=== PATIENT | male | born 1945 | race Caucasian/White ===

== ENCOUNTER → 2017-10-16 15:05 | Outpatient (CLI) | payer MEDICARE, SELFPAY ==
[2017-10-16 16:10] LABS: PSA,Total- Diagnostic < 0.01 ng/mL (0.0-4.0)
== END ==
PROVIDERS: Family Provider Family Medicine; PCP Family Medicine; Visit Provider Urology
DX: C61 Malignant neoplasm of prostate (principal)
CPT/HCPCS: 36415; 84153

== ENCOUNTER → 2018-02-02 09:10 | Outpatient (CLI) | payer MEDICARE, SELFPAY | PROVIDERS: Family Provider Family Medicine; PCP Family Medicine | DX: R00.2 Palpitations (principal) | CPT/HCPCS: 93225; 93226 ==

== ENCOUNTER → 2018-04-14 15:13 | Outpatient (CLI) | payer MEDICARE, SELFPAY ==
[2018-04-14 16:47] LABS: PSA,Total- Diagnostic 0.01 ng/mL (0.0-4.0)
== END ==
PROVIDERS: Family Provider Family Medicine; PCP Family Medicine; Referring Provider Urology; Visit Provider Urology
DX: C61 Malignant neoplasm of prostate (principal)
CPT/HCPCS: 36415; 84153

== ENCOUNTER → 2018-10-19 16:08 | Outpatient (CLI) | payer MEDICARE, SELFPAY ==
[2017-05-28 12:45] VITALS: BMI 24.0
[2018-10-19 17:57] LABS: PSA,Total- Diagnostic 0.01 ng/mL (0.0-4.0)
== END ==
PROVIDERS: Family Provider Family Medicine; PCP Family Medicine; Referring Provider Urology; Visit Provider Urology
DX: C61 Malignant neoplasm of prostate (principal)
CPT/HCPCS: 36415; 84153

== ENCOUNTER → 2018-11-12 15:38 | Outpatient (CLI) | payer MEDICARE, SELFPAY ==
[2017-05-28 12:45] VITALS: BMI 24.0
[2018-11-12 16:48] LABS: Anion Gap 7 (5-15); BUN 35 mg/dL (7-18); BUN/Creat Ratio 24.5 RATIO (10-20); Calcium,Total 8.9 mg/dL (8.5-10.1); Chloride 106 mmol/L (98-107); Creatinine, Serum 1.43 mg/dL (0.70-1.30); EST Glomerular Filtration Rate 52 mL/min (>60); Est Glom Filt Rate - Afr Amer 63 mL/min (>60); Glucose 86 mg/dL (74-106); Potassium 4.1 mmol/L (3.5-5.1); Sodium Level 142 mmol/L (136-145)
== END ==
PROVIDERS: Family Provider Family Medicine; PCP Family Medicine; Referring Provider Family Medicine; Visit Provider Family Medicine
DX: I10 Essential (primary) hypertension (principal)
CPT/HCPCS: 36415; 80048

== ENCOUNTER → 2019-04-09 10:34 | Outpatient (CLI) | payer MEDICARE, SELFPAY ==
[2017-05-28 12:45] VITALS: BMI 24.0
[2019-04-09 11:28] LABS: Anion Gap 6 (5-15); BUN 25 mg/dL (7-18); BUN/Creat Ratio 18.4 RATIO (10-20); Chloride 106 mmol/L (98-107); Creatinine, Serum 1.36 mg/dL (0.70-1.30); EST Glomerular Filtration Rate 55 mL/min (>60); Est Glom Filt Rate - Afr Amer 66 mL/min (>60); Glucose 89 mg/dL (74-106); PSA,Total- Diagnostic 0.02 ng/mL (0.0-4.0); Potassium 3.5 mmol/L (3.5-5.1); Sodium Level 141 mmol/L (136-145)
== END ==
PROVIDERS: Family Provider Family Medicine; PCP Family Medicine; Referring Provider Urology; Visit Provider Urology
DX: C61 Malignant neoplasm of prostate (principal); I10 Essential (primary) hypertension
CPT/HCPCS: 36415; 80048; 84153

== ENCOUNTER → 2019-07-13 11:20 | Outpatient (CLI) | payer MEDICARE, SELFPAY ==
[2019-07-13 12:02] LABS: Absolute Lymphocyte Count 1.75 X10^3/uL (0.83-4.51); Absolute Neutrophil Count 3.7 X10^3/uL (2.0-7.7); Basophil# 0.04 X10^3/uL; Basophil% 0.6 % (0-1); Eosinophil# 0.12 X10^3/uL; Eosinophils% 1.9 % (0-5); Hematocrit 42.1 % (40-54); Hemoglobin 14.5 g/dL (13.0-16.5); Lymphocyte # 1.75 X10^3/ul (4.0); Lymphocyte % 28.2 % (19-41); Mean Corp Hgb Conc 34.4 g/dL (32-36); Mean Corpuscular Hgb 30.2 pg (27.0-32.0); Mean Corpuscular Volume 87.7 fL (80-94); Mean Platelet Vol. 9.6 fl (6.2-12.0); Monocyte# 0.57 X10^3/uL; Monocyte% 9.2 % (0-10); NRBC Flagged by Analyzer 0 % (0-5); Neutrophil % 59.8 % (47-70); Platelet Count 202 K/mm3 (150-450); RBC Distribution Width CV 12.6 % (11.6-14.6); RBC Distribution Width SD 40.3 fl (35.1-43.9); White Blood Count 6.2 K/mm3 (4.4-11.0)
[2019-07-13 12:44] LABS: AST(SGOT) 24 U/L (15-37); Alanine Aminotransfer ALT/SGPT 37 U/L (16-61); Albumin, Serum 3.6 g/dL (3.2-5.0); Alkaline Phosphatase 56 U/L (45-117); Anion Gap 6 (5-15); BUN 25 mg/dL (7-18); BUN/Creat Ratio 18.9 RATIO (10-20); Calcium,Total 8.8 mg/dL (8.5-10.1); Chloride 103 mmol/L (98-107); Creatinine, Serum 1.32 mg/dL (0.70-1.30); EST Glomerular Filtration Rate 57 mL/min (>60); Est Glom Filt Rate - Afr Amer 69 mL/min (>60); Globulin 3.7 g/dL (2.2-4.2); Glucose 93 mg/dL (74-106); Magnesium 1.9 mg/dL (1.6-2.6); Potassium 3.8 mmol/L (3.5-5.1); Protein, Total 7.3 g/dL (6.4-8.2); Sodium Level 138 mmol/L (136-145); T4 Total, Thyroxin 8.4 ug/dL (4.5-12.1)
[2019-07-13 14:13] LABS: T3 Total - Triiodothyronine 1.04 ng/mL (0.6-1.81)
== END ==
PROVIDERS: Family Provider Family Medicine; PCP Family Medicine; Referring Provider Internal Medicine Cardiovascular Disease; Visit Provider Internal Medicine Cardiovascular Disease
DX: R06.09 Other forms of dyspnea (principal)
CPT/HCPCS: 36415; 80053; 83735; 84436; 84443; 84480; 85025

== ENCOUNTER → 2019-07-27 06:56 | Outpatient (CLI) | payer MEDICARE, SELFPAY ==
[2017-05-28 12:45] VITALS: BMI 24.0
[2019-07-27 08:24] LABS: Anion Gap 4 (5-15); BUN 24 mg/dL (7-18); Calcium,Total 9.2 mg/dL (8.5-10.1); Chloride 104 mmol/L (98-107); Creatinine, Serum 1.33 mg/dL (0.70-1.30); EST Glomerular Filtration Rate 56 mL/min (>60); Est Glom Filt Rate - Afr Amer 68 mL/min (>60); Glucose 101 mg/dL (74-106); Potassium 3.6 mmol/L (3.5-5.1); Sodium Level 137 mmol/L (136-145)
[2019-07-27 08:26] LABS: BNP,B-Type NATRIURETIC PEPTIDE 438.5 pg/mL (0-100)
== END ==
PROVIDERS: Family Provider Family Medicine; PCP Family Medicine; Referring Provider Internal Medicine Cardiovascular Disease; Visit Provider Internal Medicine Cardiovascular Disease
DX: I48.91 Unspecified atrial fibrillation (principal)
CPT/HCPCS: 36415; 80048; 83880

== ENCOUNTER → 2019-11-29 15:05 | Outpatient (CLI) | payer MEDICARE, SELFPAY ==
[2017-05-28 12:45] VITALS: BMI 24.0
[2019-11-29 15:47] LABS: PSA,Total- Diagnostic 0.02 ng/mL (0.0-4.0)
== END ==
PROVIDERS: PCP Family Medicine; Visit Provider Urology
DX: C61 Malignant neoplasm of prostate (principal)
CPT/HCPCS: 36415; 84153

== ENCOUNTER → 2020-05-25 13:23 | Outpatient (CLI) | payer MEDICARE, SELFPAY ==
[2017-05-28 12:45] VITALS: BMI 24.0
[2020-05-25 15:34] LABS: PSA,Total- Diagnostic 0.02 ng/mL (0.0-4.0)
== END ==
PROVIDERS: PCP Family Medicine; Referring Provider Urology; Visit Provider Urology
DX: C61 Malignant neoplasm of prostate (principal)
CPT/HCPCS: 36415; 84153

== ENCOUNTER → 2020-12-15 11:40 | Outpatient (CLI) | payer MEDICARE, SELFPAY ==
[2020-12-15 13:17] LABS: PSA,Total- Diagnostic 0.03 ng/mL (0.0-4.0)
== END ==
PROVIDERS: PCP Family Medicine; Visit Provider Urology
DX: C61 Malignant neoplasm of prostate (principal)
CPT/HCPCS: 36415; 84153

== ENCOUNTER → 2021-02-02 13:40 | Outpatient (CLI) | payer MEDICARE, SELFPAY ==
[2017-05-28 12:45] VITALS: BMI 24.0
[2021-02-02 15:28] LABS: Hematocrit 40.7 % (40-54); Hemoglobin 14.1 g/dL (13.0-16.5); Mean Corp Hgb Conc 34.6 g/dL (32-36); Mean Corpuscular Hgb 30.4 pg (27.0-32.0); Mean Corpuscular Volume 87.7 fL (80-94); Mean Platelet Vol. 9.4 fl (6.2-12.0); Platelet Count 212 K/mm3 (150-450); RBC Distribution Width CV 12.7 % (11.6-14.6); RBC Distribution Width SD 40.8 fl (35.1-43.9); Red Blood Count 4.64 M/mm3 (4.6-6.2); White Blood Count 6.4 K/mm3 (4.4-11.0)
[2021-02-02 15:54] LABS: Anion Gap 8 (5-15); BUN 32 mg/dL (7-18); BUN/Creat Ratio 18.1 RATIO (10-20); Calcium,Total 9.5 mg/dL (8.5-10.1); Chloride 104 mmol/L (98-107); Creatinine, Serum 1.77 mg/dL (0.70-1.30); EST Glomerular Filtration Rate 40 mL/min (>60); Est Glom Filt Rate - Afr Amer 49 mL/min (>60); Glucose 112 mg/dL (74-106); Potassium 3.8 mmol/L (3.5-5.1); Sodium Level 139 mmol/L (136-145)
== END ==
PROVIDERS: PCP Family Medicine; Referring Provider Urology; Visit Provider Urology
DX: Z03.818 Encounter for observation for suspected exposure to other biological agents ruled out (principal)
CPT/HCPCS: 36415; 80048; 85027; 87426; C9803

== ENCOUNTER → 2021-02-26 15:34 | Outpatient (CLI) | payer MEDICARE, SELFPAY ==
[2017-05-28 12:45] VITALS: BMI 24.0
[2021-02-26 16:33] LABS: AST(SGOT) 25 U/L (15-37); Alanine Aminotransfer ALT/SGPT 48 U/L (16-61); Albumin, Serum 3.5 g/dL (3.2-5.0); Alkaline Phosphatase 65 U/L (45-117); Anion Gap 7 (5-15); BUN 30 mg/dL (7-18); BUN/Creat Ratio 16.9 RATIO (10-20); Calcium,Total 8.8 mg/dL (8.5-10.1); Chloride 105 mmol/L (98-107); Cholesterol 171 mg/dL (200); Creatinine, Serum 1.78 mg/dL (0.70-1.30); EST Glomerular Filtration Rate 40 mL/min (>60); Est Glom Filt Rate - Afr Amer 48 mL/min (>60); Globulin 3.6 g/dL (2.2-4.2); Glucose 106 mg/dL (74-106); High Density Lipoprotein 46 mg/dL; Potassium 3.6 mmol/L (3.5-5.1); Protein, Total 7.1 g/dL (6.4-8.2); Sodium Level 140 mmol/L (136-145); Triglycerides 211 mg/dL; Very Low Density Lipoprotein 42 mg/dL (5-40)
== END ==
PROVIDERS: PCP Family Medicine; Referring Provider Family Medicine; Visit Provider Family Medicine
DX: I10 Essential (primary) hypertension (principal)
CPT/HCPCS: 36415; 80053; 80061

== ENCOUNTER → 2021-03-13 12:03 | Outpatient (CLI) | payer MEDICARE, SELFPAY ==
[2021-03-13 12:33] LABS: Erythrocyte Sedimentation Rate 12 mm/hr (0-20)
[2021-03-13 13:10] LABS: Vitamin B12 530 pg/mL (211-911)
[2021-03-13 13:20] LABS: ALB/GLOB Ratio 0.9 RATIO (0.9-2.4); AST(SGOT) 24 U/L (15-37); Alanine Aminotransfer ALT/SGPT 44 U/L (16-61); Albumin, Serum 3.7 g/dL (3.2-5.0); Alkaline Phosphatase 69 U/L (45-117); Anion Gap 7 (5-15); BUN 31 mg/dL (7-18); BUN/Creat Ratio 23.3 RATIO (10-20); Calcium,Total 9.3 mg/dL (8.5-10.1); Chloride 102 mmol/L (98-107); Creatinine, Serum 1.33 mg/dL (0.70-1.30); EST Glomerular Filtration Rate 56 mL/min (>60); Est Glom Filt Rate - Afr Amer 68 mL/min (>60); Globulin 4.1 g/dL (2.2-4.2); Glucose 97 mg/dL (74-106); Potassium 3.7 mmol/L (3.5-5.1); Protein, Total 7.8 g/dL (6.4-8.2); Sodium Level 135 mmol/L (136-145); Thyroid Stim Hormone (TSH) 4.12 uIU/mL (0.358-3.74)
== END ==
PROVIDERS: PCP Family Medicine; Referring Provider Family Medicine; Visit Provider Family Medicine
DX: R41.0 Disorientation, unspecified (principal); R26.89 Other abnormalities of gait and mobility; R51.9 Headache, unspecified
CPT/HCPCS: 36415; 80053; 82607; 84443; 85652

== ENCOUNTER 2021-03-15 13:36 | Emergency (ER) | payer MEDICARE, SELFPAY ==
[2021-03-15] VITALS (12 sets, daily range): BP systolic 112–177; BP diastolic 56–95; PULSE 55–83; RESP 12–19; TEMP 36.3; O2SAT 94–98; BMI 25.1
--- NOTE | 2021-03-15 14:56 | EKG12_ITS ---
Test Reason : NEURO S/SX Blood Pressure : / mmHG Vent. Rate : 059 BPM Atrial Rate : 059 BPM P-R Int : 224 ms QRS Dur : 156 ms QT Int : 478 ms P-R-T Axes : 030 -60 071 degrees QTc Int : 473 ms Sinus bradycardia with 1st degree A-V block Left axis deviation Left bundle branch block Abnormal ECG Confirmed by JUAQUIN FULLER, CIRILO ([id number]), supervising editor news reel TREVON CARTER ([id number]) on 03/20/2021 8:29:52 AM Referred By: MARYLOU Confirmed By:PRAKASH REZA MD
--- NOTE | 2021-03-15 14:56 | CT_ITS ---
STUDY: CT HEAD STROKE PROTOCOL W/O CONTRAST INJECTION REASON FOR EXAM: Male, 75 years old. Neuro deficit, acute, stroke suspected RADIATION DOSAGE (If Supplied By Facility): CTDIvol = ( ) mGy, DLP = ( ) mGycm TECHNIQUE: Transaxial CT imaging of the brain was performed without administration of intravenous contrast material. Individualized dose optimization techniques were used for this CT. COMPARISON: No relevant priors. FINDINGS: Normal soft tissue structures. Normal calvarium. There is moderate cerebral atrophy with widening of the extra-axial spaces and ventricular dilatation. There is a region of low attenuation within the right parietal and occipital lobes with mass effect on the posterior horn of the right lateral ventricle. There is right to left midline shift of 5 mm. Normal white matter tracts of the cerebral hemispheres. Normal basal ganglia and thalami. Normal brainstem. There is mild cerebellar atrophy. There is no intracranial hemorrhage. Normal visualized paranasal sinuses. CT/STROKE Brain/Head without Cont IMPRESSION: Region of low attenuation involving the right parietal and occipital lobes which may be secondary to an acute infarct or a possible underlying mass with associated edema; there is associated right to left midline shift of 5 mm. Recommend MRI with contrast for further characterization. N.B. : The above Results were Read Back by Shonna Brewster MD to Dr Catherine MD, and understanding confirmed on 03/15/2021 16:34:11 (ET). Electronically Signed: Shonna Brewster MD at 16:35 EDT Tel , Service support ,
--- NOTE | 2021-03-15 14:56 | RAD_ITS ---
STUDY: X-RAY CHEST REASON FOR EXAM: Male, 75 years old. Neuro deficit, acute, stroke suspected TECHNIQUE: Single frontal view of the chest. COMPARISON: 01/08/2017 FINDINGS: There is no new focal consolidation. Normal size heart. Normal mediastinum and liane. Normal visualized pulmonary arteries. Normal visualized aortic arch and descending thoracic aorta. Normal visualized thoracic spine. There are stable left posterior rib deformities consistent with healed fractures. There is no demonstrated abnormality of the visualized soft tissue structures of the upper abdomen. RAD/Chest 1 View IMPRESSION: No acute cardiopulmonary process. Electronically Signed: Shonna Brewster MD at 15:45 EDT Tel , Service support ,
--- NOTE | 2021-03-15 14:57 | EDS_ITS ---
HPI <Dr. Patrick Alexander DO - Last Filed: 03/16/21 10:11> History of Present Illness Chief Complaint: Neuro S/Sx Informant: patient and spouse/S.O. Narrative Narrative: Presents for evaluation reported concerns of stroke symptoms. Symptoms started back March 05 approximately 10 days ago. Stated initially earlier in February that headache and fevers with Covid testing is negative. On and off headaches since then. On the he noted tingling weakness on the left side. He is right-hand dominant. States he went seen in outpatient physician office was diagnosed with sinusitis placed on antibiotics for 10 days. 2 days later saw his PCP on the , was told nothing can get done until antibiotics were done. He reported persistent left-sided symptoms at that time. Denies stroke history. History of paroxysmal atrial fibrillation. He is followed by cardiology in [place]. He has had cardiac ablations in the past however placed on amiodarone which maintains his normal sinus rhythm. He is on Xarelto with no missed doses. He states he was off Xarelto at the end of January for a couple days due to hydrocele procedure. He states he is unable to see periphery on the left eye also with onset of symptoms. Spouse states called PCP a week ago blood work was obtained and they are trying to get an outpatient MRI. They called back today with concerns and was told to go to the emergency department. Denies any cardiac stent history or any aspirin therapy. Prior similar symptoms: No PFSH <Dr. Patrick Alexander DO - Last Filed: 03/16/21 10:11> [facility] Medical History (Updated 03/16/21 @ 10:[address] Patrick Alexander DO) Atrial fibrillation Hypertension Prostate cancer Home Medications amiodarone 200 mg PO DAILY 03/15/21 [History Last Taken 03/15/21] amlodipine 10 mg PO DAILY 03/15/21 [History Last Taken 03/15/21] amoxicillin-pot clavulanate 1 tab PO Q12H 03/15/21 [History Last Taken 03/15/21] coQ10 (ubiquinol) 100 mg PO DAILY 03/15/21 [History Last Taken 03/15/21] hydrochlorothiazide 25 mg PO DAILY 03/15/21 [History Last Taken 03/15/21] losartan 100 mg PO DAILY 03/15/21 [History Last Taken 03/15/21] metoprolol tartrate 25 mg PO QHS 03/15/21 [History Last Taken 03/14/21] multivitamin 1 tab PO DAILY 03/15/21 [History Last Taken 03/14/21] potassium chloride 10 meq PO QHS 03/15/21 [History Last Taken 03/14/21] rivaroxaban [Xarelto] 15 mg PO QHS 03/15/21 [History Last Taken 03/14/21] Allergy/AdvReac Type Severity Reaction Status Date / Time adhesive tape AdvReac WELTS WITH Verified 03/15/21 13:41 PROLONGED USE Social History Smoking Status: Former smoker ROS <Dr. Patrick Alexander DO - Last Filed: 03/16/21 10:11> ROS ED Constitutional Constitutional ED: Denies chills, fever(s) or sweats Eyes Eyes: Reports other Details: Peripheral vision loss to the left ; Denies change in vision ENT ENT ED: Denies dysphagia or sore throat Cardiovascular Cardiovascular: Denies chest pain, leg edema, palpitations or racing heartbeat Respiratory/Chest Respiratory/Chest: Denies cough, dyspnea or dyspnea on exertion Gastrointestinal Gastrointestinal: Denies abdominal pain, diarrhea, nausea or vomiting Genitourinary Genitourinary ED: Denies dysuria, hematuria or urinary frequency Musculoskeletal Musculoskeletal: Denies back pain, extremity pain or neck pain Integumentary Denies rash or wounds Neurologic Neurologic: Reports headache(s) and paresthesias; Denies weakness EXAM <Dr. Patrick Alexander DO - Last Filed: 03/16/21 10:11> Physical Exam Const Vital Signs: 03/15/21 13:41 03/15/21 15:44 03/15/21 16:24 Temperature 97.4 F L Temperature Source Temporal Pulse Rate 63 57 L 61 Respiratory Rate 17 19 H 12 Blood Pressure 177/61 H 153/56 H Blood Pressure Mean 99 88 Pulse Ox 97 95 97 Oxygen Delivery Method Room Air Room Air Room Air 03/15/21 16:30 03/15/21 17:10 03/15/21 17:30 Temperature Temperature Source Pulse Rate 66 63 55 L Respiratory Rate 16 12 16 Blood Pressure 141/85 H 141/58 H 138/56 H Blood Pressure Mean 103 85 83 Pulse Ox 97 98 95 Oxygen Delivery Method Room Air Room Air Room Air 03/15/21 18:30 03/15/21 20:00 03/15/21 21:00 Temperature Temperature Source Pulse Rate 57 L 62 68 Respiratory Rate 18 12 18 Blood Pressure 149/59 H 137/95 H 132/68 H Blood Pressure Mean 89 109 89 Pulse Ox 95 95 94 Oxygen Delivery Method Room Air Room Air Room Air 03/15/21 21:09 03/15/21 22:00 03/15/21 23:00 Temperature Temperature Source Pulse Rate 83 65 68 Respiratory Rate 14 12 16 Blood Pressure 112/79 147/69 H 137/58 H Blood Pressure Mean 90 95 84 Pulse Ox 97 97 94 Oxygen Delivery Method Room Air Room Air Room Air 03/16/21 03:38 03/16/21 03:39 03/16/21 05:27 Temperature 98.0 F Temperature Source Pulse Rate 78 79 Respiratory Rate 16 16 16 Blood Pressure 134/56 H 134/56 H 161/67 H Blood Pressure Mean 82 82 98 Pulse Ox 97 97 95 Oxygen Delivery Method Room Air Room Air Positive well nourished and well developed General Appearance ED: well developed and NAD HEENT Reports moist mucous membranes normocephalic and atraumatic Eyes EOMs intact bilaterally and conjunctivae normal Eyes Narrative: Left eye peripheral hemianopsia General Eye ED: Yes normal appearance of both eyes Neck no lymphadenopathy and supple General: Negative for tenderness Chest Wall Chest: Negative for tenderness Resp normal respiratory effort and normal air movement Effort and Inspection: symmetric chest movement; Negative for respiratory distress Cardio regular rate, regular rhythm and no murmurs Peripheral Pulses: pulses 2+ throughout GI normal to inspection, nondistended, normoactive bowel sounds and non-tender Palpation: Negative for guarding or rebound tenderness present Back/Spine no CVA tenderness and no thoracic nor lumbar tenderness Extremity normal to inspection General Extremety ED: Negative for edema or tenderness General Extremity: Negative for edema Neuro oriented x3 Neuro Narrative: NIH of 3 for left hemianopsia, left leg drift, paresthesias lateral aspect distal left leg lower lateral distal forearm. Sensorium / Orientation: awake and alert Skin no rashes or lesions noted and no wounds STROKE Vital Signs/Narrative: Vital Signs Resp BP Pulse Ox 03/16/21 05:27 16 161/67 H 95 <Christopher Phillips MD - Last Filed: 03/15/21 23:58> Physical Exam Const Vital Signs: 03/15/21 13:41 03/15/21 15:44 03/15/21 16:24 Temperature 97.4 F L Temperature Source Temporal Pulse Rate 63 57 L 61 Respiratory Rate 17 19 H 12 Blood Pressure 177/61 H 153/56 H Blood Pressure Mean 99 88 Pulse Ox 97 95 97 Oxygen Delivery Method Room Air Room Air Room Air 03/15/21 16:30 03/15/21 17:10 03/15/21 17:30 Temperature Temperature Source Pulse Rate 66 63 55 L Respiratory Rate 16 12 16 Blood Pressure 141/85 H 141/58 H 138/56 H Blood Pressure Mean 103 85 83 Pulse Ox 97 98 95 Oxygen Delivery Method Room Air Room Air Room Air 03/15/21 18:30 03/15/21 20:00 03/15/21 21:00 Temperature Temperature Source Pulse Rate 57 L 62 68 Respiratory Rate 18 12 18 Blood Pressure 149/59 H 137/95 H 132/68 H Blood Pressure Mean 89 109 89 Pulse Ox 95 95 94 Oxygen Delivery Method Room Air Room Air Room Air 03/15/21 21:09 03/15/21 22:00 03/15/21 23:00 Temperature Temperature Source Pulse Rate 83 65 68 Respiratory Rate 14 12 16 Blood Pressure 112/79 147/69 H 137/58 H Blood Pressure Mean 90 95 84 Pulse Ox 97 97 94 Oxygen Delivery Method Room Air Room Air Room Air 03/16/21 03:38 03/16/21 03:39 03/16/21 05:27 Temperature 98.0 F Temperature Source Pulse Rate 78 79 Respiratory Rate 16 16 16 Blood Pressure 134/56 H 134/56 H 161/67 H Blood Pressure Mean 82 82 98 Pulse Ox 97 97 95 Oxygen Delivery Method Room Air Room Air STROKE Vital Signs/Narrative: Vital Signs Resp BP Pulse Ox 03/16/21 05:27 16 161/67 H 95 <Dr. Bernardo Ma MD - Last Filed: 03/16/21 08:00> Physical Exam Const Vital Signs: 03/15/21 13:41 03/15/21 15:44 03/15/21 16:24 Temperature 97.4 F L Temperature Source Temporal Pulse Rate 63 57 L 61 Respiratory Rate 17 19 H 12 Blood Pressure 177/61 H 153/56 H Blood Pressure Mean 99 88 Pulse Ox 97 95 97 Oxygen Delivery Method Room Air Room Air Room Air 03/15/21 16:30 03/15/21 17:10 03/15/21 17:30 Temperature Temperature Source Pulse Rate 66 63 55 L Respiratory Rate 16 12 16 Blood Pressure 141/85 H 141/58 H 138/56 H Blood Pressure Mean 103 85 83 Pulse Ox 97 98 95 Oxygen Delivery Method Room Air Room Air Room Air 03/15/21 18:30 03/15/21 20:00 03/15/21 21:00 Temperature Temperature Source Pulse Rate 57 L 62 68 Respiratory Rate 18 12 18 Blood Pressure 149/59 H 137/95 H 132/68 H Blood Pressure Mean 89 109 89 Pulse Ox 95 95 94 Oxygen Delivery Method Room Air Room Air Room Air 03/15/21 21:09 03/15/21 22:00 03/15/21 23:00 Temperature Temperature Source Pulse Rate 83 65 68 Respiratory Rate 14 12 16 Blood Pressure 112/79 147/69 H 137/58 H Blood Pressure Mean 90 95 84 Pulse Ox 97 97 94 Oxygen Delivery Method Room Air Room Air Room Air 03/16/21 03:38 03/16/21 03:39 03/16/21 05:27 Temperature 98.0 F Temperature Source Pulse Rate 78 79 Respiratory Rate 16 16 16 Blood Pressure 134/56 H 134/56 H 161/67 H Blood Pressure Mean 82 82 98 Pulse Ox 97 97 95 Oxygen Delivery Method Room Air Room Air STROKE Vital Signs/Narrative: Vital Signs Resp BP Pulse Ox 03/16/21 05:27 16 161/67 H 95 MDM <Dr. Patrick Alexander, DO - Last Filed: 03/16/21 10:11> [facility] Narrative Medical decision making narrative: Patient exam NIH of 3, he has deficits concerning of stroke. Symptoms 10 days, in addition he is on Xarelto therefore he is not a TPA candidate. Stroke work-up will be obtained and we will plan to admit for further work-up without a stroke history. EKG NSR. CT brain discussion with rads, notes right parietal-occipital edema with 5mm mass effect concerning for possible underlying mass. Patient with history of remote prostate CA in past with resection. Denied any radio/chemo therapy. Decadron IV given. MRI w/wo contrast order for further delineation to assist with disposition due to no neurosurgery coverage at this facility. Patient signed out to evening physician. Lab Data Labs: Laboratory Results - last 24 hr 03/15/21 03/15/21 03/15/21 15:25 15:25 15:25 WBC 8.4 RBC 4.89 Hgb 14.9 Hct 43.3 MCV 88.5 MCH 30.5 MCHC 34.4 RDW Std Deviation 41.0 RDW Coeff of Mei 12.6 Plt Count 266 MPV 8.2 Immature Gran % (Auto) 0.600 Neut % (Auto) 79.7 H Lymph % (Auto) 10.8 L Ector % (Auto) 7.1 Eos % (Auto) 1.1 Baso % (Auto) 0.7 Absolute Neuts (auto) 6.7 Absolute Lymphs (auto) 0.90 Nucleated RBC % 0 PT 13.3 INR 1.1 APTT 28.9 Sodium 136 Potassium 4.0 Chloride 102 Carbon Dioxide 30.0 Anion Gap 4 L BUN 33 H Creatinine 1.31 H Estim Creat Clear Calc 53.49 Est GFR (MDRD) Af Amer 69 Est GFR (MDRD) Non-Af 57 L BUN/Creatinine Ratio 25.2 H Glucose 92 Calcium 9.6 Troponin I High Sens 10 Radiography Diagnostic Testing: Radiology Impression Brain CT 03/15/21 14:56 IMPRESSION: Region of low attenuation involving the right parietal and occipital lobes which may be secondary to an acute infarct or a possible underlying mass with associated edema; there is associated right to left midline shift of 5 mm. Recommend MRI with contrast for further characterization. N.B. : The above Results were Read Back by Shonna Brewster MD to Dr Catherine MD, and understanding confirmed on 03/15/2021 16:34:11 (ET). Electronically Signed: Shonna Brewster MD at 16:35 EDT Tel , Service support , ADDENDUM: 03/15/21 1642 IMPRESSION: Region of low attenuation involving the right parietal and occipital lobes which may be secondary to an acute infarct or a possible underlying mass with associated edema; there is associated right to left midline shift of 5 mm. Recommend MRI with contrast for further characterization. N.B. : The above Results were Read Back by Shonna Brewster MD to Dr Catherine MD, and understanding confirmed on 03/15/2021 16:34:11 (ET). Electronically Signed: Shonna Brewster MD at 16:35 EDT Tel , Service support , ADDENDUM: 03/15/21 1801 Chest X-Ray 03/15/21 14:56 IMPRESSION: No acute cardiopulmonary process. 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 Differential diagnosis includes glioblastoma versus choroid plexus carcinoma arising from the atrium of the right lateral ventricle. Electronically Signed: Neil Kiran MD at 21:04 EDT , Service support , <Christopher Phillips MD - Last Filed: 03/15/21 23:58> [facility] Lab Data Labs: Laboratory Results - last 24 hr 03/15/21 03/15/21 03/15/21 15:25 15:25 15:25 WBC 8.4 RBC 4.89 Hgb 14.9 Hct 43.3 MCV 88.5 MCH 30.5 MCHC 34.4 RDW Std Deviation 41.0 RDW Coeff of Mei 12.6 Plt Count 266 MPV 8.2 Immature Gran % (Auto) 0.600 Neut % (Auto) 79.7 H Lymph % (Auto) 10.8 L Ector % (Auto) 7.1 Eos % (Auto) 1.1 Baso % (Auto) 0.7 Absolute Neuts (auto) 6.7 Absolute Lymphs (auto) 0.90 Nucleated RBC % 0 PT 13.3 INR 1.1 APTT 28.9 Sodium 136 Potassium 4.0 Chloride 102 Carbon Dioxide 30.0 Anion Gap 4 L BUN 33 H Creatinine 1.31 H Estim Creat Clear Calc 53.49 Est GFR (MDRD) Af Amer 69 Est GFR (MDRD) Non-Af 57 L BUN/Creatinine Ratio 25.2 H Glucose 92 Calcium 9.6 Troponin I High Sens 10 Radiography Diagnostic Testing: Radiology Impression Brain CT 03/15/21 14:56 IMPRESSION: Region of low attenuation involving the right parietal and occipital lobes which may be secondary to an acute infarct or a possible underlying mass with associated edema; there is associated right to left midline shift of 5 mm. Recommend MRI with contrast for further characterization. N.B. : The above Results were Read Back by Shonna Brewster MD to Dr Catherine MD, and understanding confirmed on 03/15/2021 16:34:11 (ET). Electronically Signed: Shonna Brewster MD at 16:35 EDT Tel , Service support , ADDENDUM: 03/15/21 1642 IMPRESSION: Region of low attenuation involving the right parietal and occipital lobes which may be secondary to an acute infarct or a possible underlying mass with associated edema; there is associated right to left midline shift of 5 mm. Recommend MRI with contrast for further characterization. N.B. : The above Results were Read Back by Shonna Brewster MD to Dr Catherine MD, and understanding confirmed on 03/15/2021 16:34:11 (ET). Electronically Signed: Shonna Brewster MD at 16:35 EDT Tel , Service support , ADDENDUM: 03/15/21 1801 Chest X-Ray 03/15/21 14:56 IMPRESSION: No acute cardiopulmonary process. 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 Differential diagnosis includes glioblastoma versus choroid plexus carcinoma arising from the atrium of the right lateral ventricle. Electronically Signed: Neil Kiran MD at 21:04 EDT , Service support , <Dr. Bernardo Ma MD - Last Filed: 03/16/21 08:00> MDM MDM Narrative Medical decision making narrative: Arrangements have been made to transfer him to [facility]. There were no issues here. Be transferred in the morning. Lab Data Labs: Laboratory Results - last 24 hr 03/15/21 03/15/21 03/15/21 15:25 15:25 15:25 WBC 8.4 RBC 4.89 Hgb 14.9 Hct 43.3 MCV 88.5 MCH 30.5 MCHC 34.4 RDW Std Deviation 41.0 RDW Coeff of Mei 12.6 Plt Count 266 MPV 8.2 Immature Gran % (Auto) 0.600 Neut % (Auto) 79.7 H Lymph % (Auto) 10.8 L Ector % (Auto) 7.1 Eos % (Auto) 1.1 Baso % (Auto) 0.7 Absolute Neuts (auto) 6.7 Absolute Lymphs (auto) 0.90 Nucleated RBC % 0 PT 13.3 INR 1.1 APTT 28.9 Sodium 136 Potassium 4.0 Chloride 102 Carbon Dioxide 30.0 Anion Gap 4 L BUN 33 H Creatinine 1.31 H Estim Creat Clear Calc 53.49 Est GFR (MDRD) Af Amer 69 Est GFR (MDRD) Non-Af 57 L BUN/Creatinine Ratio 25.2 H Glucose 92 Calcium 9.6 Troponin I High Sens 10 Radiography Diagnostic Testing: Radiology Impression Brain CT 03/15/21 14:56 IMPRESSION: Region of low attenuation involving the right parietal and occipital lobes which may be secondary to an acute infarct or a possible underlying mass with associated edema; there is associated right to left midline shift of 5 mm. Recommend MRI with contrast for further characterization. N.B. : The above Results were Read Back by Shonna Brewster MD to Dr Catherine MD, and understanding confirmed on 03/15/2021 16:34:11 (ET). Electronically Signed: Shonna Brewster MD at 16:35 EDT Tel , Service support , ADDENDUM: 03/15/21 1642 IMPRESSION: Region of low attenuation involving the right parietal and occipital lobes which may be secondary to an acute infarct or a possible underlying mass with associated edema; there is associated right to left midline shift of 5 mm. Recommend MRI with contrast for further characterization. N.B. : The above Results were Read Back by Shonna Brewster MD to Dr Catherine MD, and understanding confirmed on 03/15/2021 16:34:11 (ET). Electronically Signed: Shonna Brewster MD at 16:35 EDT Tel , Service support , ADDENDUM: 03/15/21 1801 Chest X-Ray 03/15/21 14:56 IMPRESSION: No acute cardiopulmonary process. 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 Differential diagnosis includes glioblastoma versus choroid plexus carcinoma arising from the atrium of the right lateral ventricle. Electronically Signed: Neil Kiran MD at 21:04 EDT , Service support , <Dr. Patrick Alexander, DO - Last Filed: 03/16/21 10:11> Critical Care Time Critical Care Time: Yes Critical care time (excluding procedures): Discussing w/Patient &/or Family/Airline Hostess, Discussing w/Consultants, Arranging Admission or Transfer, Performing Direct Patient Care at Bedside and - (40 minutes) Discharge Plan Triage Chief Complaint: Neuro S/Sx ED Provider: Christopher Phillips Dx/Rx/DC Orders Clinical Impression: Brain mass, Hemianopia of left eye, Paresthesia of left arm and leg, Personal history of prostate cancer Prescriptions: No Action multivitamin Tablet 1 tab PO DAILY RF: 0 amiodarone 200 mg tablet 200 mg PO DAILY RF: 0 potassium chloride 10 mEq tablet extended release 10 meq PO QHS RF: 0 amlodipine 10 mg tablet 10 mg PO DAILY RF: 0 hydrochlorothiazide 25 mg tablet 25 mg PO DAILY RF: 0 losartan 100 mg tablet 100 mg PO DAILY RF: 0 amoxicillin-pot clavulanate 875-125 mg tablet 1 tab PO Q12H RF: 0 metoprolol tartrate 25 mg tablet 25 mg PO QHS RF: 0 Xarelto 15 mg tablet 15 mg PO QHS RF: 0 coQ10 (ubiquinol) 100 mg Capsule 100 mg PO DAILY RF: 0 Primary Care Provider: Jay Tubbs Referrals: Jay Tubbs DO [Primary Care Provider] - Disposition Disposition: Acute Care Hospital Discharge Location: [facility] Discharge Date/Time: 03/16/21 06:20
[2021-03-15 15:32] LABS: Absolute Neutrophil Count 6.7 X10^3/uL (2.0-7.7); Basophil# 0.06 X10^3/uL; Basophil% 0.7 % (0-1); Eosinophil# 0.09 X10^3/uL; Eosinophils% 1.1 % (0-5); Hematocrit 43.3 % (40-54); Hemoglobin 14.9 g/dL (13.0-16.5); Lymphocyte % 10.8 % (19-41); Mean Corp Hgb Conc 34.4 g/dL (32-36); Mean Corpuscular Hgb 30.5 pg (27.0-32.0); Mean Corpuscular Volume 88.5 fL (80-94); Mean Platelet Vol. 8.2 fl (6.2-12.0); Monocyte# 0.59 X10^3/uL; Monocyte% 7.1 % (0-10); NRBC Flagged by Analyzer 0 % (0-5); Neutrophil # 6.66 X10^3/uL (2.7-7.7); Neutrophil % 79.7 % (47-70); Platelet Count 266 K/mm3 (150-450); RBC Distribution Width CV 12.6 % (11.6-14.6); Red Blood Count 4.89 M/mm3 (4.6-6.2); White Blood Count 8.4 K/mm3 (4.4-11.0)
[2021-03-15 15:49] LABS: International Normalized Ratio 1.1; Prothrombin Time (Protime)PT. 13.3 SECONDS (11.7-14.9)
[2021-03-15 15:50] LABS: Partial Thromboplast Time 28.9 Seconds (24.1-36.2)
[2021-03-15 15:53] LABS: Anion Gap 4 (5-15); BUN 33 mg/dL (7-18); BUN/Creat Ratio 25.2 RATIO (10-20); Calcium,Total 9.6 mg/dL (8.5-10.1); Chloride 102 mmol/L (98-107); Creatinine, Serum 1.31 mg/dL (0.70-1.30); EST Glomerular Filtration Rate 57 mL/min (>60); Est Glom Filt Rate - Afr Amer 69 mL/min (>60); Estimated Creatinine Clearance 53.49 ml/min; Glucose 92 mg/dL (74-106); Sodium Level 136 mmol/L (136-145); Troponin-I HS 10 pg/mL (3.0-78.0)
--- NOTE | 2021-03-15 16:37 | MRI_ITS ---
STUDY: MRI BRAIN WITH AND WITHOUT CONTRAST REASON FOR EXAM: Male, 75 years old. brain mass TECHNIQUE: Standardized multiplanar fat and water weighted pulse sequences were obtained. IV 15cc dotarem was administered for the contrast portion of the examination. COMPARISON: CT of the brain 03/15/2021 FINDINGS: . There is abnormal signal intensity seen within the right posterior temporal right parietal and occipital lobes consistent with vasogenic edema with associated parietal-occipital mass measuring approximately 4.6 x 2.4 x 5 cm demonstrating rim enhancement as well as heterogeneous internal enhancement. There is mass effect effacing the cortical sulci as well as apparent encasement of the occipital horn of the right lateral ventricle. There is extension of the lesion across the midline along the splenium of the corpus callosum suggesting that the lesion possibly represents glioblastoma.. This also could represent choroid plexus carcinoma arising from the atrium of the right lateral ventricle. Normal bilateral basal ganglia. Normal thalami. There is no extra-axial fluid accumulation. Normal flow voids within the major intracranial circulation suggesting patency by spin echo criteria. Normal venous enhancement. There is no enhancing intra-axial or extra-axial abnormality. Normal sella turcica, pituitary gland, infundibular stalk, optic chiasm and hypothalamus. Normal tectal plate and pineal gland. Normal midbrain, danny and medulla. Normal cerebellum. Normal basal cisterns. Normal bilateral temporal bones. Normal bilateral internal auditory canals. No demonstrated orbital abnormality, within the constraints of a routine brain study. Normal visualized paranasal sinuses. Normal calvarium and skull base. Normal visualized soft tissue structures. Normal visualized upper cervical spine. 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 Differential diagnosis includes glioblastoma versus choroid plexus carcinoma arising from the atrium of the right lateral ventricle. Electronically Signed: Neil Kiran MD at 21:04 EDT , Service support ,
[2021-03-15] MEDS: dexAMETHasone 10 MG/ML Vial IV (16:52)
--- NOTE | 2021-03-15 22:52 | ED.RN ---
[facility] called for transfer, they are talking to transfer center at this time
--- NOTE | 2021-03-16 03:23 | ED.RN ---
physicians called back with update. It will be another 90 to 2 hours for transport
[2021-03-16 03:38] VITALS: BP 134/56; PULSE 78; RESP 16; O2SAT 97
[2021-03-16 03:39] VITALS: BP 134/56; PULSE 79; RESP 16; TEMP 36.7; O2SAT 97
[2021-03-16 05:27] VITALS: BP 161/67; RESP 16; O2SAT 95
== END 2021-03-16 06:20 | disposition short-term general hospital (02) ==
PROVIDERS: Emergency Medicine; Emergency Provider Emergency Medicine; PCP Family Medicine
DX: G93.9 Disorder of brain, unspecified (principal); H53.47 Heteronymous bilateral field defects; R20.2 Paresthesia of skin; Z85.46 Personal history of malignant neoplasm of prostate; I10 Essential (primary) hypertension; I48.0 Paroxysmal atrial fibrillation; Z87.891 Personal history of nicotine dependence; Z79.01 Long term (current) use of anticoagulants; Z79.899 Other long term (current) drug therapy
CPT/HCPCS: 70450; 70553; 71045; 80048; 84484; 85025; 85610; 85730; 87426; 93005; 96374; 99285; A9581; A4216

== ENCOUNTER 2021-04-13 14:30 | Inpatient (IN) | payer MEDICARE, SELFPAY ==
[2021-04-13] VITALS (16 sets, daily range): BP systolic 123–160; BP diastolic 68–84; PULSE 75–96; RESP 14–28; TEMP 36.6–37.9; O2SAT 85–96; BMI 24.3; BMI 24.0
--- NOTE | 2021-04-13 15:53 | EKG12_ITS ---
Test Reason : SOB Blood Pressure : / mmHG Vent. Rate : 082 BPM Atrial Rate : 082 BPM P-R Int : 198 ms QRS Dur : 148 ms QT Int : 412 ms P-R-T Axes : 034 -59 105 degrees QTc Int : 481 ms Normal sinus rhythm Left axis deviation Left bundle branch block Abnormal ECG Confirmed by MAL FULLER, TONIA ([id number]), assistant film editor TREVON CARTER ([id number]) on 04/16/2021 1:10:07 PM Referred By: Courtney Martinez Confirmed By:TONIA RESENDEZ MD
--- NOTE | 2021-04-13 15:53 | RAD_ITS ---
INDICATION: SOB EXAMINATION/TECHNIQUE: X-RAY - XR Chest 1 View COMPARISON: 03/15/2021. FINDINGS: Scattered interstitial opacities, most prevalent in the left midlung. Tortuous and calcified thoracic aorta. The heart is borderline enlarged. No pleural effusion or pneumothorax. Degenerative changes of the thoracic spine. RAD/Chest 1 View (Portable) IMPRESSION: Scattered interstitial opacities, most prevalent in the left midlung, concerning for pneumonia. Electronically Signed: Luis Osman MD at 16:54 EDT Tel , Service support ,
--- NOTE | 2021-04-13 16:05 | EDS_ITS ---
HPI History of Present Illness Chief Complaint: Cough Informant: patient and spouse/S.O. 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 He is presently on Decadron. He presents for Covid test. Pulse ox was 85% on room air. He does report headache. He does report loss of taste and smell. He does have upper respiratory symptoms. He does have a cough which is productive. He states he is nonproductive. There has been some confusion which is new. He denies nausea, vomiting diarrhea. He denies dysuria, frequency, urgency or hematuria. He states he has had swelling of his legs and his doctor was going to prescribe Lasix. He denies black or maroon-colored stool. He is unvaccinated. Onset of symptoms 5 days. PE Risk Factors: Positive for Cancer; Negative for OCP + Smoking + > 35, Prior DVT or PE, Recent immobilization, Recent surgery and Recent travel Prior similar symptoms: No Recent Illness/Hospitalization: Yes ([facility] for [facility]) [facility] Medical History Atrial fibrillation Hypertension Prostate cancer Home Medications amiodarone 200 mg PO DAILY 03/15/21 [History Last Taken 03/15/21] amlodipine 10 mg PO DAILY 03/15/21 [History Last Taken 03/15/21] amoxicillin-pot clavulanate 1 tab PO Q12H 03/15/21 [History Last Taken 03/15/21] coQ10 (ubiquinol) 100 mg PO DAILY 03/15/21 [History Last Taken 03/15/21] hydrochlorothiazide 25 mg PO DAILY 03/15/21 [History Last Taken 03/15/21] losartan 100 mg PO DAILY 03/15/21 [History Last Taken 03/15/21] metoprolol tartrate 25 mg PO QHS 03/15/21 [History Last Taken 03/14/21] multivitamin 1 tab PO DAILY 03/15/21 [History Last Taken 03/14/21] potassium chloride 10 meq PO QHS 03/15/21 [History Last Taken 03/14/21] rivaroxaban [Xarelto] 15 mg PO QHS 03/15/21 [History Last Taken 03/14/21] Allergy/AdvReac Type Severity Reaction Status Date / Time flecainide Allergy Other Verified 04/13/21 14:35 adhesive tape AdvReac WELTS WITH Verified 04/13/21 14:34 PROLONGED USE Social History (Updated 04/13/21 @ 16:[address] Camacho Pavon MD) household members: spouse housing: house Smoking Status: Former smoker alcohol intake: never substance use type: does not use ROS ROS ED Review of Systems ROS Unobtainable: due to mental status Constitutional Constitutional ED: Reports chills, fever(s) and sweats; Denies weight loss Eyes Eyes: Denies blurry vision, change in vision or diplopia ENT ENT ED: Reports rhinorrhea and sore throat; Denies ear pain Cardiovascular Cardiovascular: Reports palpitations; Denies chest pain, orthopnea, paroxysmal nocturnal dyspnea or racing heartbeat Respiratory/Chest Respiratory/Chest: Reports cough, dyspnea, dyspnea on exertion and sputum; Denies orthopnea or paroxysmal nocturnal dyspnea Gastrointestinal Gastrointestinal: Denies abdominal pain, diarrhea, nausea or vomiting Genitourinary Genitourinary ED: Denies dysuria, hematuria or urinary frequency Musculoskeletal Musculoskeletal: Reports arthralgias and myalgias; Denies back pain or neck pain Integumentary Denies rash Neurologic Neurologic: Reports headache(s) and weakness; Denies paresthesias Hematologic/Lymphatic Hematologic/Lymphatic: Denies easy bleeding or easy bruising Allergic/Immunologic Allergic/Immunologic ED: Denies urticaria EXAM Physical Exam Const Vital Signs: 04/13/21 14:31 04/13/21 16:00 04/13/21 16:01 Temperature 98.8 F 98 F Temperature Source Temporal Temporal Pulse Rate 85 96 Respiratory Rate 28 H 17 Respiratory Effort Short of Breath Labored Respiratory Depth Normal Respiratory Pattern Normal Blood Pressure 123/84 H 128/78 H Blood Pressure Mean 97 94 Pulse Ox 85 92 Oxygen Delivery Method Room Air Nasal Cannula Nasal Cannula Oxygen Flow Rate (L/min) 4 6 6 Fraction of Inspired Oxygen (FIO2) 93 04/13/21 16:06 04/13/21 16:24 04/13/21 16:59 Temperature 100.1 F H Temperature Source Temporal Pulse Rate Respiratory Rate Respiratory Effort Respiratory Depth Respiratory Pattern Blood Pressure 146/73 H Blood Pressure Mean 97 Pulse Ox 89 92 Oxygen Delivery Method Nasal Cannula Nasal Cannula Oxygen Flow Rate (L/min) 6 12 Fraction of Inspired Oxygen (FIO2) 04/13/21 17:00 Temperature 100 F H Temperature Source Temporal Pulse Rate 82 Respiratory Rate 14 Respiratory Effort Respiratory Depth Respiratory Pattern Blood Pressure 146/73 H Blood Pressure Mean 97 Pulse Ox 92 Oxygen Delivery Method Nasal Cannula Oxygen Flow Rate (L/min) 12 Fraction of Inspired Oxygen (FIO2) Positive well nourished and well developed; Negative for obese, cachectic, contractures or unkempt General Appearance ED: well developed and other Patient appears ill. He is tachycardic. He is hypoxic. He is slightly confused. ; Negative for unkempt, cachectic, contractures or NAD Nutritional Appearance: Negative for cachectic or obese HEENT Reports TM's clear and dry mucous membranes; Denies moist mucous membranes atraumatic; Negative for trauma or tenderness Tympanic Membrane ED: Yes TM's clear Mouth ED: Yes dry mucous membranes Mouth: dry mucous membranes Eyes PERRL and EOMs intact bilaterally General Eye ED: Negative for pale conjunctiva or scleral icterus Neck no lymphadenopathy, supple, no meningeal signs and no JVD General: Negative for tenderness Resp No normal respiratory effort and No clear to auscultation bilaterally Auscultation: rales bilateral lower and diminished lung sounds Cardio regular rate, regular rhythm, S1 normal heart sound, S2 normal heart sound and no murmurs GI non-tender, non-distended and no masses Auscultation: normoactive bowel sounds Palpation: soft Back/Spine normal to inspection; Negative for no CVA tenderness Extremity Negative for normal to inspection Extremity Narrative: Patient has significant pitting edema of both lower extremities. There is no leg vein distention. There is no asymmetry. There is no discoloration. There is no tenderness on the distribution deep venous system. General Extremety ED: Yes edema; Negative for tenderness General Extremity: edema Neuro CN's II-XII intact bilaterally and no sensory deficits noted Hawk Coma Scale: document GCS findings Spontaneous Obeys Commands Confused 14 Sensorium / Orientation: alert, oriented to person, oriented to place and confused Motor Exam: strength 5/5 throughout Psych Negative for mental status grossly normal Appearance: Negative for unkempt Thought Process: No normal thought process Skin no wounds Lesions: no lesions Rashes: no rashes MDM MDM MDM Narrative Medical decision making narrative: With bilateral rales, hypoxia loss of taste and smell patient has clinical presentation of Covid. Covid test was ordered. He is presently on Decadron and reason Decadron was not ordered in the emergency department. ABG was obtained to assess CO2 as well as AA gradient. Patient has mild encephalitis suspect due to the Covid infection. He will require admission. He and his were told he would require admission. He is presently 8990% on 5 to 6 L of oxygen by nasal cannula. Lab Data Attestation: I reviewed the patient's lab results. Lab results narrative: ABG reveals a alkalosis with a PCO2 of 28.4, PaO2 of 65.1 on 6 L by nasal cannula and bicarb of 26 with a base excess of 4.0. Covid test was positive. Labs: Laboratory Results - last 24 hr 04/13/21 04/13/21 16:20 16:20 WBC 4.9 RBC 4.74 Hgb 14.4 Hct 42.0 MCV 88.6 MCH 30.4 MCHC 34.3 RDW Std Deviation 43.8 RDW Coeff of Mei 13.5 Plt Count 119 L MPV 9.1 Immature Gran % (Auto) 1.600 H Neut % (Auto) 93.4 H Lymph % (Auto) 2.6 L [place] % (Auto) 2.2 Eos % (Auto) 0.0 Baso % (Auto) 0.2 Absolute Neuts (auto) 4.6 Absolute Lymphs (auto) 0.13 L Nucleated RBC % 0 Differential Comment Platelet Estimate SLT DEC RBC Morphology NORM C+C Sodium 135 L Potassium 3.8 Chloride 99 Carbon Dioxide 29.0 Anion Gap 7 BUN 34 H Creatinine 1.28 Estim Creat Clear Calc 56.41 Est GFR (MDRD) Af Amer 71 Est GFR (MDRD) Non-Af 58 L BUN/Creatinine Ratio 26.6 H Glucose 160 H Calcium 9.0 ABG Data ABG results: ABG 04/13/21 16:53 Specimen Type ART Sample Site L Radial pH 7.57 H Bicarbonate Actual 26.0 Total CO2 27 Base Excess 4 H O2 Saturation 96 ABG pCO2 28.4 L ABG pO2 65 L Thomas Test Positive O2 Delivery Device Cannula Liter Flow 13.0 Radiography Chest X-Ray - ED: 1 View, Read by ED Physician, Heart, Right Infiltrate, Left Infiltrate and - (Patient has findings consistent with Covid pneumonia. The infiltrates are much more noted left side versus right.) Diagnostic Testing: Radiology Impression Chest X-Ray 04/13/21 15:53 IMPRESSION: Scattered interstitial opacities, most prevalent in the left midlung, concerning for pneumonia. Electronically Signed: Luis Osman MD at 16:54 EDT Tel , Service support , Discharge Plan Triage Chief Complaint: Cough ED Provider: Camacho Pavon Dx/Rx/DC Orders Clinical Impression: Pneumonia due to COVID-19 virus, Acute respiratory failure with hypoxia, Acute renal insufficiency Prescriptions: No Action multivitamin Tablet 1 tab PO DAILY RF: 0 amiodarone 200 mg tablet 200 mg PO DAILY RF: 0 potassium chloride 10 mEq tablet extended release 10 meq PO QHS RF: 0 amlodipine 10 mg tablet 10 mg PO DAILY RF: 0 hydrochlorothiazide 25 mg tablet 25 mg PO DAILY RF: 0 losartan 100 mg tablet 100 mg PO DAILY RF: 0 amoxicillin-pot clavulanate 875-125 mg tablet 1 tab PO Q12H RF: 0 metoprolol tartrate 25 mg tablet 25 mg PO QHS RF: 0 Xarelto 15 mg tablet 15 mg PO QHS RF: 0 coQ10 (ubiquinol) 100 mg Capsule 100 mg PO DAILY RF: 0 Primary Care Provider: Jay Tubbs Referrals: Jay Tubbs DO [Primary Care Provider] - Disposition Disposition: Acute Care Hospital [facility]
[2021-04-13 16:30] LABS: Absolute Lymphocyte Count 0.13 X10^3/uL (0.83-4.51); Absolute Neutrophil Count 4.6 X10^3/uL (2.0-7.7); Basophil# 0.01 X10^3/uL; Basophil% 0.2 % (0-1); Hemoglobin 14.4 g/dL (13.0-16.5); Lymphocyte # 0.13 X10^3/ul (0.83-4.51); Lymphocyte % 2.6 % (19-41); Mean Corp Hgb Conc 34.3 g/dL (32-36); Mean Corpuscular Hgb 30.4 pg (27.0-32.0); Mean Corpuscular Volume 88.6 fL (80-94); Mean Platelet Vol. 9.1 fl (6.2-12.0); Monocyte# 0.11 X10^3/uL; Monocyte% 2.2 % (0-10); NRBC Flagged by Analyzer 0 % (0-5); Neutrophil # 4.59 X10^3/uL (2.7-7.7); Neutrophil % 93.4 % (47-70); POSITIVE DIFFERENTIAL YES; Platelet Count 119 K/mm3 (150-450); RBC Distribution Width CV 13.5 % (11.6-14.6); RBC Distribution Width SD 43.8 fl (35.1-43.9); Red Blood Count 4.74 M/mm3 (4.6-6.2); White Blood Count 4.9 K/mm3 (4.4-11.0)
[2021-04-13 16:40] LABS: Differential Indicated SCAN CRITERIA MET
[2021-04-13 16:45] LABS: Anion Gap 7 (5-15); BUN 34 mg/dL (7-18); BUN/Creat Ratio 26.6 RATIO (10-20); Chloride 99 mmol/L (98-107); Creatinine, Serum 1.28 mg/dL (0.70-1.30); EST Glomerular Filtration Rate 58 mL/min (>60); Est Glom Filt Rate - Afr Amer 71 mL/min (>60); Estimated Creatinine Clearance 56.41 ml/min; Glucose 160 mg/dL (74-106); Potassium 3.8 mmol/L (3.5-5.1); Sodium Level 135 mmol/L (136-145)
[2021-04-13 17:01] LABS: Allen Test Positive; Base Excess 4 mmol/L (-2 to +2); Blood Gas Specimen Type ART; O2 Delivery Device Cannula; PO2 65 mmHG (75-100); SITE L Radial; SO2 96 % (95-99); Total Carbon Dioxide 27 mmol/L; pCO2 28.4 mmHg (35-45); pH 7.57 (7.35-7.45)
[2021-04-13 17:18] LABS: Platelet Estimate SLT DEC (ADEQ); Red Cell Morphology NORM C+C NORMAL (NORM C&C)
--- NOTE | 2021-04-13 17:32 | NURSING ---
PCU [facility] RESP FAILURE WITH HYPOXIA, BILATERAL PNEUMONIA, COVID
[2021-04-13 17:37] LABS: Lactic Acid 2.2 mmol/L (0.4-1.9)
--- NOTE | 2021-04-13 18:17 | PCM.HP.STD ---
Documented by User: Dyllan JI 04/13/21 18:42 HPI - General General Date of Admission: 04/13/21 Date of Service: 04/13/21 Chief Complaint: Hypoxia HPI Narrative TEJA ROBERSON, is a 75 M who presents to the ED at [facility] on 04/13/2021 with a chief complaint of hypoxia. Patient reports that he checked his pulse oxygen this morning and it read in the low 80s. Patient reports this is abnormal and usually he is in the low to mid 90s. Patient presented to his primary care provider yesterday for evaluation of general illness, and reports that his pulse ox was normal. Patient reports that he and his have had a general illness for the past week, but overall he has felt like this has been manageable. Today he presents to the emergency department with hypoxia, fatigue, nonproductive cough and chills. Denies chest pain, shortness of breath, palpitations, hemoptysis, sputum production, fever, chills, N/V/D. Patient is currently satting 91% on 14 L via nasal cannula. Temperature is mildly elevated at 100 ?F. Hypertensive at 160/72. CBC does not demonstrate a leukocytosis. Platelets are 119. ABG reveals a pH of 7.57, PCO2 of 28 and a P O2 of 65. BMP is generally unremarkable. Lactate is elevated at 2.2. Chest x-ray demonstrates scattered interstitial opacities in the left midlung, suggestive of pneumonia. Rapid Covid is positive. [facility] Medical History (Updated 04/13/21 @ 19:11 by Lizbeth Frederick) Asthma Atrial fibrillation Brain mass Cancer COPD (chronic obstructive pulmonary disease) Former smoker Hypertension Kidney stones Prostate cancer Vision loss of left eye Vision loss of right eye Home Medications amiodarone 200 mg PO DAILY 03/15/21 [History Last Taken 04/13/21] amlodipine 10 mg PO DAILY 03/15/21 [History Last Taken 04/13/21] losartan 100 mg PO DAILY 03/15/21 [History Last Taken 04/13/21] metoprolol tartrate 25 mg PO QHS 03/15/21 [History Last Taken 04/12/21] multivitamin 1 tab PO DAILY 03/15/21 [History Last Taken 04/13/21] potassium chloride 10 meq PO QHS 03/15/21 [History Last Taken 04/12/21] dexamethasone 4 mg PO BID 04/13/21 [History Last Taken 04/13/21] Allergy/AdvReac Type Severity Reaction Status Date / Time flecainide Allergy Other Verified 04/13/21 14:35 adhesive tape AdvReac WELTS WITH Verified 04/13/21 14:34 PROLONGED USE Family History (Updated 04/13/21 @ 18:25 by Dyllan JI) Father Jenny Gehrig disease Cancer Mother Cancer Surgical History no surgical history no surgical history Social History household members: spouse housing: house Smoking Status: Former smoker alcohol intake: never substance use type: does not use ROS Constitutional Constitutional: Reports chills, fatigue, malaise and weakness; Denies anorexia, change in weight, fever(s), night sweats or other Eyes Eyes: Denies blurry vision, change in eye color, change in vision, discharge from eye(s), double vision, erythema, eye pain, loss of vision or other ENT HEENT: Denies abnormal hearing, dysphagia, ear pain, epistaxis, headache(s), hearing loss, nasal congestion, nasal discharge, post nasal drip, sinus pressure, sore throat or other Cardiovascular Cardiovascular: Denies chest pain, claudication, dyspnea on exertion, edema, lightheadedness, orthopnea, palpitations, paroxysmal nocturnal dyspnea, rapid heart rate, syncope or other Respiratory/Chest Respiratory/Chest: Reports cough and productive cough; Denies dyspnea, excessive phlegm production, hemoptysis, shortness of breath at rest, shortness of breath with exertion, wheezing or other Gastrointestinal Gastrointestinal: Denies abdominal pain, coffee ground emesis, constipation, diarrhea, dyspepsia, hematemesis, hematochezia, loose stools, melena, nausea, vomiting or other Genitourinary Genitourinary: Denies burning urination, difficulty urinating, dysuria, hematuria, nocturia, urinary frequency, urinary hesitancy, urinary incontinence, urinary urgency or other Musculoskeletal Musculoskeletal: Denies arthralgias, back pain, joint pain, joint stiffness, joint swelling, myalgias, neck pain or other Neurologic Neurologic: Denies abnormal gait, abnormal speech, confusion, disequilibrium, dizziness, focal weakness, headache(s), numbness, paresthesias, seizure-like activity, seizures, syncope, tingling, tremor(s) or other Psychiatric Psychiatric: Denies anxiety, depression, homicidal ideation, suicidal ideation or other Endocrine Endocrinology: Denies change in body appearance, cold intolerance, excessive sweating, heat intolerance, polydipsia, polyuria or other Hematologic/Lymphatic Hematologic/Lymphatic: Denies anemia, easy bleeding, easy bruising, lymphadenopathy or other Allergic/Immunologic Allergic/Immunologic: Denies rhinitis, hives, eczemia, asthma or other Vital Signs Vital Signs Vital Signs: 04/13/21 14:31 04/13/21 16:00 04/13/21 16:01 Temperature 98.8 F 98 F Temperature Source Temporal Temporal Pulse Rate 85 96 Respiratory Rate 28 H 17 Respiratory Effort Short of Breath Labored Respiratory Depth Normal Respiratory Pattern Normal Blood Pressure 123/84 H 128/78 H Blood Pressure Mean 97 94 Pulse Ox 85 92 Oxygen Delivery Method Room Air Nasal Cannula Nasal Cannula Oxygen Flow Rate (L/min) 4 6 6 Fraction of Inspired Oxygen (FIO2) 93 04/13/21 16:06 04/13/21 16:24 04/13/21 16:59 Temperature 100.1 F H Temperature Source Temporal Pulse Rate Respiratory Rate Respiratory Effort Respiratory Depth Respiratory Pattern Blood Pressure 146/73 H Blood Pressure Mean 97 Pulse Ox 89 92 Oxygen Delivery Method Nasal Cannula Nasal Cannula Oxygen Flow Rate (L/min) 6 12 Fraction of Inspired Oxygen (FIO2) 04/13/21 17:00 04/13/21 17:41 04/13/21 17:54 Temperature 100 F H 99 F Temperature Source Temporal Temporal Pulse Rate 82 86 Respiratory Rate 14 14 Respiratory Effort Respiratory Depth Respiratory Pattern Blood Pressure 146/73 H 160/72 H Blood Pressure Mean 97 101 Pulse Ox 92 91 91 Oxygen Delivery Method Nasal Cannula Nasal Cannula Nasal Cannula Oxygen Flow Rate (L/min) 12 14 Fraction of Inspired Oxygen (FIO2) Weight Weight: 179 lb Body Mass Index (BMI) 24.3 Physical Exam Const alert and oriented x3 General Appearance: cooperative HEENT normocephalic, head/scalp atraumatic, hearing grossly normal bilaterally and moist oral mucous membranes Eyes PERRL, EOMs intact bilaterally and conjunctivae normal Neck no lymphadenopathy, supple and no JVD Resp Resp Narrative: Hypoxic: Currently satting 91% on 14 L via nasal cannula. Effort and Inspection: abnormal respiratory pattern and labored Auscultation: diminished lung sounds Cardio regular rate, regular rhythm, no murmurs and no JVD GI normal to inspection, nondistended, normoactive bowel sounds, soft to palpation and non-tender Extremity normal to inspection, full ROM and no clubbing, cyanosis or edema Peripheral Pulses: Yes pulses 2+ throughout Skin no rashes or lesions noted, no wounds, skin turgor normal and no jaundice Neuro CN's II-XII intact bilaterally Psych affect normal Results Lab / Micro Data Result Diagrams: 04/13/21 16:20 04/13/21 16:20 Labs: Laboratory Results - last 24 hr 04/13/21 16:20: WBC 4.9, RBC 4.74, Hgb 14.4, Hct 42.0, MCV 88.6, MCH 30.4, MCHC 34.3, RDW Std Deviation 43.8, RDW Coeff of Mei 13.5, Plt Count 119 L, MPV 9.1, Immature Gran % (Auto) 1.600 H, Neut % (Auto) 93.4 H, Lymph % (Auto) 2.6 L, Clarke % (Auto) 2.2, Eos % (Auto) 0.0, Baso % (Auto) 0.2, Absolute Neuts (auto) 4.6, Absolute Lymphs (auto) 0.13 L, Nucleated RBC % 0, Differential Comment , Platelet Estimate SLT DEC, RBC Morphology NORM C+C 04/13/21 16:20: Sodium 135 L, Potassium 3.8, Chloride 99, Carbon Dioxide 29.0, Anion Gap 7, BUN 34 H, Creatinine 1.28, Estim Creat Clear Calc 56.41, Est GFR (MDRD) Af Amer 71, Est GFR (MDRD) Non-Af 58 L, BUN/Creatinine Ratio 26.6 H, Glucose 160 H, Calcium 9.0 04/13/21 16:20: Lactic Acid 2.2 H* Micro: Microbiology 04/13/21 16:18 Nasal Secretion SARS-CoV-2 Antigen (Rapid) - Final SARS-CoV-2 (COVID 19) ABG Data ABG results: ABG 04/13/21 16:53 Specimen Type ART Sample Site L Radial pH 7.57 H Bicarbonate Actual 26.0 Total CO2 27 Base Excess 4 H O2 Saturation 96 ABG pCO2 28.4 L ABG pO2 65 L Thomas Test Positive O2 Delivery Device Cannula Liter Flow 13.0 Radiology Impression Chest X-Ray 04/13/21 15:53 IMPRESSION: Scattered interstitial opacities, most prevalent in the left midlung, concerning for pneumonia. Electronically Signed: Luis Osman MD at 16:54 EDT Tel , Service support , Assessment & Plan Assessment/Plan (1) Pneumonia due to COVID-19 virus: (2) Acute respiratory failure with hypoxia: PLAN: Patient is a 75-year-old male who presents to the ED at [facility] with a chief complaint of hypoxia. Patient will be admitted to the hospital for management of acute hypoxic respiratory failure secondary to COVID-19 infection. 1) acute hypoxic respiratory failure secondary to pneumonia due to COVID-19 infection Patient currently satting at 91% on 14 L via nasal cannula. Rapid Covid is positive. Patient has not been vaccinated gets COVID-19. Patient does not meet SIRS criteria. CBC does not demonstrate a leukocytosis. Lactate is elevated at 2.2. Plan; admit to [facility] for management, initiated bronchodilators, initiate dexamethasone, pulmonary consult ordered, Covid droplet precautions ordered, sputum culture ordered, incentive spirometry ordered, strep pneumoniae and Legionella urine antigen ordered, viral respiratory panel ordered, procalcitonin ordered, CBC and BMP in a.m., case management consult ordered, PT/OT eval ordered, BMP ordered. 2) atrial fibrillation On amiodarone and metoprolol for rate and rhythm control. Patient is not on any anticoagulation. Plan; continue amiodarone and metoprolol. 3) HTN Continue metoprolol, losartan and amlodipine. 4) history of brain mass Patient reports history of brain mass, which he elected to not have worked up during recent hospital stay to [facility]. 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 Possible differential diagnosis include glioblastoma and choroid plexus carcinoma. DVT prophylaxis - Lovenox CODE STATUS: DNRCC-a, no intubation. 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 Patient seen by Dyllan Fermin PA-C, under the supervision of Dr. Martinez. Documented by User: Dr. Courtney Martinez MD 04/13/21 19:57 HPI - General General Date of Admission: 04/13/21 [facility] Medical History (Updated 04/13/21 @ 19:11 by Lizbeht Frederick) Asthma Atrial fibrillation Brain mass Cancer COPD (chronic obstructive pulmonary disease) Former smoker Hypertension Kidney stones Prostate cancer Vision loss of left eye Vision loss of right eye Home Medications amiodarone 200 mg PO DAILY 03/15/21 [History Last Taken 04/13/21] amlodipine 10 mg PO DAILY 03/15/21 [History Last Taken 04/13/21] losartan 100 mg PO DAILY 03/15/21 [History Last Taken 04/13/21] metoprolol tartrate 25 mg PO QHS 03/15/21 [History Last Taken 04/12/21] multivitamin 1 tab PO DAILY 03/15/21 [History Last Taken 04/13/21] potassium chloride 10 meq PO QHS 03/15/21 [History Last Taken 04/12/21] dexamethasone 4 mg PO BID 04/13/21 [History Last Taken 04/13/21] Allergy/AdvReac Type Severity Reaction Status Date / Time flecainide Allergy Other Verified 04/13/21 14:35 adhesive tape AdvReac WELTS WITH Verified 04/13/21 14:34 PROLONGED USE Family History (Updated 04/13/21 @ 18:25 by Dyllan JI) Father Jenny Gehrig disease Cancer Mother Cancer Surgical History no surgical history Social History household members: spouse housing: house Smoking Status: Former smoker alcohol intake: never substance use type: does not use Results Lab / Micro Data Result Diagrams: 04/13/21 16:20 04/13/21 16:20 Charges/Coding Addendum Addendum: This patient was seen in conjunction with MARGY Castillo. I have independently interviewed and examined the patient and reviewed pertinent historical, laboratory, and other data. Please refer to MARGY Castillo's note for his patient's presentation, findings, and recommendations. I have reviewed and his note and concur with his documentation 75-year-old male with past medical history of prostate CA status post prostatectomy, history of recent brain mass, unknown etiology, who comes in with cough, shortness of breath ongoing for 1 week. Patient was found to be hypoxic, saturating 85% on room air. Patient has improved to 92% on 15 L. Chest x-ray showed bilateral infiltrate. Lactic acid is 2.2 Patient is unvaccinated Physical Exam: Gen: Appears unwell, moderately dehydrated, not pale, not jaundiced, on 15 L of oxygen CVS:HS I +II, regular, no murmurs RESP: Diminished at lung bases GI: BS present and normal, soft, nontender, no palpable organs EXT:No edema ASSESSMENT: 1. Acute hypoxic respiratory failure secondary to acute COVID-19 pneumonia 2. Recent brain mass 3. Lactic acidosis secondary to #1 4. Hypertension 5. Atrial fibrillation 6. History of prostate cancer Plan: Check D-dimer stat Check urine Legionella, streptococcal, sputum cultures Pulmonology consult Continue breathing treatment, Decadron, remdesivir I discussed and explained in details the various types of CODE STATUS-full code, DNR CCA, DNR CC. Patient chose DNR CCA, no intubation. He does not want to be intubated or kept on life support in the event of a cardiopulmonary arrest. Time spent discussing CODE STATUS 16 minutes Visit Charges Inpatient E&M: 47282 Init Hosp L3 Procedures Hospitalists Procedures: 46104 Advncd Care Plan 30 Min
--- NOTE | 2021-04-13 18:50 | PCS.PANDOC ---
PANDEMIC DOCUMENTATION INITIATED: Date: 02/26/2021 Time: 190
[2021-04-13 19:55] LABS: BNP,B-Type NATRIURETIC PEPTIDE 103.6 pg/mL (0-100)
[2021-04-13 19:58] LABS: Procalcitonin 0.24 ng/mL (0.00-0.09)
[2021-04-13 20:26] LABS: Reflex Lactate? Y
[2021-04-13 21:07] LABS: D-Dimer Quantitative (DVT/PE) 0.75 FEU/ug/m (0.27-0.49)
[2021-04-13 21:09] LABS: Lactic Acid 1.8 mmol/L (0.4-1.9)
[2021-04-13] MEDS: Enoxaparin 30 MG/0.3 ML Syringe SC (21:49)
[2021-04-13] MEDS: dexAMETHasone 10 MG/ML Vial 6 MG IV (21:49)
[2021-04-13] MEDS: Metoprolol Tartrate 25 MG Tablet PO (21:49)
[2021-04-13] MEDS: Potassium Chloride Oral Tablet 10 MEQ PO (21:49)
[2021-04-14] VITALS (39 sets, daily range): BP systolic 96–150; BP diastolic 52–87; PULSE 68–91; RESP 12–31; TEMP 36–37.7; O2SAT 82–95
[2021-04-14 07:14] LABS: Absolute Lymphocyte Count 0.11 X10^3/uL (0.83-4.51); Absolute Neutrophil Count 2.8 X10^3/uL (2.0-7.7); Basophil# 0.01 X10^3/uL; Basophil% 0.3 % (0-1); Hematocrit 35.9 % (40-54); Hemoglobin 12.4 g/dL (13.0-16.5); Lymphocyte # 0.11 X10^3/ul (0.83-4.51); Lymphocyte % 3.6 % (19-41); Mean Corp Hgb Conc 34.5 g/dL (32-36); Mean Corpuscular Hgb 30.6 pg (27.0-32.0); Mean Corpuscular Volume 88.6 fL (80-94); Mean Platelet Vol. 8.8 fl (6.2-12.0); Monocyte# 0.06 X10^3/uL; NRBC Flagged by Analyzer 0 % (0-5); Neutrophil # 2.84 X10^3/uL (2.7-7.7); Neutrophil % 93.1 % (47-70); POSITIVE COUNT YES; POSITIVE DIFFERENTIAL YES; POSITIVE MORPHOLOGY YES; Platelet Count 95 K/mm3 (150-450); RBC Distribution Width CV 13.5 % (11.6-14.6); RBC Distribution Width SD 44.4 fl (35.1-43.9); Red Blood Count 4.05 M/mm3 (4.6-6.2); White Blood Count 3.1 K/mm3 (4.4-11.0)
[2021-04-14 07:34] LABS: Differential Indicated SCAN CRITERIA MET
[2021-04-14 07:36] LABS: ALB/GLOB Ratio 0.4 RATIO (0.9-2.4); AST(SGOT) 78 U/L (15-37); Alanine Aminotransfer ALT/SGPT 227 U/L (16-61); Albumin, Serum 1.6 g/dL (3.2-5.0); Alkaline Phosphatase 63 U/L (45-117); Anion Gap 7 (5-15); BUN 28 mg/dL (7-18); Calcium,Total 8.7 mg/dL (8.5-10.1); Chloride 98 mmol/L (98-107); Creatinine, Serum 0.97 mg/dL (0.70-1.30); EST Glomerular Filtration Rate 81 mL/min (>60); Est Glom Filt Rate - Afr Amer 98 mL/min (>60); Estimated Creatinine Clearance 74.44 ml/min; Glucose 131 mg/dL (74-106); Potassium 3.9 mmol/L (3.5-5.1); Protein, Total 5.6 g/dL (6.4-8.2); Sodium Level 135 mmol/L (136-145)
[2021-04-14] MEDS: Ipratropium/Albuterol Sulfate 3 ML AMPUL.NEB INHALATION ×4 (07:37→17:09)
[2021-04-14] MEDS: Acetaminophen 325 MG Tablet 650 MG PO (09:29)
[2021-04-14] MEDS: dexAMETHasone 10 MG/ML Vial 6 MG IV (09:29)
[2021-04-14] MEDS: Enoxaparin 30 MG/0.3 ML Syringe SC ×2 (09:29→19:50)
[2021-04-14] MEDS: Amiodarone 200 MG Tablet PO (09:30)
[2021-04-14] MEDS: amLODIPine 10 MG Tablet PO (09:30)
[2021-04-14] MEDS: Losartan Potassium 100 MG Tablet PO (09:30)
[2021-04-14] MEDS: 0.9% Saline Lock 10 ML Syringe IV ×2 (09:30→11:47)
--- NOTE | 2021-04-14 09:40 | NURSING ---
called resp therapy to increase o2. with airvo
[2021-04-14 10:16] LABS: Differential Comment SCANNED
--- NOTE | 2021-04-14 11:01 | CON.PCM.CC_ITS ---
Assessment & Plan Assessment/Plan (1) Pneumonia due to COVID-19 virus: (2) Acute respiratory failure with hypoxia: PLAN: RECOMMENDATIONS: 1. Continue remdesivir and Decadron therapy 2. Continue BiPAP and wean oxygen as tolerated. Possible attempt at Airvo to facilitate p.o. intake 3. Diuretics as tolerated 4. Wean oxygen as tolerated 5. Consider seizure precautions given history of brain mass 6. Delirium protocol 7. No intubation at this time IMPRESSIONS: 1. Acute hypoxic respiratory failure secondary to COVID-19 pneumonia Unclear if patient has an element of underlying COPD. Patient has had rapid progression and hypoxia. Given lower extremity edema, there is some concern for a possible concomitant congestive heart failure component. Patient will be given Lasix. Patient would not qualify for baricitinib in my opinion secondary to his pancytopenia. We will continue with BiPAP for now. May attempt Airvo to facilitate p.o. nutrition. Patient is open to intubation if necessary. Will initiate zinc and vitamin C. 2. Suspected acute on chronic CHF/A. fib Patient currently appears to be relatively rate controlled. Patient does have some lower extremity edema. Patient has no echocardiogram on record. Defer to hospitalist on whether this would be ordered as an inpatient. Patient can have Lasix given renal function. Okay to continue rate control from my perspective. Patient is on DVT prophylaxis with Lovenox, but for anticoagulation would be risky given patient's brain mass. 3. Recent diagnosis of brain mass/advanced age/hypertension/history of prostate cancer/unvaccinated status Complicates care, management, recovery and prognosis. Could consider seizure precautions given recent brain mass. Patient is on Decadron therapy. We will need to watch blood sugars closely. Patient may require basal insulin. TIME: 35 minutes critical care time spent addressing patient's acute hypoxic respiratory failure, suspected CHF, review of all data and collaboration with care team (9 AM to 11:30 AM) HPI Consult Data Date of Consult: 04/14/21 HPI Narrative HPI Narrative: TEJA ROBERSON is a 75 M, with past medical history listed below, who presents to [facility] on 04/13/2021 secondary to cough and worsening shortness of breath. Patient reportedly is on Decadron at baseline secondary to a newly diagnosed brain mass in the right hemisphere. There is concern for COVID-19, so the patient wanted to be tested. Patient had reported a severe headache and loss of taste and smell. Patient's cough has been nonproductive and patient's reported that he had been having some more confusion as of late. Patient did have some lower extremity swelling and there was discussion about starting Lasix. Patient not reported any bleeding complications. Patient is unvaccinated. In the ER, patient was afebrile, but tachypneic and requiring 6 L nasal cannula to maintain saturations. This could worsen over the course of the hos pitalization/ER stay through 12 L. Laboratory work-up showed a white blood cell count of 3.9 and platelet count of 119. Patient's creatinine was slightly elevated at 1.28 and glucose was elevated at 160. An ABG showed hyperventilation with increased AA gradient. COVID test positive. Patient was originally admitted to the MedSurg unit. However, over the course of the evening patient's oxygenation status has continued to worsen. Patient got into an Airvo at 100% and still saturating in the upper 80s. CODE STATUS was addressed by the hospitalist and patient had elected to be DNR Comfort Care arrest with intubation. Patient was transferred to the intensive care unit and placed on BiPAP therapy. Patient subjectively felt much improved on BiPAP. Patient was able to be weaned to 50% FiO2. Patient does have some confusion, so obtaining a history is relatively difficult. Patient had initially told me that he had not felt well in 3 to 4 weeks. Patient was aware of the recent diagnosis of the brain tumor/mass and states that there has not been a biopsy. Patient does have a history of smoking, but he denied COPD. Patient was clear that he does not use inhalers at baseline. Patient is not aware of needing supplemental oxygen previously. Patient is not aware of ever having a pulmonary function test previously. Obtaining a full review of systems was difficult given his confusion. [facility] Medical History Asthma Atrial fibrillation Brain mass Cancer COPD (chronic obstructive pulmonary disease) Former smoker Hypertension Kidney stones Prostate cancer Vision loss of left eye Vision loss of right eye Home Medications amiodarone 200 mg PO DAILY 03/15/21 [History Last Taken 04/13/21] amlodipine 10 mg PO DAILY 03/15/21 [History Last Taken 04/13/21] losartan 100 mg PO DAILY 03/15/21 [History Last Taken 04/13/21] metoprolol tartrate 25 mg PO QHS 03/15/21 [History Last Taken 04/12/21] multivitamin 1 tab PO DAILY 03/15/21 [History Last Taken 04/13/21] potassium chloride 10 meq PO QHS 03/15/21 [History Last Taken 04/12/21] dexamethasone 4 mg PO BID 04/13/21 [History Last Taken 04/13/21] Allergy/AdvReac Type Severity Reaction Status Date / Time flecainide Allergy Other Verified 04/13/21 14:35 adhesive tape AdvReac WELTS WITH Verified 04/13/21 14:34 PROLONGED USE Family History Father Jenny Gehrig disease Cancer Mother Cancer Surgical History no surgical history Social History household members: spouse housing: house Smoking Status: Former smoker alcohol intake: never substance use type: does not use ROS ROS Narrative See HPI Review of Systems ROS Unobtainable: due to encephalopathy Physical Exam Const alert and oriented x3 General Appearance: cooperative, anxious and on BiPAP; Negative for appears older than stated age HEENT normocephalic, head/scalp atraumatic, hearing grossly normal bilaterally and moist oral mucous membranes Eyes PERRL, EOMs intact bilaterally and conjunctivae normal Neck no lymphadenopathy, supple and no JVD Chest inspection of chest normal Chest: symmetrical chest wall rise; Negative for crepitus Resp Effort and Inspection: labored Auscultation: diminished lung sounds; Negative for rales, rhonchi or wheezes Cardio regular rate, no murmurs and no JVD Rhythm: abnormal rhythm irregularly irregular GI normal to inspection, nondistended, normoactive bowel sounds, soft to palpation and non-tender Extremity normal to inspection and full ROM General Extremity: edema bilateral lower extremity Details: moderate; Negative for clubbing or cyanosis Peripheral Pulses: Yes pulses 2+ throughout Skin no rashes or lesions noted, no wounds, skin turgor normal and no jaundice Neuro CN's II-XII intact bilaterally Psych affect normal Lab / Micro Data Result Diagrams: 04/14/21 06:53 04/14/21 06:53 Labs: Laboratory Results - last 24 hr 04/13/21 16:20: WBC 4.9, RBC 4.74, Hgb 14.4, Hct 42.0, MCV 88.6, MCH 30.4, MCHC 34.3, RDW Std Deviation 43.8, RDW Coeff of Mei 13.5, Plt Count 119 L, MPV 9.1, Immature Gran % (Auto) 1.600 H, Neut % (Auto) 93.4 H, Lymph % (Auto) 2.6 L, [place] % (Auto) 2.2, Eos % (Auto) 0.0, Baso % (Auto) 0.2, Absolute Neuts (auto) 4.6, Absolute Lymphs (auto) 0.13 L, Nucleated RBC % 0, Differential Comment , Platelet Estimate SLT DEC, RBC Morphology NORM C+C 04/13/21 16:20: Sodium 135 L, Potassium 3.8, Chloride 99, Carbon Dioxide 29.0, Anion Gap 7, BUN 34 H, Creatinine 1.28, Estim Creat Clear Calc 56.41, Est GFR (MDRD) Af Amer 71, Est GFR (MDRD) Non-Af 58 L, BUN/Creatinine Ratio 26.6 H, Glucose 160 H, Calcium 9.0 04/13/21 16:20: Lactic Acid 2.2 H* 04/13/21 16:20: B-Natriuretic Peptide 103.6 H 04/13/21 16:20: Procalcitonin 0.24 H 04/13/21 20:09: D-Dimer Quant (PE/DVT) 0.75 H* 04/13/21 20:18: Lactic Acid 1.8 04/14/21 06:53: WBC 3.1 L, RBC 4.05 L, Hgb 12.4 L, Hct 35.9 L, MCV 88.6, MCH 30.6, MCHC 34.5, RDW Std Deviation 44.4 H, RDW Coeff of Mei 13.5, Plt Count 95 L , MPV 8.8, Immature Gran % (Auto) 1.000 H, Neut % (Auto) 93.1 H, Lymph % (Auto) 3.6 L, Meriwether % (Auto) 2.0, Eos % (Auto) 0.0, Baso % (Auto) 0.3, Absolute Neuts (auto) 2.8, Absolute Lymphs (auto) 0.11 L, Nucleated RBC % 0, Differential Comment SCANNED, Diff Path Review November04/14/21 06:53: Sodium 135 L, Potassium 3.9, Chloride 98, Carbon Dioxide 30.0, Anion Gap 7, BUN 28 H, Creatinine 0.97, Estim Creat Clear Calc 74.44, Est GFR (MDRD) Af Amer 98, Est GFR (MDRD) Non-Af 81, BUN/Creatinine Ratio 29.0 H, Glucose 131 H, Calcium 8.7, Total Bilirubin 0.70, AST 78 H, ALT 227 H, Alkaline Phosphatase 63, Total Protein 5.6 L, Albumin 1.6 L, Globulin 4.0, Albumin/Globulin Ratio 0.4 L Micro: Microbiology 04/14/21 00:00 Urine, Clean Catch Legionella Antigen - Final 04/14/21 00:00 Urine, Clean Catch Streptococcus pneumoniae Antigen (M - Final 04/13/21 19:28 Mucosa - Nasopharyngeal Respiratory Panel (PCR) - Final 04/13/21 16:18 Nasal Secretion SARS-CoV-2 Antigen (Rapid) - Final SARS-CoV-2 (COVID 19) ABG Data ABG results: ABG 04/13/21 16:53 Specimen Type ART Sample Site L Radial pH 7.57 H Bicarbonate Actual 26.0 Total CO2 27 Base Excess 4 H O2 Saturation 96 ABG pCO2 28.4 L ABG pO2 65 L Thomas Test Positive O2 Delivery Device Cannula Liter Flow 13.0 Radiology Impression Chest X-Ray 04/13/21 15:53 IMPRESSION: Scattered interstitial opacities, most prevalent in the left midlung, concerning for pneumonia. Electronically Signed: Luis Osman MD at 16:54 EDT Tel , Service support , Charges/Coding Procedures Hospitalists Procedures: 36296 Critial Care 1st Hr
[2021-04-14] MEDS: Furosemide 40 MG/4 ML Vial IV (11:47)
--- NOTE | 2021-04-14 12:41 | PCM.PN.HOSP ---
Subjective Subjective Had significant respiratory decline since admission. Initially in the ER when he presented to the hospital he was on 4 L and this has worsened moderate air Vo this morning he has been satting at 87% on 92% FiO2 on air Vo. Objective Data Objective Data Vital Signs: Vital Signs Temp Pulse Resp BP Pulse Ox 97.1 F L 69 22 H 102/53 L 91 04/14/21 12:00 04/14/21 12:05 04/14/21 12:00 04/14/21 12:00 04/14/21 12:00 Oxygen Flow Rate (L/min) 60 Oxygen Delivery Method Bi-pap Weight: 177 lb 0.499 oz Body Mass Index (BMI) 24.0 Intake & Output: Intake and Output for Last 24 Hours 04/13/21 04/14/21 04/15/21 03:59 03:59 03:59 Intake Total 250 / 250 Output Total 175 / 175 200 / 200 Balance 75 / 75 -200 / -200 Lab / Micro Data Result Diagrams: 04/14/21 06:53 04/14/21 06:53 Labs: Laboratory Results - last 24 hr 04/13/21 16:20: WBC 4.9, RBC 4.74, Hgb 14.4, Hct 42.0, MCV 88.6, MCH 30.4, MCHC 34.3, RDW Std Deviation 43.8, RDW Coeff of Mei 13.5, Plt Count 119 L, MPV 9.1, Immature Gran % (Auto) 1.600 H, Neut % (Auto) 93.4 H, Lymph % (Auto) 2.6 L, [place] % (Auto) 2.2, Eos % (Auto) 0.0, Baso % (Auto) 0.2, Absolute Neuts (auto) 4.6, Absolute Lymphs (auto) 0.13 L, Nucleated RBC % 0, Differential Comment , Platelet Estimate SLT DEC, RBC Morphology NORM C+C 04/13/21 16:20: Sodium 135 L, Potassium 3.8, Chloride 99, Carbon Dioxide 29.0, Anion Gap 7, BUN 34 H, Creatinine 1.28, Estim Creat Clear Calc 56.41, Est GFR (MDRD) Af Amer 71, Est GFR (MDRD) Non-Af 58 L, BUN/Creatinine Ratio 26.6 H, Glucose 160 H, Calcium 9.0 04/13/21 16:20: Lactic Acid 2.2 H* 04/13/21 16:20: B-Natriuretic Peptide 103.6 H 04/13/21 16:20: Procalcitonin 0.24 H 04/13/21 20:09: D-Dimer Quant (PE/DVT) 0.75 H* 04/13/21 20:18: Lactic Acid 1.8 04/14/21 06:53: WBC 3.1 L, RBC 4.05 L, Hgb 12.4 L, Hct 35.9 L, MCV 88.6, MCH 30.6, MCHC 34.5, RDW Std Deviation 44.4 H, RDW Coeff of Mei 13.5, Plt Count 95 L, MPV 8.8, Immature Gran % (Auto) 1.000 H, Neut % (Auto) 93.1 H, Lymph % (Auto) 3.6 L, [place] % (Auto) 2.0, Eos % (Auto) 0.0, Baso % (Auto) 0.3, Absolute Neuts (auto) 2.8, Absolute Lymphs (auto) 0.11 L, Nucleated RBC % 0, Differential Comment SCANNED, Diff Path Review November04/14/21 06:53: Sodium 135 L, Potassium 3.9, Chloride 98, Carbon Dioxide 30.0, Anion Gap 7, BUN 28 H, Creatinine 0.97, Estim Creat Clear Calc 74.44, Est GFR (MDRD) Af Amer 98, Est GFR (MDRD) Non-Af 81, BUN/Creatinine Ratio 29.0 H, Glucose 131 H, Calcium 8.7, Total Bilirubin 0.70, AST 78 H, ALT 227 H, Alkaline Phosphatase 63, Total Protein 5.6 L, Albumin 1.6 L, Globulin 4.0, Albumin/Globulin Ratio 0.4 L Micro: Microbiology 04/14/21 00:00 Urine, Clean Catch Legionella Antigen - Final 04/14/21 00:00 Urine, Clean Catch Streptococcus pneumoniae Antigen (M - Final 04/13/21 19:28 Mucosa - Nasopharyngeal Respiratory Panel (PCR) - Final 04/13/21 16:18 Nasal Secretion SARS-CoV-2 Antigen (Rapid) - Final SARS-CoV-2 (COVID 19) ABG Data ABG results: ABG 04/13/21 16:53 Specimen Type ART Sample Site L Radial pH 7.57 H Bicarbonate Actual 26.0 Total CO2 27 Base Excess 4 H O2 Saturation 96 ABG pCO2 28.4 L ABG pO2 65 L Thomas Test Positive O2 Delivery Device Cannula Liter Flow 13.0 Radiography Diagnostic Testing: Radiology Impression Chest X-Ray 04/13/21 15:53 IMPRESSION: Scattered interstitial opacities, most prevalent in the left midlung, concerning for pneumonia. Electronically Signed: Luis Osman MD at 16:54 EDT Tel , Service support , Physical Exam Const alert, oriented x3 and no apparent distress General Appearance: cooperative HEENT normocephalic and moist oral mucous membranes Eyes PERRL, EOMs intact bilaterally and conjunctivae normal Neck supple and no JVD Resp normal respiratory effort, no retractions and no use of accessory muscles Auscultation: diminished lung sounds; Negative for crackles, rales, rhonchi or wheezes Cardio regular rate, regular rhythm, S1 normal heart sound, S2 normal heart sound and no murmurs GI soft to palpation, non-tender and non-distended; Negative for hepatosplenomegaly Extremity General Extremity: edema; Negative for clubbing or cyanosis Skin no rashes or lesions noted Neuro no focal motor deficits and no sensory deficits noted Psych affect normal Appearance: appropriate Assessment & Plan Assessment/Plan (1) Pneumonia due to COVID-19 virus: (2) Acute respiratory failure with hypoxia: PLAN: 1. 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 He will be placed on BiPAP and transferred to the ICU -Discussed the case with ID unfortunately given his lymphopenia he does not meet criteria for baricitinib treatment, will continue to monitor if he does enter into arrange for treatment then hopefully can initiate -Consult mail weigher 2. HTN/A. fib -Continue with his home blood pressure medications -Continue with amiodarone -Not on any anticoagulation 3. Brain mass -Found recently at [facility] -Has not had a work-up DVT: Oumar Charges/Coding Visit Charges Inpatient E&M: 02694 Subs Hosp L2 Procedures Hospitalists Procedures: [id number] Advncd Care Plan 30 Min
[2021-04-14] MEDS: Ascorbic Acid 500 MG Tablet 1000 MG PO (15:18)
--- NOTE | 2021-04-14 15:24 | CASEMGMT ---
ANDRA HICKS Assessment: Pt noted to be recently transferred to ICU on bipap. Phone call placed to pt's for initial transition planning/care coordination assessment. ANDRA HICKS introduced self and role at [facility], voices understanding. Care providers, pharmacy, and demographics verified. PCP: [facility] Specialists: [facility] [place]; [facility]; Sh[facility]- [place] [facility] (has appt in May for brain mass w/u) Preferred Pharmacy: [facility] Insurance: [facility] Prescription Benefit: yes Living Will/HPOA: yes, pt's going to look for them. LNOK: -Suzette Living Arrangements: Pt lives with his in a single story home with one step to enter. Pt's states pt has been independent with ADLs although states she does help pt to get into the shower. They have four sons (3 local) who assist them currently with yard work or as otherwise needed. Transportation: Due to pt's brain mass, he is no longer driving. 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 DME: shower chair, BSC, high rise toilet, cane, walker, grab bars, hand held shower. Pt was not on O2 prior to admission and did not use bipap/cpap. HHC/SNF: Pt's denies any previous HHC/SNF services Plan: To be determined. Will continue to monitor and assist with discharge planning needs as they are identified. [place] [facility] RN CM
[2021-04-14] MEDS: Potassium Chloride Oral Tablet 10 MEQ PO (19:50)
[2021-04-14] MEDS: Metoprolol Tartrate 25 MG Tablet PO (19:50)
[2021-04-15] VITALS (37 sets, daily range): BP systolic 99–137; BP diastolic 42–92; PULSE 69–115; RESP 12–27; TEMP 36–36.6; O2SAT 85–97
[2021-04-15 04:28] LABS: Absolute Lymphocyte Count 0.08 X10^3/uL (0.83-4.51); Absolute Neutrophil Count 2.1 X10^3/uL (2.0-7.7); Basophil# 0.01 X10^3/uL; Basophil% 0.4 % (0-1); Hematocrit 34.5 % (40-54); Hemoglobin 11.8 g/dL (13.0-16.5); Lymphocyte # 0.08 X10^3/ul (0.83-4.51); Lymphocyte % 3.5 % (19-41); Mean Corp Hgb Conc 34.2 g/dL (32-36); Mean Corpuscular Hgb 30.6 pg (27.0-32.0); Mean Corpuscular Volume 89.6 fL (80-94); Mean Platelet Vol. 9.4 fl (6.2-12.0); Monocyte# 0.04 X10^3/uL; Monocyte% 1.8 % (0-10); NRBC Flagged by Analyzer 0 % (0-5); Neutrophil # 2.11 X10^3/uL (2.7-7.7); Neutrophil % 93.4 % (47-70); POSITIVE COUNT YES; POSITIVE DIFFERENTIAL YES; POSITIVE MORPHOLOGY YES; Platelet Count 97 K/mm3 (150-450); RBC Distribution Width CV 13.9 % (11.6-14.6); RBC Distribution Width SD 45.6 fl (35.1-43.9); Red Blood Count 3.85 M/mm3 (4.6-6.2); White Blood Count 2.3 K/mm3 (4.4-11.0)
[2021-04-15 04:29] LABS: Differential Indicated SCAN CRITERIA MET
[2021-04-15 04:36] LABS: ALB/GLOB Ratio 0.3 RATIO (0.9-2.4); AST(SGOT) 55 U/L (15-37); Alanine Aminotransfer ALT/SGPT 194 U/L (16-61); Albumin, Serum 1.5 g/dL (3.2-5.0); Alkaline Phosphatase 58 U/L (45-117); Anion Gap 7 (5-15); BUN 35 mg/dL (7-18); BUN/Creat Ratio 29.9 RATIO (10-20); Calcium,Total 8.9 mg/dL (8.5-10.1); Chloride 100 mmol/L (98-107); Creatinine, Serum 1.17 mg/dL (0.70-1.30); EST Glomerular Filtration Rate 65 mL/min (>60); Est Glom Filt Rate - Afr Amer 78 mL/min (>60); Estimated Creatinine Clearance 61.72 ml/min; Globulin 4.3 g/dL (2.2-4.2); Glucose 154 mg/dL (74-106); Protein, Total 5.8 g/dL (6.4-8.2); Sodium Level 137 mmol/L (136-145)
--- NOTE | 2021-04-15 06:11 | PN.CC_ITS ---
Assessment & Plan Assessment/Plan (1) Pneumonia due to COVID-19 virus: (2) Acute respiratory failure with hypoxia: PLAN: RECOMMENDATIONS: 1. Continue BiPAP support and wean FiO2 to maintain saturations at or above 90%. 2. Obtain repeat chest x-ray this morning. 3. Continue remdesivir, Decadron and Lovenox as ordered. Continue to monitor liver and renal function. 4. Reattempt diuretic challenge today. 5. Patient to be n.p.o. for now. 6. Start empiric antimicrobials. IMPRESSIONS: 1. Acute hypoxic respiratory failure secondary to COVID-19 pneumonia The patient has had rapid worsening in his oxygenation status. He is currently requiring BiPAP support with an FiO2 requirement of 100% with marginal oxygen saturations. The patient remains on appropriate therapy with remdesivir, Decadron and Lovenox. Is unclear if the patient has an element of underlying COPD. The patient is agreeable to intubation if needed. Will obtain repeat chest x-ray today. Reattempt diuretic challenge. Start empiric antimicrobials. Continue vitamin C and zinc as ordered. 2. Suspected CHF/A. fib Continue current medical management. The patient appears to be in rate controlled atrial fibrillation. As noted above, will attempt diuretic challenge today. The patient is on DVT prophylaxis with Lovenox, but may be at increased risk for full dose therapeutic anticoagulation given his brain mass. 3. Recent diagnosis of brain mass/advanced age/hypertension/history of prostate cancer/unvaccinated status Complicates care, management, recovery and prognosis. Continue medical managem ent as noted above. The patient is at high risk for the need for intubation in the next 24 hours. TIME: 35 minutes of critical care time, independent of procedures, was spent addressing the patient's acute hypoxemic respiratory failure secondary to COVID- 19 pneumonia, atrial fibrillation, review of all data and collaboration with care team. ([id number]) Subjective Subjective The patient was seen and examined at the bedside this morning. Events from the last 24 hours have been reviewed. The patient is currently afebrile hemodynamically stable. The patient has had issues with atrial fibrillation overnight but remains rate controlled at the current time. He is hemodynamically stable. However, his oxygenation status has worsened. The patient is now requiring 100% FiO2 on BiPAP with marginal oxygen saturations. He is currently documented to be 1 L negative for the hospitalization. The patient remains on remdesivir, Decadron, and prophylactic Lovenox. Objective Data Objective Data The patient's most recent lab work, culture data and imaging studies have all been personally reviewed. Rapid coronavirus antigen testing was positive on April 13. Strep and urine Legionella antigens were negative. Respiratory viral panel was negative. Vital Signs: Vital Signs Temp Pulse Resp BP Pulse Ox 97.9 F 89 25 H 126/66 H 85 04/15/21 04:00 04/15/21 06:00 04/15/21 06:00 04/15/21 06:00 04/15/21 06:00 Oxygen Flow Rate (L/min) 60 Oxygen Delivery Method Bi-pap Weight: 80.3 kg Body Mass Index (BMI) 24.0 Intake & Output: Intake and Output for Last 24 Hours 04/13/21 04/14/21 04/15/21 23:59 23:59 23:59 Intake Total 310.75 / 385.75 325 / 325 Output Total 1200 / 1350 450 / 450 Balance -889.25 / -964.25 -125 / -125 Lab / Micro Data Attestation: I reviewed the patient's lab results. Result Diagrams: 04/15/21 04:07 04/15/21 04:07 Labs: Laboratory Results - last 24 hr 04/14/21 06:53: WBC 3.1 L, RBC 4.05 L, Hgb 12.4 L, Hct 35.9 L, MCV 88.6, MCH 30.6, MCHC 34.5, RDW Std Deviation 44.4 H, RDW Coeff of Mei 13.5, Plt Count 95 L , MPV 8.8, Immature Gran % (Auto) 1.000 H, Neut % (Auto) 93.1 H, Lymph % (Auto) 3.6 L, [place] % (Auto) 2.0, Eos % (Auto) 0.0, Baso % (Auto) 0.3, Absolute Neuts (auto) 2.8, Absolute Lymphs (auto) 0.11 L, Nucleated RBC % 0, Differential Comment SCANNED, Diff Path Review November04/14/21 06:53: Sodium 135 L, Potassium 3.9, Chloride 98, Carbon Dioxide 30.0, Anion Gap 7, BUN 28 H, Creatinine 0.97, Estim Creat Clear Calc 74.44, Est GFR (MDRD) Af Amer 98, Est GFR (MDRD) Non-Af 81, BUN/Creatinine Ratio 29.0 H, Glucose 131 H, Calcium 8.7, Total Bilirubin 0.70, AST 78 H, ALT 227 H, Alkaline Phosphatase 63, Total Protein 5.6 L, Albumin 1.6 L, Globulin 4.0, Albumin/Globulin Ratio 0.4 L 04/15/21 04:07: WBC 2.3 L, RBC 3.85 L, Hgb 11.8 L, Hct 34.5 L, MCV 89.6, MCH 30.6, MCHC 34.2, RDW Std Deviation 45.6 H, RDW Coeff of Mei 13.9, Plt Count 97 L , MPV 9.4, Immature Gran % (Auto) 0.900, Neut % (Auto) 93.4 H, Lymph % (Auto) 3.5 L, [place] % (Auto) 1.8, Eos % (Auto) 0.0, Baso % (Auto) 0.4, Absolute Neuts (auto) 2.1, Absolute Lymphs (auto) 0.08 L, Nucleated RBC % 0 04/15/21 04:07: Sodium 137, Potassium 4.0, Chloride 100, Carbon Dioxide 30.0, Anion Gap 7, BUN 35 H, Creatinine 1.17, Estim Creat Clear Calc 61.72, Est GFR (MDRD) Af Amer 78, Est GFR (MDRD) Non-Af 65, BUN/Creatinine Ratio 29.9 H, Glucose 154 H, Calcium 8.9, Total Bilirubin 0.80, AST 55 H, ALT 194 H, Alkaline Phosphatase 58, Total Protein 5.8 L, Albumin 1.5 L, Globulin 4.3 H, Albumin/Globulin Ratio 0.3 L Micro: Microbiology 04/14/21 00:00 Urine, Clean Catch Legionella Antigen - Final 04/14/21 00:00 Urine, Clean Catch Streptococcus pneumoniae Antigen (M - Final 04/13/21 19:28 Mucosa - Nasopharyngeal Respiratory Panel (PCR) - Final 04/13/21 16:18 Nasal Secretion SARS-CoV-2 Antigen (Rapid) - Final SARS-CoV-2 (COVID 19) Physical Exam Const alert General Appearance: cooperative, ill appearing and on BiPAP HEENT normocephalic and head/scalp atraumatic Eyes PERRL and EOMs intact bilaterally Neck supple General: trachea midline Chest inspection of chest normal Resp Effort and Inspection: tachypneic Auscultation: diminished lung sounds; Negative for rales, rhonchi or wheezes Cardio S1 normal heart sound and S2 normal heart sound Cardio Narrative: IRIR Rate: tachycardic GI normal to inspection, nondistended, normoactive bowel sounds Extremity no clubbing, cyanosis or edema Skin no rashes or lesions noted Neuro moves all extremities and no focal motor deficits Psych cooperative and affect normal Charges/Coding Procedures Hospitalists Procedures: [id number] Critial Care 1st Hr
--- NOTE | 2021-04-15 06:26 | RAD_ITS ---
STUDY: X-RAY CHEST REASON FOR EXAM: Male, 75 years old. Respiratory Failure TECHNIQUE: Portable, upright, AP chest radiograph COMPARISON: 04/13/2021 FINDINGS: Left more than right pulmonary opacities are mildly increased compared to 04/13/2021. There is no demonstrated pleural abnormality. There is borderline cardiomegaly. Normal mediastinum and liane. Normal visualized pulmonary arteries. There is atherosclerotic calcification of the aortic arch with tortuosity. Normal visualized thoracic spine. Normal visualized ribs, clavicles, and shoulders. There is no demonstrated abnormality of the visualized soft tissue structures of the upper abdomen. RAD/Chest 1 View (Portable) IMPRESSION: Mild increase in bilateral pulmonary infiltrates. Electronically Signed: Blayne Bal MD at 7:12 EDT Tel , Service support ,
[2021-04-15 06:39] LABS: Differential Comment SCANNED
[2021-04-15 06:40] LABS: Platelet Estimate SLT DEC (ADEQ)
[2021-04-15] MEDS: Ipratropium/Albuterol Sulfate 3 ML AMPUL.NEB INHALATION ×4 (07:10→18:47)
[2021-04-15] MEDS: Furosemide 40 MG/4 ML Vial IV (08:07)
[2021-04-15] MEDS: CHLORHEXIDINE GLUC 2% CLOTH 1 EACH TOWELETTE TOPICAL (08:13)
[2021-04-15] MEDS: 0.9% Saline Lock 10 ML Syringe IV (08:19)
--- NOTE | 2021-04-15 09:32 | PN.HOSP_ITS ---
Subjective Subjective Has had worsening his oxygen status, he is now maintaining his oxygen sats in the mid to low 90s while requiring 100% FiO2 on BiPAP. Had an episode of A. fib overnight which is now rate controlled Objective Data Objective Data Vital Signs: Vital Signs Temp Pulse Resp BP Pulse Ox 97.7 F L 85 25 H 126/71 H 95 04/15/21 08:00 04/15/21 08:00 04/15/21 08:00 04/15/21 08:00 04/15/21 08:00 Oxygen Flow Rate (L/min) 60 Oxygen Delivery Method Bi-pap Weight: 173 lb 1.006 oz Body Mass Index (BMI) 24.0 Intake & Output: Intake and Output for Last 24 Hours 04/14/21 04/15/21 04/16/21 03:59 03:59 03:59 Intake Total 250 / 250 385.75 / 385.75 50 / 50 Output Total 175 / 175 1475 / 1475 Balance 75 / 75 -1089.25 / -1089.25 50 / 50 Lab / Micro Data Result Diagrams: 04/15/21 04:07 04/15/21 04:07 Labs: Laboratory Results - last 24 hr 04/14/21 06:53: Differential Comment SCANNED, Diff Path Review November diallo 04/15/21 04:07: WBC 2.3 L, RBC 3.85 L, Hgb 11.8 L, Hct 34.5 L, MCV 89.6, MCH 30.6, MCHC 34.2, RDW Std Deviation 45.6 H, RDW Coeff of Mei 13.9, Plt Count 97 L , MPV 9.4, Immature Gran % (Auto) 0.900, Neut % (Auto) 93.4 H, Lymph % (Auto) 3.5 L, [place] % (Auto) 1.8, Eos % (Auto) 0.0, Baso % (Auto) 0.4, Absolute Neuts (auto) 2.1, Absolute Lymphs (auto) 0.08 L, Nucleated RBC % 0, Differential Comment SCANNED, Diff Path Review November diallo, Platelet Estimate SLT 04/15/21 04:07: Sodium 137, Potassium 4.0, Chloride 100, Carbon Dioxide 30.0, Anion Gap 7, BUN 35 H, Creatinine 1.17, Estim Creat Clear Calc 61.72, Est GFR (MDRD) Af Amer 78, Est GFR (MDRD) Non-Af 65, BUN/Creatinine Ratio 29.9 H, Glu cose 154 H, Calcium 8.9, Total Bilirubin 0.80, AST 55 H, ALT 194 H, Alkaline Phosphatase 58, Total Protein 5.8 L, Albumin 1.5 L, Globulin 4.3 H, Albumin/Globulin Ratio 0.3 L Micro: Microbiology 04/14/21 00:00 Urine, Clean Catch Legionella Antigen - Final 04/14/21 00:00 Urine, Clean Catch Streptococcus pneumoniae Antigen (M - Final 04/13/21 19:28 Mucosa - Nasopharyngeal Respiratory Panel (PCR) - Final 04/13/21 16:18 Nasal Secretion SARS-CoV-2 Antigen (Rapid) - Final SARS-CoV-2 (COVID 19) Radiography Diagnostic Testing: Radiology Impression Chest X-Ray 04/15/21 06:26 IMPRESSION: Mild increase in bilateral pulmonary infiltrates. Electronically Signed: Blayne Bal MD at 7:12 EDT Tel , Service support , Physical Exam Const alert and oriented x3 General Appearance: cooperative HEENT normocephalic and moist oral mucous membranes Eyes PERRL, EOMs intact bilaterally and conjunctivae normal Neck supple and no JVD Resp normal respiratory effort, no retractions and no use of accessory muscles Effort and Inspection: tachypneic Auscultation: diminished lung sounds; Negative for crackles, rales, rhonchi or wheezes Cardio regular rate, regular rhythm, S1 normal heart sound, S2 normal heart sound and no murmurs GI soft to palpation, non-tender and non-distended; Negative for hepatosplenomegaly Extremity no clubbing, cyanosis or edema Skin no rashes or lesions noted Neuro no focal motor deficits and no sensory deficits noted Psych affect normal Appearance: appropriate Assessment & Plan Assessment/Plan (1) Pneumonia due to COVID-19 virus: (2) Acute respiratory failure with hypoxia: PLAN: 1. Acute hypoxic respiratory failure secondary to COVID-19 pneumonia -Symptoms started 7 days ago and he is on Decadron and remdesivir -Unvaccinated -He does have a brain mass that was recently diagnosed in March at [facility] he has not had a work-up for this -Transition to wanting to be intubated after 20-minute discussion on advance care planning therefore he was transferred to the ICU started on BiPAP -Discussed the case with ID unfortunately given his lymphopenia he does not meet criteria for baricitinib treatment, will continue to monitor if he does enter into range for treatment then hopefully can initiate -Consult respiratory support technician 2. HTN/A. fib -Continue with his home blood pressure medications -Continue with amiodarone -Not on any anticoagulation 3. Brain mass -Found recently at [facility] -Has not had a work-up DVT: Oumar Charges/Coding Visit Charges Inpatient E&M: [id number] Subs Hosp L2
[2021-04-15] MEDS: Amiodarone 200 MG Tablet PO (10:48)
[2021-04-15] MEDS: dexAMETHasone 10 MG/ML Vial 6 MG IV (10:48)
[2021-04-15] MEDS: Enoxaparin 30 MG/0.3 ML Syringe SC ×2 (10:48→19:51)
[2021-04-15] MEDS: Ascorbic Acid 500 MG Tablet 1000 MG PO (15:42)
[2021-04-15] MEDS: Potassium Chloride Oral Tablet 10 MEQ PO (19:47)
[2021-04-15] MEDS: Metoprolol Tartrate 25 MG Tablet PO (19:48)
[2021-04-16] VITALS (44 sets, daily range): BP systolic 90–133; BP diastolic 47–92; PULSE 64–134; RESP 14–34; TEMP 36–36.5; O2SAT 84–98
[2021-04-16 05:16] LABS: Absolute Neutrophil Count 3.3 X10^3/uL (2.0-7.7); Basophil# 0.01 X10^3/uL; Basophil% 0.3 % (0-1); Hematocrit 32.3 % (40-54); Hemoglobin 11.4 g/dL (13.0-16.5); Lymphocyte % 2.8 % (19-41); Mean Corp Hgb Conc 35.3 g/dL (32-36); Mean Corpuscular Hgb 31.2 pg (27.0-32.0); Mean Corpuscular Volume 88.5 fL (80-94); Mean Platelet Vol. 9.2 fl (6.2-12.0); Monocyte# 0.09 X10^3/uL; Monocyte% 2.5 % (0-10); NRBC Flagged by Analyzer 0 % (0-5); Neutrophil # 3.32 X10^3/uL (2.7-7.7); Neutrophil % 93.8 % (47-70); POSITIVE DIFFERENTIAL YES; POSITIVE MORPHOLOGY YES; Platelet Count 107 K/mm3 (150-450); RBC Distribution Width CV 14.1 % (11.6-14.6); RBC Distribution Width SD 45.7 fl (35.1-43.9); Red Blood Count 3.65 M/mm3 (4.6-6.2); White Blood Count 3.5 K/mm3 (4.4-11.0)
[2021-04-16 05:22] LABS: Differential Indicated SCAN CRITERIA MET
[2021-04-16 05:42] LABS: ALB/GLOB Ratio 0.3 RATIO (0.9-2.4); AST(SGOT) 36 U/L (15-37); Alanine Aminotransfer ALT/SGPT 134 U/L (16-61); Albumin, Serum 1.3 g/dL (3.2-5.0); Alkaline Phosphatase 58 U/L (45-117); Anion Gap 9 (5-15); BUN 46 mg/dL (7-18); BUN/Creat Ratio 47.7 RATIO (10-20); Calcium,Total 8.7 mg/dL (8.5-10.1); Chloride 101 mmol/L (98-107); Creatinine, Serum 0.96 mg/dL (0.70-1.30); EST Glomerular Filtration Rate 81 mL/min (>60); Est Glom Filt Rate - Afr Amer 98 mL/min (>60); Estimated Creatinine Clearance 75.22 ml/min; Globulin 4.3 g/dL (2.2-4.2); Glucose 130 mg/dL (74-106); Potassium 3.3 mmol/L (3.5-5.1); Protein, Total 5.6 g/dL (6.4-8.2); Sodium Level 139 mmol/L (136-145)
--- NOTE | 2021-04-16 05:43 | PN.CC_ITS ---
Assessment & Plan Assessment/Plan (1) Pneumonia due to COVID-19 virus: (2) Acute respiratory failure with hypoxia: PLAN: RECOMMENDATIONS: 1. Continue BiPAP support and wean FiO2 to maintain saturations at or above 90%. 2. The patient was encouraged to place himself in prone position. 3. Continue remdesivir, Decadron and Lovenox as ordered. Continue to monitor liver and renal function. 4. Reattempt diuretic challenge today. 5. Patient to be n.p.o. for now. 6. Continue empiric antimicrobials. 7. If no improvement in oxygenation status in the next 24 hours, will proceed with intubation. IMPRESSIONS: 1. Acute hypoxic respiratory failure secondary to COVID-19 pneumonia The patient has had rapid worsening in his oxygenation status. He is currently requiring BiPAP support with an FiO2 requirement of 90% with marginal oxygen saturations. The patient remains on appropriate therapy with remdesivir, Decadron and Lovenox. The patient may have an underlying component of obstructive lung disease as well. The patient is agreeable to intubation if needed. Reattempt diuretic challenge. Continue empiric antimicrobials. Cont inue vitamin C and zinc as ordered. The patient was encouraged to place himself in prone position today. 2. Suspected CHF/A. fib Continue current medical management. The patient appears to be in rate controlled atrial fibrillation. As noted above, will attempt diuretic challenge today. The patient is on DVT prophylaxis with Lovenox, but may be at increased risk for full dose therapeutic anticoagulation given his brain mass. 3. Hypokalemia Electrolyte repletion as ordered. Recheck levels in the morning. 4. Recent diagnosis of brain mass/advanced age/hypertension/history of prostate cancer/unvaccinated status Complicates care, management, recovery and prognosis. Continue medical management as noted above. The patient is at high risk for the need for intubation in the next 24 hours. TIME: 33 minutes of critical care time, independent of procedures, was spent addressing the patient's acute hypoxemic respiratory failure secondary to COVID- 19 pneumonia, atrial fibrillation, review of all data and collaboration with care team. ([id number]) Subjective Subjective The patient was seen and examined at the bedside this morning. Events from the last 24 hours have been reviewed. The patient is currently afebrile hemodynamically stable. The patient continues to go in and out of atrial fibrillation. The patient continues to require BiPAP support with an FiO2 of 90%. The patient is currently documented to be overall net -2.1 L for the hospital admission. The patient remains on remdesivir, Decadron, and prophylactic Lovenox. In addition, the patient remains on empiric antimicrobials. Potassium is low this morning at 3.3. Creatinine is stable. The patient reports little overall change in his respiratory status since yesterday. Attempt was made to remove the patient from BiPAP and transition him to heated high flow this morning. However, the patient did not tolerate the change very well. He readily desaturated upon removal from BiPAP. Objective Data Objective Data The patient's most recent lab work, culture data and imaging studies have all been personally reviewed. Rapid coronavirus antigen testing was positive on April 13. Strep and urine Legionella antigens were negative. Respiratory viral panel was negative. Vital Signs: Vital Signs Temp Pulse Resp BP Pulse Ox 97.3 F L 66 22 H 121/58 H 91 04/16/21 00:00 04/16/21 05:15 04/16/21 05:15 04/16/21 05:00 04/16/21 05:15 Oxygen Flow Rate (L/min) 60 Oxygen Delivery Method Bi-pap Weight: 78.8 kg Body Mass Index (BMI) 24.0 Intake & Output: Intake and Output for Last 24 Hours 04/14/21 04/15/21 04/16/21 23:59 23:59 23:59 Intake Total 310.75 / 385.75 1143.50 / 1293.50 200 / 200 Output Total 1200 / 1350 1900 / 2200 300 / 300 Balance -889.25 / -964.25 -756.50 / -906.50 -100 / -100 Lab / Micro Data Attestation: I reviewed the patient's lab results. Result Diagrams: 04/16/21 04:55 04/16/21 04:55 Labs: Laboratory Results - last 24 hr 04/15/21 04:07: Differential Comment SCANNED, Diff Path Review November diallo, Platelet Estimate SLT 04/16/21 04:55: WBC 3.5 L, RBC 3.65 L, Hgb 11.4 L, Hct 32.3 L, MCV 88.5, MCH 31.2, MCHC 35.3, RDW Std Deviation 45.7 H, RDW Coeff of Mei 14.1, Plt Count 107 L, MPV 9.2, Immature Gran % (Auto) 0.600, Neut % (Auto) 93.8 H, Lymph % (Auto) 2.8 L, [place] % (Auto) 2.5, Eos % (Auto) 0.0, Baso % (Auto) 0.3, Absolute Neuts (auto) 3.3, Absolute Lymphs (auto) 0.10 L, Nucleated RBC % 0, Diff Path Review November04/16/21 04:55: Sodium 139, Potassium 3.3 L, Chloride 101, Carbon Dioxide 29.0, Anion Gap 9, BUN 46 H, Creatinine 0.96, Estim Creat Clear Calc 75.22, Est GFR (MDRD) Af Amer 98, Est GFR (MDRD) Non-Af 81, BUN/Creatinine Ratio 47.7 H, Glucose 130 H, Calcium 8.7, Total Bilirubin 0.60, AST 36, ALT 134 H, Alkaline Phosphatase 58, Total Protein 5.6 L, Albumin 1.3 L, Globulin 4.3 H, Albumin/Globulin Ratio 0.3 L Micro: Microbiology 04/14/21 00:00 Urine, Clean Catch Legionella Antigen - Final 04/14/21 00:00 Urine, Clean Catch Streptococcus pneumoniae Antigen (M - Final 04/13/21 19:28 Mucosa - Nasopharyngeal Respiratory Panel (PCR) - Final 04/13/21 16:18 Nasal Secretion SARS-CoV-2 Antigen (Rapid) - Final SARS-CoV-2 (COVID 19) Radiography Diagnostic Testing: Radiology Impression Chest X-Ray 04/15/21 06:26 IMPRESSION: Mild increase in bilateral pulmonary infiltrates. Electronically Signed: Blayne Bal MD at 7:12 EDT Tel , Service support , Physical Exam Const alert General Appearance: cooperative, ill appearing and on BiPAP HEENT normocephalic and head/scalp atraumatic Eyes PERRL and EOMs intact bilaterally Neck supple General: trachea midline Chest inspection of chest normal Resp Effort and Inspection: tachypneic Auscultation: diminished lung sounds; Negative for rales, rhonchi or wheezes Cardio S1 normal heart sound and S2 normal heart sound Cardio Narrative: IRIR Rate: tachycardic GI normal to inspection, nondistended, normoactive bowel sounds Extremity no clubbing, cyanosis or edema Skin no rashes or lesions noted Neuro moves all extremities and no focal motor deficits Psych cooperative and affect normal Charges/Coding Procedures Hospitalists Procedures: 84772 Critial Care 1st Hr
[2021-04-16] MEDS: Ipratropium/Albuterol Sulfate 3 ML AMPUL.NEB INHALATION ×3 (06:51→19:12)
[2021-04-16] MEDS: Potassium Chloride 10mEq/100mL 10 MEQ/100 ML IV.SOLN. 100 MEQ IV BOLUS ×4 (08:03→11:23)
[2021-04-16] MEDS: Ascorbic Acid 500 MG Tablet 1000 MG PO ×2 (08:31→14:16)
[2021-04-16] MEDS: Amiodarone 200 MG Tablet PO (08:31)
[2021-04-16] MEDS: dexAMETHasone 10 MG/ML Vial 6 MG IV (08:31)
[2021-04-16] MEDS: CHLORHEXIDINE GLUC 2% CLOTH 1 EACH TOWELETTE TOPICAL (08:32)
[2021-04-16] MEDS: Enoxaparin 30 MG/0.3 ML Syringe SC ×2 (08:32→20:10)
[2021-04-16] MEDS: Furosemide 40 MG/4 ML Vial IV (08:32)
[2021-04-16] MEDS: 0.9% Saline Lock 10 ML Syringe IV (08:39)
--- NOTE | 2021-04-16 10:34 | CASEMGMT ---
Addendum entered by Em Cowart 04/16/21 10:52: Pt's called back, SW offered support. SW remains available for support to family as needed. ISABEL Piña Original Note: SW participated in ICU rounds. SW called , message left to offer support. SW will continue to follow. MIKE PiñaS
--- NOTE | 2021-04-16 10:37 | PN.HOSP_ITS ---
Subjective Subjective Patient seen and examined. He was proned today and switched to Airvo. HE had no active complaints and felt his breathing was getting better. Review of systems was otherwise negative. Objective Data Objective Data Vital Signs: Vital Signs Temp Pulse Resp BP Pulse Ox 97.4 F L 96 24 H 99/51 L 94 04/16/21 08:00 04/16/21 09:20 04/16/21 09:20 04/16/21 09:00 04/16/21 09:20 Oxygen Flow Rate (L/min) 60 Oxygen Delivery Method Airvo Weight: 173 lb 11.588 oz Body Mass Index (BMI) 24.0 Intake & Output: Intake and Output for Last 24 Hours 04/14/21 04/15/21 04/16/21 23:59 23:59 23:59 Intake Total 310.75 / 385.75 1143.50 / 1293.50 671.5 / 671.5 Output Total 1200 / 1350 1900 / 2200 1150 / 1150 Balance -889.25 / -964.25 -756.50 / -906.50 -478.5 / -478.5 Lab / Micro Data Result Diagrams: 04/16/21 04:55 04/16/21 04:55 Labs: Laboratory Results - last 24 hr 04/16/21 04:55: WBC 3.5 L, RBC 3.65 L, Hgb 11.4 L, Hct 32.3 L, MCV 88.5, MCH 31.2, MCHC 35.3, RDW Std Deviation 45.7 H, RDW Coeff of Mei 14.1, Plt Count 107 L, MPV 9.2, Immature Gran % (Auto) 0.600, Neut % (Auto) 93.8 H, Lymph % (Auto) 2.8 L, [place] % (Auto) 2.5, Eos % (Auto) 0.0, Baso % (Auto) 0.3, Absolute Neuts (auto) 3.3, Absolute Lymphs (auto) 0.10 L, Nucleated RBC % 0, Diff Path Review November04/16/21 04:55: Sodium 139, Potassium 3.3 L, Chloride 101, Carbon Dioxide 29.0, Anion Gap 9, BUN 46 H, Creatinine 0.96, Estim Creat Clear Calc 75.22, Est GFR (MDRD) Af Amer 98, Est GFR (MDRD) Non-Af 81, BUN/Creatinine Ratio 47.7 H, G lucose 130 H, Calcium 8.7, Total Bilirubin 0.60, AST 36, ALT 134 H, Alkaline Phosphatase 58, Total Protein 5.6 L, Albumin 1.3 L, Globulin 4.3 H, Albumin/Globulin Ratio 0.3 L Micro: Microbiology 04/14/21 00:00 Urine, Clean Catch Legionella Antigen - Final 04/14/21 00:00 Urine, Clean Catch Streptococcus pneumoniae Antigen (M - Final 04/13/21 19:28 Mucosa - Nasopharyngeal Respiratory Panel (PCR) - Final 04/13/21 16:18 Nasal Secretion SARS-CoV-2 Antigen (Rapid) - Final SARS-CoV-2 (COVID 19) Physical Exam Const alert, oriented x3 and no apparent distress Exam Limitations: no limitations HEENT head/scalp atraumatic and moist oral mucous membranes Head and Scalp: normocephalic Eyes PERRL, EOMs intact bilaterally and conjunctivae normal Neck no lymphadenopathy Resp Resp Narrative: diminished breath sounds posteriorly, bibasally. No wheezes or crackles. On Airvo. Proned. Cardio regular rate, regular rhythm, S1 normal heart sound, S2 normal heart sound and no murmurs GI normal to inspection, nondistended, normoactive bowel sounds, soft to palpation, non-tender and non-distended Extremity normal to inspection, full ROM and no clubbing, cyanosis or edema Peripheral Pulses: Yes pulses 2+ throughout Skin no rashes or lesions noted Neuro oriented x3, CN's II-XII intact bilaterally and moves all extremities Sensorium / Orientation: awake and alert Psych affect normal Assessment & Plan Assessment/Plan (1) Acute respiratory failure with hypoxia: PLAN: #Acute hypoxic respiratory failure due to COVID 19 pneumonia * patient now on AirVO. Currently proned. * critical care on board * titrate oxygen to maintain sats >90% * breathing treatment with bronchodilators. * on IV zosyn, remdesivir and decacron * on diuretic challenge with lasix. * also on vitamin C and zinc * # COVID 19 pneumonia: as above #Thromobocytopenia * Platelets are 107 today. Was 119 on admission. Will monitor closely. #Afib: * on amiodarone. * not on full dose anticoagulation; may be at increased risk for brain bleed with full dose anticoagulation due to his brain mass. #Hypertension: on metoprolol and losartan. #Brain mass * recently diagnosed with a brain mass at [facility] which he elected not to have worked up there. 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
[2021-04-16] MEDS: Metoprolol Tartrate 25 MG Tablet PO ×2 (14:16→20:10)
[2021-04-16 14:52] LABS: Pathologist Review Reviewed
[2021-04-16 14:58] LABS: Pathologist Review Reviewed
[2021-04-16 15:03] LABS: Pathologist Review Reviewed
--- NOTE | 2021-04-16 17:22 | NURSING ---
Primofit had come off. there is some urine noted on the sheet under patient in the chair. sheets changed and a new Primofit applied. Pt tolerated well.
[2021-04-16] MEDS: Potassium Chloride Oral Tablet 10 MEQ PO (20:09)
[2021-04-16] MEDS: Acetaminophen 325 MG Tablet 650 MG PO (20:10)
[2021-04-17] VITALS (48 sets, daily range): BP systolic 76–128; BP diastolic 46–80; PULSE 70–95; RESP 12–27; TEMP 35.9–36.6; O2SAT 90–99
[2021-04-17 03:37] LABS: Absolute Lymphocyte Count 0.12 X10^3/uL (0.83-4.51); Absolute Neutrophil Count 4.4 X10^3/uL (2.0-7.7); Basophil# 0.03 X10^3/uL; Basophil% 0.6 % (0-1); Hematocrit 36.8 % (40-54); Hemoglobin 12.6 g/dL (13.0-16.5); Lymphocyte # 0.12 X10^3/ul (0.83-4.51); Lymphocyte % 2.5 % (19-41); Mean Corp Hgb Conc 34.2 g/dL (32-36); Mean Corpuscular Hgb 30.3 pg (27.0-32.0); Mean Corpuscular Volume 88.5 fL (80-94); Mean Platelet Vol. 9.7 fl (6.2-12.0); Monocyte% 2.1 % (0-10); NRBC Flagged by Analyzer 0 % (0-5); Neutrophil % 93.5 % (47-70); POSITIVE DIFFERENTIAL YES; POSITIVE MORPHOLOGY YES; Platelet Count 118 K/mm3 (150-450); RBC Distribution Width CV 14.3 % (11.6-14.6); RBC Distribution Width SD 45.9 fl (35.1-43.9); Red Blood Count 4.16 M/mm3 (4.6-6.2); White Blood Count 4.7 K/mm3 (4.4-11.0)
[2021-04-17 03:43] LABS: Differential Indicated SCAN CRITERIA MET
[2021-04-17] MEDS: CHLORHEXIDINE GLUC 2% CLOTH 1 EACH TOWELETTE TOPICAL (04:20)
[2021-04-17 04:23] LABS: ALB/GLOB Ratio 0.3 RATIO (0.9-2.4); AST(SGOT) 34 U/L (15-37); Alanine Aminotransfer ALT/SGPT 118 U/L (16-61); Albumin, Serum 1.3 g/dL (3.2-5.0); Alkaline Phosphatase 68 U/L (45-117); Anion Gap 7 (5-15); BUN 55 mg/dL (7-18); Calcium,Total 8.9 mg/dL (8.5-10.1); Chloride 102 mmol/L (98-107); EST Glomerular Filtration Rate 70 mL/min (>60); Est Glom Filt Rate - Afr Amer 84 mL/min (>60); Estimated Creatinine Clearance 65.65 ml/min; Glucose 159 mg/dL (74-106); Potassium 3.4 mmol/L (3.5-5.1); Protein, Total 6.3 g/dL (6.4-8.2); Sodium Level 138 mmol/L (136-145)
[2021-04-17 04:38] LABS: Differential Comment SCANNED
[2021-04-17] MEDS: Potassium Chloride 10mEq/100mL 10 MEQ/100 ML IV.SOLN. 100 MEQ IV BOLUS ×4 (05:34→09:42)
--- NOTE | 2021-04-17 05:42 | PCM.PN.INT ---
Assessment & Plan Assessment/Plan (1) Pneumonia due to COVID-19 virus: (2) Acute respiratory failure with hypoxia: PLAN: RECOMMENDATIONS: 1. Proceed with intubation given lack of overall clinical improvement. 2. Obtain arterial blood gas in 1 hour. 3. Obtain and send sputum for culture. 4. Continue remdesivir, Decadron and Lovenox as ordered. 5. Administer IV Lasix once again. 6. Okay to start tube feeds today from my perspective. 7. Continue empiric antimicrobials. 8. Start appropriate GI prophylaxis. 9. Infectious diseases consultation, re: possible TAMARA inhibitor therapy. IMPRESSIONS: 1. Acute hypoxic respiratory failure secondary to COVID-19 pneumonia The patient has had rapid worsening in his oxygenation status. The patient has essentially been BiPAP dependent for 3 straight days without any meaningful clinical improvement. Therefore, the decision was made to proceed with intubation on the morning of April 17. We will plan to continue supportive measures and wean FiO2 to maintain oxygen saturations at or above 90%. The patient will be continued on remdesivir, Decadron and Lovenox. The patient may have an underlying component of obstructive lung disease as well. Reattempt diuretic challenge. Continue empiric antimicrobials. Continue vitamin C and zinc as ordered. 2. Suspected CHF/A. fib Continue current medical management. The patient appears to be in rate controlled atrial fibrillation. As noted above, will attempt diuretic challenge today. The patient is on DVT prophylaxis with Lovenox, but may be at increased risk for full dose therapeutic anticoagulation given his brain mass. 3. Hypokalemia Electrolyte repletion as ordered. Recheck levels in the morning. 4. Recent diagnosis of brain mass/advanced age/hypertension/history of prostate cancer/unvaccinated status Complicates care, management, recovery and prognosis. Continue medical management as noted above. Okay to start tube feeds today from my perspective. TIME: 42 minutes of critical care time, inclusive of procedures, was spent addressing the patient's acute hypoxemic respiratory failure secondary to COVID-19 pneumonia, atrial fibrillation, review of all data and collaboration with care team. ([id number]) Subjective Subjective The patient was seen and examined at the bedside this morning. Events from the last 24 hours have been reviewed. The patient is currently afebrile hemodynamically stable. The patient continues to require BiPAP support with an FiO2 of 90%. The patient is currently documented to be overall net -2.1 L for the hospital admission. The patient remains on remdesivir, Decadron, and prophylactic Lovenox. In addition, the patient remains on empiric antimicrobials. Potassium is low this morning at 3.4. Creatinine is stable. Unfortunately, the patient readily desaturates anytime his BiPAP is removed. He has not made any meaningful improvement over the last 48 hours from a respiratory perspective. Given the patient's overall lack of clinical improvement, a very leonid discussion was undertaken with the patient and his via telephone. They have elected to proceed with intubation. Intubation Indication: Respiratory failure Consent was obtained from: Patient The patient was placed in the appropriate sniffing position. Preoxygenated sedation via BiPAP was provided for a minimum of 3 minutes. The patient had continuous cardiac as well as pulse oximetry monitoring during the procedure. Procedure sedation was provided by the administration of 4 mg of Versed, 20 mg of etomidate and 100 mg of succinylcholine. Direct laryngoscopy was then performed using a number 4 MAC blade, which revealed a grade 1 view. A 8.0 mm endotracheal tube was visualized advancing between the cords to the level of 24 cm at the lip. The stylette was then removed and discarded. Tube placement was confirmed by fogging in the tube along with equal and bilateral breath sounds. Colorimetric change was visualized on the CO2 meter. The cuff was then inflated and the tube secured using a commercially available device. A good pulse oximetry waveform was seen on the monitor throughout the procedure. A portable chest x-ray has been ordered to confirm appropriate placement. The patient tolerated the procedure well. Objective Data Objective Data The patient's most recent lab work, culture data and imaging studies have all been personally reviewed. Rapid coronavirus antigen testing was positive on April 13. Strep and urine Legionella antigens were negative. Respiratory viral panel was negative. Vital Signs: Vital Signs Temp Pulse Resp BP Pulse Ox 97.9 F 95 18 120/56 L 92 04/17/21 00:00 04/17/21 04:35 04/17/21 04:35 04/17/21 04:00 04/17/21 04:35 Oxygen Flow Rate (L/min) 90 Oxygen Delivery Method Bi-pap Weight: 75.1 kg Body Mass Index (BMI) 24.0 Intake & Output: Intake and Output for Last 24 Hours 04/15/21 04/16/2121 23:59 23:59 23:59 Intake Total 1143.50 / 1293.50 1338.5 / 1338.5 331 / 331 Output Total 1899 / 0 1899 / 2049 300 / 300 Balance -756.50 / -906.50 -561.5 / -711.5 Lab / Micro Data Attestation: I reviewed the patient's lab results. Result Diagrams: 04/17/21 03:20 04/17/21 03:20 Labs: Laboratory Results - last 24 hr 04/14/21 06:53: Diff Path Review Reviewed 04/15/21 04:07: Diff Path Review Reviewed 04/16/21 04:55: Diff Path Review Reviewed 04/16/21 04:55: Sodium 139, Potassium 3.3 L, Chloride 101, Carbon Dioxide 29.0, Anion Gap 9, BUN 46 H, Creatinine 0.96, Estim Creat Clear Calc 75.22, Est GFR (MDRD) Af Amer 98, Est GFR (MDRD) Non-Af 81, BUN/Creatinine Ratio 47.7 H, Glucose 130 H, Calcium 8.7, Total Bilirubin 0.60, AST 36, ALT 134 H, Alkaline Phosphatase 58, Total Protein 5.6 L, Albumin 1.3 L, Globulin 4.3 H, Albumin/Globulin Ratio 0.3 L 04/17/21 03:20: WBC 4.7, RBC 4.16 L, Hgb 12.6 L, Hct 36.8 L, MCV 88.5, MCH 30.3, MCHC 34.2, RDW Std Deviation 45.9 H, RDW Coeff of Mei 14.3, Plt Count 118 L, MPV 9.7, Immature Gran % (Auto) 1.300 H, Neut % (Auto) 93.5 H, Lymph % (Auto) 2.5 L, [place] % (Auto) 2.1, Eos % (Auto) 0.0, Baso % (Auto) 0.6, Absolute Neuts (auto) 4.4, Absolute Lymphs (auto) 0.12 L, Nucleated RBC % 0, Differential Comment SCANNED 04/17/21 03:20: Sodium 138, Potassium 3.4 L, Chloride 102, Carbon Dioxide 29.0, Anion Gap 7, BUN 55 H, Creatinine 1.10, Estim Creat Clear Calc 65.65, Est GFR (MDRD) Af Amer 84, Est GFR (MDRD) Non-Af 70, BUN/Creatinine Ratio 50.0 H, Glucose 159 H, Calcium 8.9, Total Bilirubin 0.70, AST 34, ALT 118 H, Alkaline Phosphatase 68, Total Protein 6.3 L, Albumin 1.3 L, Globulin 5.0 H, Albumin/Globulin Ratio 0.3 L Micro: Microbiology 04/14/21 00:00 Urine, Clean Catch Legionella Antigen - Final 04/14/21 00:00 Urine, Clean Catch Streptococcus pneumoniae Antigen (M - Final 04/13/21 19:28 Mucosa - Nasopharyngeal Respiratory Panel (PCR) - Final 04/13/21 16:18 Nasal Secretion SARS-CoV-2 Antigen (Rapid) - Final SARS-CoV-2 (COVID 19) Physical Exam Const alert General Appearance: cooperative, ill appearing and on BiPAP HEENT normocephalic and head/scalp atraumatic Eyes PERRL and EOMs intact bilaterally Neck supple General: trachea midline Chest inspection of chest normal Resp Effort and Inspection: tachypneic Auscultation: diminished lung sounds; Negative for rales, rhonchi or wheezes Cardio S1 normal heart sound and S2 normal heart sound Cardio Narrative: IRIR GI normal to inspection, nondistended, normoactive bowel sounds Extremity no clubbing, cyanosis or edema Skin no rashes or lesions noted Neuro moves all extremities and no focal motor deficits Psych cooperative and affect normal Charges/Coding Procedures Hospitalists Procedures: [id number] Critial Care 1st Hr
[2021-04-17] MEDS: Ipratropium/Albuterol Sulfate 3 ML AMPUL.NEB INHALATION ×4 (07:00→20:37)
--- NOTE | 2021-04-17 07:16 | PN.HOSP_ITS ---
Subjective Subjective Patient seen and examined. He was on BIPAP this morning but kept deteriorating respiratory-guerrero so he was intubated this morning. Unable to do review of systems as he is intubated and sedated. He is reported to desaturate rapidly whenever he is off BIPAP. He was proned yesterday. He is in cumulative negative balance by ~2L. Potassium today is 3.4. Objective Data Objective Data Vital Signs: Vital Signs Temp Pulse Resp BP Pulse Ox 97.9 F 91 22 H 94/55 L 91 04/17/21 00:00 04/17/21 07:00 04/17/21 07:00 04/17/21 06:00 04/17/21 07:00 Oxygen Flow Rate (L/min) 90 Oxygen Delivery Method Bi-pap Weight: 165 lb 9.074 oz Body Mass Index (BMI) 24.0 Intake & Output: Intake and Output for Last 24 Hours 04/15/21 04/16/21 04/17/21 23:59 23:59 23:59 Intake Total 1143.50 / 1293.50 1338.5 / 1338.5 431 / 431 Output Total 1900 / 2200 1900 / 2050 300 / 300 Balance -756.50 / -906.50 -561.5 / -711.5 131 / 131 Lab / Micro Data Result Diagrams: 04/17/21 03:20 04/17/21 03:20 Labs: Laboratory Results - last 24 hr 04/14/21 06:53: Diff Path Review Reviewed 04/15/21 04:07: Diff Path Review Reviewed 04/16/21 04:55: Diff Path Review Reviewed 04/17/21 03:20: WBC 4.7, RBC 4.16 L, Hgb 12.6 L, Hct 36.8 L, MCV 88.5, MCH 30.3, MCHC 34.2, RDW Std Deviation 45.9 H, RDW Coeff of Mei 14.3, Plt Count 118 L, MPV 9.7, Immature Gran % (Auto) 1.300 H, Neut % (Auto) 93.5 H, Lymph % (Auto) 2.5 L, [place] % (Auto) 2.1, Eos % (Auto) 0.0, Baso % (Auto) 0.6, Absolute Neuts (auto) 4.4, Absolute Lymphs (auto) 0.12 L, Nucleated RBC % 0, Differential Comment SCANNED 04/17/21 03:20: Sodium 138, Potassium 3.4 L, Chloride 102, Carbon Dioxide 29.0, Anion Gap 7, BUN 55 H, Creatinine 1.10, Estim Creat Clear Calc 65.65, Est GFR (MDRD) Af Amer 84, Est GFR (MDRD) Non-Af 70, BUN/Creatinine Ratio 50.0 H, Glucose 159 H, Calcium 8.9, Total Bilirubin 0.70, AST 34, ALT 118 H, Alkaline Phosphatase 68, Total Protein 6.3 L, Albumin 1.3 L, Globulin 5.0 H, Albumin/Globulin Ratio 0.3 L Micro: Microbiology 04/14/21 00:00 Urine, Clean Catch Legionella Antigen - Final 04/14/21 00:00 Urine, Clean Catch Streptococcus pneumoniae Antigen (M - Final 04/13/21 19:28 Mucosa - Nasopharyngeal Respiratory Panel (PCR) - Final 04/13/21 16:18 Nasal Secretion SARS-CoV-2 Antigen (Rapid) - Final SARS-CoV-2 (COVID 19) Physical Exam Const Constitutional Narrative: intubated, sedated, RASS score is -4 General Appearance: cooperative Exam Limitations: altered mental status HEENT normocephalic, head/scalp atraumatic and moist oral mucous membranes Head and Scalp: normocephalic Eyes PERRL, EOMs intact bilaterally and conjunctivae normal Neck no lymphadenopathy, supple and no JVD Resp Resp Narrative: diminished breath sounds posteriorly, bibasally. No wheezes or crackles. intubated and sedated Effort and Inspection: tachypneic Auscultation: diminished lung sounds Cardio regular rate, regular rhythm, S1 normal heart sound, S2 normal heart sound and no murmurs GI normal to inspection, nondistended, normoactive bowel sounds, soft to palpation, non-tender and non-distended; Negative for hepatosplenomegaly Extremity normal to inspection, full ROM and no clubbing, cyanosis or edema General Extremity: edema; Negative for clubbing or cyanosis Peripheral Pulses: Yes pulses 2+ throughout Skin no rashes or lesions noted Neuro Neuro Narrative: intubated, sedated, RASS score is -4 Psych Psych Narrative: as under neuro Appearance: appropriate Assessment & Plan Assessment/Plan (1) Acute respiratory failure with hypoxia: PLAN: #Acute hypoxic respiratory failure due to COVID 19 pneumonia * emergently intubated this morning o/a of worsening respiratory status. * critical care on board * titrate oxygen to maintain sats >90% * breathing treatment with bronchodilators. * on IV zosyn, remdesivir and decacron * on diuretic challenge with lasix. * also on vitamin C and zinc * # COVID 19 pneumonia: as above #Hypokalemia: K is 3.4 today. Will replace and trend #Thromobocytopenia * Platelets are 118 today; improved from 107 yesterday. Will monitor closely. #Afib: * on amiodarone and metoprolol 25mg bid * not on full dose anticoagulation; may be at increased risk for brain bleed with full dose anticoagulation due to his brain mass. #Hypertension: on metoprolol and losartan. #Brain mass * recently diagnosed with a brain mass at [facility] which he elected not to have worked up there. 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
[2021-04-17 08:40] LABS: CPK Total, Creatine Kinase 86 U/L (39-308); Triglycerides 322 mg/dL
[2021-04-17] MEDS: Midazolam 2 MG/2 ML Syringe 4 MG IV (08:46)
[2021-04-17] MEDS: Etomidate 20 MG/10 ML Vial IV (08:48)
[2021-04-17] MEDS: Propofol 10MG/Ml 1,000 MG/100 ML Bottle 9 MG CONT INF (08:52)
[2021-04-17] MEDS: 0.9% Saline Lock 10 ML Syringe IV (09:00)
--- NOTE | 2021-04-17 09:04 | NURSING ---
Dr. Torres, respiratory therapist, and this RN at bedside 0846- versed 4 mg IV given 0848- etomidate 20 mg IV given 0849- succinycholine 100 mg IV given 0850- #8.0 ETT 24 @ lip positive color change, bilateral breath sounds 0852- propofol started at 20 mcg/kg/min and fentanyl started at 150 mcg/hr per Dr. Torres order 0855- OG placed 0905- CXR confirmed placement
--- NOTE | 2021-04-17 09:08 | RAD_ITS ---
STUDY: X-RAY CHEST REASON FOR EXAM: Male, 75 years old. ETT and OG placement TECHNIQUE: Single AP portable view of the chest. COMPARISON: 04/15/2021 FINDINGS: Interval placement of endotracheal tube the tip approximate centimeters above the erika. Interval placement of nasogastric tube with the tip below the diaphragm. No change in the patchy alveolar opacities in both lungs consistent with bilateral pneumonia. There is no demonstrated pleural abnormality. Normal size heart. Normal mediastinum and liane. Normal visualized pulmonary arteries. Normal visualized aortic arch and descending thoracic aorta. Normal visualized thoracic spine. Normal visualized ribs, clavicles, and shoulders. There is no demonstrated abnormality of the visualized soft tissue structures of the upper abdomen. RAD/Chest 1 View (Portable) IMPRESSION: 1. Interval placement of endotracheal tube with the tip above the erika. 2. Interval placement of nasogastric tube with the tip below the diaphragm. 3. No change in bilateral pneumonia. Electronically Signed: Velasquez Lloyd MD at 9:25 EDT Tel , Service support ,
[2021-04-17 09:35] LABS: Blood Gas Specimen Type VEN; O2 Delivery Device Adult Vent; PEEP 10; RR 14; SITE R Radial; VBG BASE EXCESS 3 mmol/L (-1.0-3.5); VBG Bicarbonate 27 mmol/L (22-26); VBG PO2 44 mmHg (25-40); VBG SO2 82 % (50-70); VBG TCO2 29 mmol/L (23-33); VBG pCO2 39.1 mmHg (41-51); VBG pH 7.45 (7.32-7.42)
[2021-04-17] MEDS: TITRATION PARAMETER CHANGE 1 EACH IV (09:52)
[2021-04-17] MEDS: Amiodarone 200 MG Tablet PO (09:59)
[2021-04-17] MEDS: dexAMETHasone 10 MG/ML Vial 6 MG IV (09:59)
[2021-04-17] MEDS: Enoxaparin 30 MG/0.3 ML Syringe SC ×2 (09:59→20:13)
[2021-04-17] MEDS: Ascorbic Acid 500 MG Tablet 1000 MG PO (09:59)
[2021-04-17] MEDS: Famotidine 20 MG Tablet GT ×2 (09:59→20:13)
--- NOTE | 2021-04-17 10:22 | NURSING ---
0930- ETT advanced to 26 @ [facility] by RT Milla per Dr. Torres order
--- NOTE | 2021-04-17 10:56 | CON.PCM.ID_ITS ---
Assessment & Plan Assessment/Plan (1) Pneumonia due to COVID-19 virus: PLAN: Presented 04/13 with a week of fatigue, cough, chills, hypoxia. Unvaccinated. Covid (+). Now on vent. On dex, remdesivir, empiric zosyn. Not a candidate for baricitinib on admission due to lymphopenia. Now 4 days into his stay with persistent high O2 requirements, so I think he is outside the window for tocilizumab. 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 Isolate for 20 days from start of symptoms (~04/06). Will follow, thank you, d/w Dr. Torres (2) Acute respiratory failure with hypoxia: HPI Consult Data Date of Consult: 04/17/21 HPI Narrative HPI Narrative: TEJA ROBERSON, is a 75 M who presented to ED 04/13 with hypoxia, headache, loss of taste/smell, cough, confusion. Unvaccinated for covid. Recently found to have brain mass, admitted to [facility], discharged on decadron. Admitted here on 6L, quickly advanced to Airvo. On dex, remdesivir. Severe lymphopenia, so was not candidate for baricitinib. Now intubated, started on zosyn. No fevers here. ROS unobtainable due to intubation/sedation. [facility] Medical History Asthma Atrial fibrillation Brain mass Cancer COPD (chronic obstructive pulmonary disease) Former smoker Hypertension Kidney stones Prostate cancer Vision loss of left eye Vision loss of right eye Home Medications amiodarone 200 mg PO DAILY 03/15/21 [History Last Taken 04/13/21] amlodipine 10 mg PO DAILY 03/15/21 [History Last Taken 04/13/21] losartan 100 mg PO DAILY 03/15/21 [History Last Taken 04/13/21] metoprolol tartrate 25 mg PO QHS 03/15/21 [History Last Taken 04/12/21] multivitamin 1 tab PO DAILY 03/15/21 [History Last Taken 04/13/21] potassium chloride 10 meq PO QHS 03/15/21 [History Last Taken 04/12/21] dexamethasone 4 mg PO BID 04/13/21 [History Last Taken 04/13/21] Allergy/AdvReac Type Severity Reaction Status Date / Time flecainide Allergy Other Verified 04/13/21 14:35 adhesive tape AdvReac WELTS WITH Verified 04/13/21 14:34 PROLONGED USE Family History Father Jenny Gehrig disease Cancer Mother Cancer Surgical History no surgical history Social History household members: spouse housing: house Smoking Status: Former smoker alcohol intake: never substance use type: does not use Physical Exam Const Constitutional Narrative: intubated, sedated HEENT normocephalic and head/scalp atraumatic Eyes PERRL Neck supple and No nodes Resp Auscultation: diminished lung sounds Cardio Rate: tachycardic GI normal to inspection, nondistended, normoactive bowel sounds Extremity General Extremity: edema Skin no rashes or lesions noted Lab / Micro Data Result Diagrams: 04/17/21 03:20 04/17/21 03:20 Labs: Laboratory Results - last 24 hr 04/14/21 06:53: Diff Path Review Reviewed 04/15/21 04:07: Diff Path Review Reviewed 04/16/21 04:55: Diff Path Review Reviewed 04/17/21 03:20: WBC 4.7, RBC 4.16 L, Hgb 12.6 L, Hct 36.8 L, MCV 88.5, MCH 30.3, MCHC 34.2, RDW Std Deviation 45.9 H, RDW Coeff of Mei 14.3, Plt Count 118 L, MPV 9.7, Immature Gran % (Auto) 1.300 H, Neut % (Auto) 93.5 H, Lymph % (Auto) 2.5 L, [place] % (Auto) 2.1, Eos % (Auto) 0.0, Baso % (Auto) 0.6, Absolute Neuts (auto) 4.4, Absolute Lymphs (auto) 0.12 L, Nucleated RBC % 0, Differential Comment SCANNED 04/17/21 03:20: Sodium 138, Potassium 3.4 L, Chloride 102, Carbon Dioxide 29.0, Anion Gap 7, BUN 55 H, Creatinine 1.10, Estim Creat Clear Calc 65.65, Est GFR (MDRD) Af Amer 84, Est GFR (MDRD) Non-Af 70, BUN/Creatinine Ratio 50.0 H, Glucose 159 H, Calcium 8.9, Total Bilirubin 0.70, AST 34, ALT 118 H, Alkaline Phosphatase 68, Total Protein 6.3 L, Albumin 1.3 L, Globulin 5.0 H, Albumin/Globulin Ratio 0.3 L 04/17/21 03:20: Total Creatine Kinase 86, Triglycerides 322 H ABG Data ABG results: ABG 04/17/21 09:31 Specimen Type KIMO Sample Site R Radial VBG pH 7.45 H VBG pO2 44 H VBG HCO3 27 H VBG Total CO2 29 VBG O2 Sat (Calc) 82 H VBG Base Excess 3 POC Mix VBG pCO2 Pt Tmp 39.1 L Respiration Rate 14 O2 Delivery Device Adult Vent POC PEEP 10 Radiology Impression Chest X-Ray 04/17/21 09:08 IMPRESSION: 1. Interval placement of endotracheal tube with the tip above the erika. 2. Interval placement of nasogastric tube with the tip below the diaphragm. 3. No change in bilateral pneumonia. Electronically Signed: Velasquez Lloyd MD at 9:25 EDT Tel , Service support ,
[2021-04-17] MEDS: Propofol 10MG/Ml 1,000 MG/100 ML Bottle 22.5 MG CONT INF (11:12)
[2021-04-17] MEDS: Vital AF 1.2 Cal Liquid 1,000 ML 60 ML GT (13:03)
--- NOTE | 2021-04-17 13:03 | NURSING ---
tube feed started at this time at 20 mL/hr per order
--- NOTE | 2021-04-17 14:40 | NURSING ---
surface hydrologist at bedside to place PICC
--- NOTE | 2021-04-17 15:10 | RAD_ITS ---
STUDY: X-RAY CHEST REASON FOR EXAM: Male, 75 years old. PICC line placement TECHNIQUE: Single AP portable view of the chest. COMPARISON: 04/17/2021 at 08 59 FINDINGS: Interval placement of right upper extremity PICC with tip the catheter overlying the junction of the right atrium and spur vena cava. Endotracheal tube and nasogastric tube both which are unchanged. No change in the patchy alveolar opacities in both lungs consistent with bilateral pneumonia. There is no demonstrated pleural abnormality. Normal size heart. Normal mediastinum and liane. Normal visualized pulmonary arteries. Normal visualized aortic arch and descending thoracic aorta. Normal visualized thoracic spine. Normal visualized ribs, clavicles, and shoulders. There is no demonstrated abnormality of the visualized soft tissue structures of the upper abdomen. RAD/CXR for Line Placement IMPRESSION: 1. Interval placement of right upper extremity PICC with tip the catheter overlying the junction of right atrium and spur vena cava. 2. Endotracheal tube and nasogastric tube both which are unchanged. 3. No change in bilateral pneumonia. Electronically Signed: Velasquez Lloyd MD at 15:27 EDT Tel , Service support ,
[2021-04-17] MEDS: Propofol 10MG/Ml 1,000 MG/100 ML Bottle 20.3 MG CONT INF ×3 (15:30→22:38)
[2021-04-17] MEDS: Ascorbic Acid 500 MG Tablet 1000 MG GT (17:38)
[2021-04-17] MEDS: Potassium Chloride Oral Soln 20 MEQ/15 ML UDC 10 MEQ GT (20:13)
[2021-04-17] MEDS: Chlorhexidine 15 ML PO (21:12)
[2021-04-18] VITALS (42 sets, daily range): BP systolic 87–144; BP diastolic 44–92; PULSE 61–132; RESP 12–28; TEMP 36.2–37.1; O2SAT 90–95
[2021-04-18] MEDS: Propofol 10MG/Ml 1,000 MG/100 ML Bottle 22.5 MG CONT INF ×6 (03:15→22:40)
[2021-04-18 04:22] LABS: Hematocrit 34.5 % (40-54); Hemoglobin 11.5 g/dL (13.0-16.5); Mean Corp Hgb Conc 33.3 g/dL (32-36); Mean Corpuscular Hgb 30.5 pg (27.0-32.0); Mean Corpuscular Volume 91.5 fL (80-94); Mean Platelet Vol. 9.7 fl (6.2-12.0); POSITIVE COUNT YES; POSITIVE DIFFERENTIAL YES; POSITIVE MORPHOLOGY YES; Platelet Count 155 K/mm3 (150-450); RBC Distribution Width CV 14.6 % (11.6-14.6); RBC Distribution Width SD 49.4 fl (35.1-43.9); Red Blood Count 3.77 M/mm3 (4.6-6.2)
[2021-04-18 04:50] LABS: ALB/GLOB Ratio 0.3 RATIO (0.9-2.4); AST(SGOT) 22 U/L (15-37); Alanine Aminotransfer ALT/SGPT 86 U/L (16-61); Albumin, Serum 1.3 g/dL (3.2-5.0); Alkaline Phosphatase 68 U/L (45-117); Anion Gap 9 (5-15); BUN 65 mg/dL (7-18); BUN/Creat Ratio 47.1 RATIO (10-20); Calcium,Total 8.7 mg/dL (8.5-10.1); Chloride 102 mmol/L (98-107); Creatinine, Serum 1.38 mg/dL (0.70-1.30); EST Glomerular Filtration Rate 54 mL/min (>60); Est Glom Filt Rate - Afr Amer 65 mL/min (>60); Estimated Creatinine Clearance 50.64 ml/min; Globulin 4.4 g/dL (2.2-4.2); Glucose 283 mg/dL (74-106); Protein, Total 5.7 g/dL (6.4-8.2); Sodium Level 138 mmol/L (136-145)
[2021-04-18 04:59] LABS: Differential Indicated MANUAL DIFF
[2021-04-18 05:09] LABS: Absolute Lymphocyte Count 0.06 X10^3/uL (0.83-4.51); Absolute Neutrophil Count 5.3 X10^3/uL (2.0-7.7); Metamyelocyte 3 % (0-1); Myelocyte 2 % (0-0); Neutrophil-Band 3 % (0-5); Neutrophil-Segmented 85 % (47-70)
[2021-04-18 05:10] LABS: Lymphocyte 1 % (19-41); Monocyte 1 % (0-10); Platelet Estimate ADEQUATE (ADEQ); Promyelocyte 5 % (0-0)
[2021-04-18 05:11] LABS: Tear Drop Cell RARE
--- NOTE | 2021-04-18 05:21 | PN.CC_ITS ---
Assessment & Plan Assessment/Plan (1) Pneumonia due to COVID-19 virus: (2) Acute respiratory failure with hypoxia: PLAN: RECOMMENDATIONS: 1. Continue to wean FiO2 and PEEP to maintain saturations at or above 90%. 2. Continue antimicrobials as ordered. 3. Continue Decadron and Lovenox. 4. Hold on diuretics given GREG. 5. Continue tube feeds as tolerated. 6. Continue appropriate GI prophylaxis. 7. Wean Levophed to maintain a mean arterial pressure at or above 65 mmHg. IMPRESSIONS: 1. Acute hypoxic respiratory failure secondary to COVID-19 and pseudomonal pneumonia The patient has had rapid worsening in his oxygenation status. The patient had essentially been BiPAP dependent for 3 straight days without any meaningful clinical improvement. Therefore, the decision was made to proceed with intubation on the morning of April 17. Plan to continue supportive measures and wean FiO2 to maintain oxygen saturations at or above 90%. The patient has completed a treatment course of remdesivir and will remain on Decadron and Love nox. The patient may have an underlying component of obstructive lung disease as well. We will plan to hold diuretics today given interval development of GREG. Continue antimicrobials as ordered along with vitamin C and zinc. The patient was not a candidate for baricitinib or tocilizumab. 2. Acute kidney injury Likely prerenal in etiology. Will hold on diuretics for now. Continue to monitor urine output. No current indication for renal replacement therapy. 3. Distributive shock The patient became hypotensive as a consequence of sedative medication use. Therefore, the patient will be continued on low-dose vasopressor support to emmanuel ntain hemodynamic stability. 4. Suspected CHF/A. fib Continue current medical management. The patient appears to be in rate controlled atrial fibrillation. The patient is on DVT prophylaxis with Lovenox, but may be at increased risk for full dose therapeutic anticoagulation given his brain mass. 5. Recent diagnosis of brain mass/advanced age/hypertension/history of prostate cancer/unvaccinated status Complicates care, management, recovery and prognosis. Continue medical management as noted above. Okay to continue tube feeds as tolerated. TIME: 35 minutes of critical care time, inclusive of procedures, was spent addressing the patient's acute hypoxemic respiratory failure secondary to COVID-19 pneumonia, acute kidney injury, distributive shock, atrial fibrillation, review of all data and collaboration with care team. ([id number]) Subjective Subjective The patient was seen and examined at the bedside this morning. Events from the last 24 hours have been reviewed. The patient did ultimately have to be started on low-dose vasopressor support yesterday due to hemodynamic instability. He is currently requiring Levophed at 5 mcg/min. The patient remains sedated on propofol and fentanyl. He is currently maintaining appropriate oxygen saturations on assist control mode mechanical ventilation with an FiO2 requirement of 65% and PEEP of 10. The patient is currently documented to be overall net -700 mL for the hospital admission. He is currently tolerating tube feeds. The patient has completed a treatment course of remdesivir. He was not felt to be a candidate for baricitinib or tocilizumab. The patient remains on Decadron and prophylactic Lovenox. In addition, the patient remains on empiric antimicrobials. Creatinine has increased this morning to 1.38. Objective Data Objective Data The patient's most recent lab work, culture data and imaging studies have all been personally reviewed. Rapid coronavirus antigen testing was positive on April 13. Strep and urine Legionella antigens were negative. Respiratory viral panel was negative. Sputum culture was positive for possible Pseudomonas. Vital Signs: Vital Signs Temp Pulse Resp BP Pulse Ox 97.8 F 89 16 106/54 L 95 04/18/21 03:00 04/18/21 05:00 04/18/21 05:00 04/18/21 05:00 04/18/21 05:00 Oxygen Flow Rate (L/min) 90 Oxygen Delivery Method Mechanical Ventilator Weight: 74.2 kg Body Mass Index (BMI) 24.0 Intake & Output: Intake and Output for Last 24 Hours 04/16/21 04/17/21 04/18/21 23:59 23:59 23:59 Intake Total 1338.5 / 1338.5 2115.46 / 2145.16 435.39 / 435.39 Output Total 1900 / 2050 850 / 1050 200 / 200 Balance -561.5 / -711.5 1265.46 / 1095.16 235.39 / 235.39 Lab / Micro Data Attestation: I reviewed the patient's lab results. Result Diagrams: 04/18/21 04:15 04/18/21 04:15 Labs: Laboratory Results - last 24 hr 04/17/21 03:20: Total Creatine Kinase 86, Triglycerides 322 H 04/18/21 04:15: WBC 6.0, RBC 3.77 L, Hgb 11.5 L, Hct 34.5 L, MCV 91.5, MCH 30.5, MCHC 33.3, RDW Std Deviation 49.4 H, RDW Coeff of Mei 14.6, Plt Count 155, MPV 9.7, Neut % (Auto) Not Reportable, Absolute Neuts (auto) 5.3, Absolute Lymphs (auto) 0.06 L, Neutrophils % (Manual) 85 H, Band Neutrophils % 3, Lymphocytes % (Manual) 1 L, Monocytes % (Manual) 1, Metamyelocytes % 3 H, Myelocytes % 2 H, Promyelocytes % 5 H, Diff Path Review November, Platelet Estimate ADEQUATE, Tear Drop Cells RARE 04/18/21 04:15: Sodium 138, Potassium 4.0, Chloride 102, Carbon Dioxide 27.0, Anion Gap 9, BUN 65 H, Creatinine 1.38 H, Estim Creat Clear Calc 50.64, Est GFR (MDRD) Af Amer 65, Est GFR (MDRD) Non-Af 54 L, BUN/Creatinine Ratio 47.1 H, Glucose 283 H, Calcium 8.7, Total Bilirubin 0.50, AST 22, ALT 86 H, Alkaline Phosphatase 68, Total Protein 5.7 L, Albumin 1.3 L, Globulin 4.4 H, Albumin/ Globulin Ratio 0.3 L Micro: Microbiology 04/17/21 08:55 Sputum, Induced/Lukens Gram Stain - Final 04/16/21 10:45 Sputum, Expectorated/Coughed Gram Stain - Final 04/16/21 10:45 Sputum, Expectorated/Coughed Respiratory Culture - Preliminary GNR Poss Pseudomonas sp 04/16/21 11:10 Sputum, Expectorated/Coughed Gram Stain - Final 04/14/21 00:00 Urine, Clean Catch Legionella Antigen - Final 04/14/21 00:00 Urine, Clean Catch Streptococcus pneumoniae Antigen (M - Final 04/13/21 19:28 Mucosa - Nasopharyngeal Respiratory Panel (PCR) - Final 04/13/21 16:18 Nasal Secretion SARS-CoV-2 Antigen (Rapid) - Final SARS-CoV-2 (COVID 19) ABG Data ABG results: ABG 04/17/21 09:31 Specimen Type KIMO Sample Site R Radial VBG pH 7.45 H VBG pO2 44 H VBG HCO3 27 H VBG Total CO2 29 VBG O2 Sat (Calc) 82 H VBG Base Excess 3 POC Mix VBG pCO2 Pt Tmp 39.1 L Respiration Rate 14 O2 Delivery Device Adult Vent POC PEEP 10 Radiography Diagnostic Testing: Radiology Impression Chest X-Ray 04/17/21 09:08 IMPRESSION: 1. Interval placement of endotracheal tube with the tip above the erika. 2. Interval placement of nasogastric tube with the tip below the diaphragm. 3. No change in bilateral pneumonia. Electronically Signed: Velasquez Lloyd MD at 9:25 EDT Tel , Service support , Chest X-Ray 04/17/21 15:10 IMPRESSION: 1. Interval placement of right upper extremity PICC with tip the catheter overlying the junction of right atrium and spur vena cava. 2. Endotracheal tube and nasogastric tube both which are unchanged. 3. No change in bilateral pneumonia. Electronically Signed: Velasquez Lloyd MD at 15:27 EDT Tel , Service support , Physical Exam Const no apparent distress General Appearance: intubated and patient mechanically ventilated HEENT normocephalic and head/scalp atraumatic Mouth: endotracheal tube in place and OG tube in place Eyes PERRL Neck supple General: trachea midline Chest inspection of chest normal Chest Narrative: No crepitus noted. Resp Auscultation: diminished lung sounds; Negative for rales, rhonchi or wheezes Cardio S1 normal heart sound and S2 normal heart sound Cardio Narrative: IRIR Rate: tachycardic GI normal to inspection, nondistended, normoactive bowel sounds Extremity General Extremity: edema; Negative for clubbing Skin no rashes or lesions noted Neuro Sensorium / Orientation: sedated on vent Charges/Coding Procedures Hospitalists Procedures: 80687 Critial Care 1st Hr
[2021-04-18] MEDS: Ipratropium/Albuterol Sulfate 3 ML AMPUL.NEB INHALATION ×4 (06:58→19:02)
--- NOTE | 2021-04-18 07:14 | PN.HOSP_ITS ---
Subjective Subjective Patient seen and examined. He remains intubated and sedated. He did have to be started on low dose levophed overnight o/a of hypotension. He is on tube feeds. Cr has trended up to 1.38 today. Objective Data Objective Data Vital Signs: Vital Signs Temp Pulse Resp BP Pulse Ox 97.8 F 96 16 108/57 L 93 04/18/21 03:00 04/18/21 07:00 04/18/21 07:00 04/18/21 07:00 04/18/21 07:00 Oxygen Flow Rate (L/min) 90 Oxygen Delivery Method Mechanical Ventilator Weight: 163 lb 9.328 oz Body Mass Index (BMI) 24.0 Intake & Output: Intake and Output for Last 24 Hours 04/16/21 04/17/21 04/18/21 23:59 23:59 23:59 Intake Total 1338.5 / 1338.5 2115.46 / 2145.16 619.19 / 619.19 Output Total 1900 / 2050 850 / 1050 200 / 200 Balance -561.5 / -711.5 1265.46 / 1095.16 419.19 / 419.19 Lab / Micro Data Result Diagrams: 04/18/21 04:15 04/18/21 04:15 Labs: Laboratory Results - last 24 hr 04/17/21 03:20: Total Creatine Kinase 86, Triglycerides 322 H 04/18/21 04:15: WBC 6.0, RBC 3.77 L, Hgb 11.5 L, Hct 34.5 L, MCV 91.5, MCH 30.5, MCHC 33.3, RDW Std Deviation 49.4 H, RDW Coeff of Mei 14.6, Plt Count 155, MPV 9.7, Neut % (Auto) Not Reportable, Absolute Neuts (auto) 5.3, Absolute Lymphs (auto) 0.06 L, Neutrophils % (Manual) 85 H, Band Neutrophils % 3, Lymphocytes % (Manual) 1 L, Monocytes % (Manual) 1, Metamyelocytes % 3 H, Myelocytes % 2 H, Promyelocytes % 5 H, Diff Path Review May , Platelet Estimate ADEQUATE, Tear Drop Cells RARE 04/18/21 04:15: Sodium 138, Potassium 4.0, Chloride 102, Carbon Dioxide 27.0, Anion Gap 9, BUN 65 H, Creatinine 1.38 H, Estim Creat Clear Calc 50.64, Est GFR (MDRD) Af Amer 65, Est GFR (MDRD) Non-Af 54 L, BUN/Creatinine Ratio 47.1 H, Glucose 283 H, Calcium 8.7, Total Bilirubin 0.50, AST 22, ALT 86 H, Alkaline Phosphatase 68, Total Protein 5.7 L, Albumin 1.3 L, Globulin 4.4 H, Albumin/Globulin Ratio 0.3 L Micro: Microbiology 04/17/21 08:55 Sputum, Induced/Lukens Gram Stain - Final 04/16/21 10:45 Sputum, Expectorated/Coughed Gram Stain - Final 04/16/21 10:45 Sputum, Expectorated/Coughed Respiratory Culture - Preliminary GNR Poss Pseudomonas sp 04/16/21 11:10 Sputum, Expectorated/Coughed Gram Stain - Final 04/14/21 00:00 Urine, Clean Catch Legionella Antigen - Final 04/14/21 00:00 Urine, Clean Catch Streptococcus pneumoniae Antigen (M - Final 04/13/21 19:28 Mucosa - Nasopharyngeal Respiratory Panel (PCR) - Final 04/13/21 16:18 Nasal Secretion SARS-CoV-2 Antigen (Rapid) - Final SARS-CoV-2 (COVID 19) ABG Data ABG results: ABG 04/17/21 09:31 Specimen Type KIMO Sample Site R Radial VBG pH 7.45 H VBG pO2 44 H VBG HCO3 27 H VBG Total CO2 29 VBG O2 Sat (Calc) 82 H VBG Base Excess 3 POC Mix VBG pCO2 Pt Tmp 39.1 L Respiration Rate 14 O2 Delivery Device Adult Vent POC PEEP 10 Radiography Diagnostic Testing: Radiology Impression Chest X-Ray 04/17/21 09:08 IMPRESSION: 1. Interval placement of endotracheal tube with the tip above the erika. 2. Interval placement of nasogastric tube with the tip below the diaphragm. 3. No change in bilateral pneumonia. Electronically Signed: Velasquez Lloyd MD at 9:25 EDT Tel , Service support , Chest X-Ray 04/17/21 15:10 IMPRESSION: 1. Interval placement of right upper extremity PICC with tip the catheter overlying the junction of right atrium and spur vena cava. 2. Endotracheal tube and nasogastric tube both which are unchanged. 3. No change in bilateral pneumonia. Electronically Signed: Velasquez Lloyd MD at 15:27 EDT Tel , Service support , Physical Exam Const Constitutional Narrative: intubated, sedated, RASS score is -4 General Appearance: cooperative HEENT normocephalic, head/scalp atraumatic and moist oral mucous membranes Head and Scalp: normocephalic Eyes PERRL, EOMs intact bilaterally and conjunctivae normal Neck no lymphadenopathy, supple and no JVD Resp Resp Narrative: diminished breath sounds posteriorly, bibasally. No wheezes or crackles. intubated and sedated Effort and Inspection: tachypneic Auscultation: diminished lung sounds Cardio regular rate, regular rhythm, S1 normal heart sound, S2 normal heart sound and no murmurs GI normal to inspection, nondistended, normoactive bowel sounds, soft to palpation, non-tender and non-distended; Negative for hepatosplenomegaly Extremity normal to inspection, full ROM and no clubbing, cyanosis or edema General Extremity: edema; Negative for clubbing or cyanosis Skin no rashes or lesions noted Neuro Neuro Narrative: intubated, sedated, RASS score is -4 Psych Psych Narrative: as under neuro Appearance: appropriate Assessment & Plan Assessment/Plan (1) Acute respiratory failure with hypoxia: PLAN: #Acute hypoxic respiratory failure due to COVID 19 pneumonia * remains intubated and sedated. Had to be started on low dose levophed overnight o/a of hemodynamic instability. * has completed a course of remdesivir. Remains on decadrone. * diuretics held o/a of Cr trending up to 1.34 today. * critical care on board * titrate oxygen to maintain sats >90% * breathing treatment with bronchodilators. * on IV zosyn and decacron * also on vitamin C and zinc * #Septic shock due to Covid 19 pneumonia * had to be started on low dose levophed overnight. * titrate levophed to maintain MAP >65 * # COVID 19 pneumonia: as above #Hypokalemia: resolved #Thromobocytopenia * Platelets are up to 155 today. Improved significantly. Will trend. * #Afib: * will hold these o/a of hypotension. * not on full dose anticoagulation; may be at increased risk for brain bleed with full dose anticoagulation due to his brain mass. #Elevated Cr: Cr is up to 1.38, from 1.1 yesterday. likely due to hypotension. WIll trend and monitor #Hypertension: on metoprolol and losartan; hold as patient now on levophed for shock. #Brain mass * recently diagnosed with a brain mass at [facility] which he elected not to have worked up there. * MRI of the brain on 04/03/2021 showed a large enhancing right parieto occipital mass with vasogenic edema, consistent with neoplasm DVT prophylaxis: lovenox 30mg bid Charges/Coding Visit Charges Inpatient E&M: 59534 Subs Hosp L3
[2021-04-18] MEDS: dexAMETHasone 10 MG/ML Vial 6 MG IV (08:11)
[2021-04-18] MEDS: Famotidine 20 MG Tablet GT ×2 (08:11→21:14)
[2021-04-18] MEDS: Amiodarone 200 MG Tablet GT (08:11)
[2021-04-18] MEDS: Ascorbic Acid 500 MG Tablet 1000 MG GT ×2 (08:11→17:27)
[2021-04-18] MEDS: Enoxaparin 30 MG/0.3 ML Syringe SC ×2 (08:11→21:13)
[2021-04-18] MEDS: Metoprolol Tartrate 25 MG Tablet GT ×2 (09:25→21:14)
[2021-04-18] MEDS: Chlorhexidine 15 ML PO ×2 (09:27→21:14)
[2021-04-18 12:35] LABS: Pathologist Review Reviewed
[2021-04-18] MEDS: Vital AF 1.2 Cal Liquid 1,000 ML 65 ML GT (13:49)
--- NOTE | 2021-04-18 15:51 | CASEMGMT ---
Per RNCM, PT made aware that copy of HCPOA and living will are not on file. Pt states pt has documents and will try to locate them and bring them in. MYKE Willis
[2021-04-18] MEDS: Potassium Chloride Oral Soln 20 MEQ/15 ML UDC 10 MEQ GT (21:13)
[2021-04-18] MEDS: 0.9% Saline Lock 10 ML Syringe IV (21:15)
[2021-04-19] VITALS (41 sets, daily range): BP systolic 87–132; BP diastolic 47–94; PULSE 64–109; RESP 13–18; TEMP 36.3–37.1; O2SAT 90–95
[2021-04-19] MEDS: Propofol 10MG/Ml 1,000 MG/100 ML Bottle 22.5 MG CONT INF ×5 (03:07→21:42)
[2021-04-19] MEDS: CHLORHEXIDINE GLUC 2% CLOTH 1 EACH TOWELETTE TOPICAL (04:54)
[2021-04-19] MEDS: Vital AF 1.2 Cal Liquid 1,000 ML 65 ML GT (04:54)
--- NOTE | 2021-04-19 05:34 | PN.CC_ITS ---
Assessment & Plan Assessment/Plan (1) Pneumonia due to COVID-19 virus: (2) Acute respiratory failure with hypoxia: PLAN: RECOMMENDATIONS: 1. Continue to wean FiO2 and PEEP to maintain saturations at or above 90%. 2. Continue antimicrobials as ordered. Will add Levaquin given stenotrophom onas noted on culture. 3. Continue Decadron and Lovenox. 4. Continue tube feeds as tolerated. 5. Continue appropriate GI prophylaxis. 6. Wean Levophed to maintain a mean arterial pressure at or above 65 mmHg. 7. Recheck D-dimer level. 8. Administer IV Lasix. IMPRESSIONS: 1. Acute hypoxic respiratory failure secondary to COVID-19 and pseudomonal/stenotrophomonas pneumonia The patient has had rapid worsening in his oxygenation status. The patient had essentially been BiPAP dependent for 3 straight days without any meaningful clinical improvement. Therefore, the decision was made to proceed with intubation on the morning of April 17. Plan to continue supportive measures and wean FiO2 to maintain oxygen saturations at or above 90%. The patient has completed a treatment course of remdesivir and will remain on Decadron and Lovenox. The patient may have an underlying component of obstructive lung disease as well. Continue antimicrobials as ordered along with vitamin C and zinc. The patient was not a candidate for baricitinib or tocilizumab. 2. Acute kidney injury Likely prerenal in etiology. Continue to monitor urine output. No current indication for renal replacement therapy. 3. Distributive shock The patient became hypotensive as a consequence of sedative medication use. Therefore, the patient will be continued on low-dose vasopressor support to maintain hemodynamic stability. 4. Suspected CHF/A. fib Continue current medical management. The patient appears to be in rate controlled atrial fibrillation. The patient is on DVT prophylaxis with Lovenox, but may be at increased risk for full dose therapeutic anticoagulation given his brain mass. 5. Recent diagnosis of brain mass/advanced age/hypertension/history of prostate cancer/unvaccinated status Complicates care, management, recovery and prognosis. Continue medical management as noted above. Okay to continue tube feeds as tolerated. TIME: 38 minutes of critical care time, inclusive of procedures, was spent addressing the patient's acute hypoxemic respiratory failure secondary to COVID-19 pneumonia, acute kidney injury, distributive shock, atrial fibrillation, review of all data and collaboration with care team. ([id number]) Subjective Subjective The patient was seen and examined at the bedside this morning. Events from the last 24 hours have been reviewed. The patient is currently afebrile. He remains on assist control mode of mechanical ventilation with an FiO2 requirement of 60% and PEEP of 10. He is currently sedated on a combination of propofol and fentanyl. He is currently tolerant of tube feeds. The patient remains on Levophed at 10 mcg/min to maintain hemodynamic stability. The patient is currently documented to be overall net +2.2 L for the hospital admission. The patient has completed a treatment course of remdesivir. He was not felt to be a candidate for baricitinib or tocilizumab. The patient remains on Decadron and prophylactic Lovenox. In addition, the patient remains on empiric antimicrobials. Objective Data Objective Data The patient's most recent lab work, culture data and imaging studies have all been personally reviewed. Rapid coronavirus antigen testing was positive on April 13. Strep and urine Legionella antigens were negative. Respiratory viral panel was negative. Sputum culture was positive for possible Pseudomonas. Vital Signs: Vital Signs Temp Pulse Resp BP Pulse Ox 98.7 F 67 14 109/59 L 94 04/19/21 00:00 04/19/21 04:49 04/19/21 04:49 04/19/21 03:00 04/19/21 04:49 Oxygen Flow Rate (L/min) 90 Oxygen Delivery Method Mechanical Ventilator Weight: 74.2 kg Body Mass Index (BMI) 24.0 Intake & Output: Intake and Output for Last 24 Hours 04/17/21 04/18/21 04/19/21 23:59 23:59 23:59 Intake Total 2115.46 / 2145.16 3798.54 / 3859.84 980.03 / 980.03 Output Total 850 / 1050 1175 / 1350 475 / 475 Balance 1265.46 / 1095.16 2623.54 / 2509.84 505.03 / 505.03 Lab / Micro Data Attestation: I reviewed the patient's lab results. Result Diagrams: 04/19/21 05:00 04/19/21 05:00 Labs: Laboratory Results - last 24 hr 04/18/21 04:15: Diff Path Review Reviewed Micro: Microbiology 04/17/21 08:55 Sputum, Induced/Lukens Gram Stain - Final 04/17/21 08:55 Sputum, Induced/Lukens Respiratory Culture - Preliminary Gram negative vinicius 04/16/21 11:10 Sputum, Expectorated/Coughed Gram Stain - Final 04/16/21 11:10 Sputum, Expectorated/Coughed Respiratory Culture - Final Presumptive C albicans 04/16/21 10:45 Sputum, Expectorated/Coughed Gram Stain - Final 04/16/21 10:45 Sputum, Expectorated/Coughed Respiratory Culture - Final Pseudomonas aeroginosa Presumptive C albicans 04/14/21 00:00 Urine, Clean Catch Legionella Antigen - Final 04/14/21 00:00 Urine, Clean Catch Streptococcus pneumoniae Antigen (M - Final 04/13/21 19:28 Mucosa - Nasopharyngeal Respiratory Panel (PCR) - Final 04/13/21 16:18 Nasal Secretion SARS-CoV-2 Antigen (Rapid) - Final SARS-CoV-2 (COVID 19) Physical Exam Const no apparent distress General Appearance: intubated and patient mechanically ventilated HEENT normocephalic and head/scalp atraumatic Mouth: endotracheal tube in place and OG tube in place Eyes PERRL Neck supple General: trachea midline Chest inspection of chest normal Chest Narrative: No crepitus noted. Resp Auscultation: diminished lung sounds; Negative for rales, rhonchi or wheezes Cardio S1 normal heart sound and S2 normal heart sound Cardio Narrative: IRIR Rate: tachycardic GI normal to inspection, nondistended, normoactive bowel sounds Extremity General Extremity: edema; Negative for clubbing Skin no rashes or lesions noted Neuro Sensorium / Orientation: sedated on vent Charges/Coding Procedures Hospitalists Procedures: 02434 Critial Care 1st Hr
[2021-04-19 06:18] LABS: Hemoglobin 11.1 g/dL (13.0-16.5); Mean Corp Hgb Conc 34.7 g/dL (32-36); Mean Corpuscular Hgb 32.3 pg (27.0-32.0); Mean Platelet Vol. 10.8 fl (6.2-12.0); POSITIVE COUNT YES; POSITIVE DIFFERENTIAL YES; POSITIVE MORPHOLOGY YES; Platelet Count 104 K/mm3 (150-450); RBC Distribution Width CV 14.6 % (11.6-14.6); RBC Distribution Width SD 50.3 fl (35.1-43.9); Red Blood Count 3.44 M/mm3 (4.6-6.2); White Blood Count 5.1 K/mm3 (4.4-11.0)
[2021-04-19 06:33] LABS: Differential Indicated MANUAL DIFF
[2021-04-19] MEDS: Ipratropium/Albuterol Sulfate 3 ML AMPUL.NEB INHALATION ×4 (06:54→18:59)
[2021-04-19 07:02] LABS: ALB/GLOB Ratio 0.3 RATIO (0.9-2.4); AST(SGOT) 24 U/L (15-37); Alanine Aminotransfer ALT/SGPT 65 U/L (16-61); Albumin, Serum 1.2 g/dL (3.2-5.0); Alkaline Phosphatase 69 U/L (45-117); Anion Gap 7 (5-15); BUN 58 mg/dL (7-18); BUN/Creat Ratio 45.3 RATIO (10-20); Calcium,Total 7.8 mg/dL (8.5-10.1); Chloride 102 mmol/L (98-107); Creatinine, Serum 1.28 mg/dL (0.70-1.30); EST Glomerular Filtration Rate 58 mL/min (>60); Est Glom Filt Rate - Afr Amer 71 mL/min (>60); Estimated Creatinine Clearance 54.89 ml/min; Glucose 339 mg/dL (74-106); Potassium 4.3 mmol/L (3.5-5.1); Protein, Total 5.2 g/dL (6.4-8.2); Sodium Level 136 mmol/L (136-145)
[2021-04-19 07:13] LABS: Absolute Lymphocyte Count 0.21 X10^3/uL (0.83-4.51); Absolute Neutrophil Count 4.6 X10^3/uL (2.0-7.7); Metamyelocyte 1 % (0-1); Neutrophil-Band 12 % (0-5); Neutrophil-Segmented 78 % (47-70)
[2021-04-19 07:14] LABS: Lymphocyte 4 % (19-41); Monocyte 1 % (0-10); Myelocyte 2 % (0-0); Platelet Estimate SLT DEC (ADEQ); Promyelocyte 2 % (0-0)
[2021-04-19 07:15] LABS: Red Cell Morphology NORM C+C NORMAL (NORM C&C); Tear Drop Cell 1+
--- NOTE | 2021-04-19 07:16 | PN.HOSP_ITS ---
Subjective Subjective Patient seen and examined. He remains intubated and sedated, and is now on FiO2 of 60% and PEEP of 10. He is on tube feeds, and is on levophed to support his blood pressure. He remains on decadron and antibiotics. Objective Data Objective Data Vital Signs: Vital Signs Temp Pulse Resp BP Pulse Ox 98.7 F 71 14 114/63 93 04/19/21 04:00 04/19/21 06:59 04/19/21 06:59 04/19/21 06:32 04/19/21 06:55 Oxygen Flow Rate (L/min) 90 Oxygen Delivery Method Mechanical Ventilator Weight: 166 lb 7.184 oz Body Mass Index (BMI) 24.0 Intake & Output: Intake and Output for Last 24 Hours 04/17/21 04/18/21 04/19/21 23:59 23:59 23:59 Intake Total 2115.46 / 2145.16 3798.54 / 3859.84 1096.96 / 1096.96 Output Total 850 / 1050 1175 / 1350 475 / 475 Balance 1265.46 / 1095.16 2623.54 / 2509.84 621.96 / 621.96 Lab / Micro Data Result Diagrams: 04/19/21 05:00 04/19/21 05:00 Labs: Laboratory Results - last 24 hr 04/18/21 04:15: Diff Path Review Reviewed 04/19/21 05:00: WBC 5.1, RBC 3.44 L, Hgb 11.1 L, Hct 32.0 L, MCV 93.0, MCH 32.3 H, MCHC 34.7, RDW Std Deviation 50.3 H, RDW Coeff of Mei 14.6, Plt Count 104 L, MPV 10.8, Neut % (Auto) Not Reportable, Absolute Neuts (auto) 4.6, Absolute Lymphs (auto) 0.21 L, Neutrophils % (Manual) 78 H, Band Neutrophils % 12 H, Lymphocytes % (Manual) 4 L, Monocytes % (Manual) 1, Metamyelocytes % 1, Myelocytes % 2 H, Promyelocytes % 2 H, Diff Path Review May foll, Platelet Estimate SLT DEC, RBC Morphology NORM C+C, Tear Drop Cells 1+ 04/19/21 05:00: Sodium 136, Potassium 4.3, Chloride 102, Carbon Dioxide 27.0, Anion Gap 7, BUN 58 H, Creatinine 1.28, Estim Creat Clear Calc 54.89, Est GFR (MDRD) Af Amer 71, Est GFR (MDRD) Non-Af 58 L, BUN/Creatinine Ratio 45.3 H, Glucose 339 H, Calcium 7.8 L, Total Bilirubin 0.60, AST 24, ALT 65 H, Alkaline Phosphatase 69, Total Protein 5.2 L, Albumin 1.2 L, Globulin 4.0, Albumin/Globulin Ratio 0.3 L Micro: Microbiology 04/17/21 08:55 Sputum, Induced/Lukens Gram Stain - Final 04/17/21 08:55 Sputum, Induced/Lukens Respiratory Culture - Preliminary Gram negative vinicius 04/16/21 11:10 Sputum, Expectorated/Coughed Gram Stain - Final 04/16/21 11:10 Sputum, Expectorated/Coughed Respiratory Culture - Final Presumptive C albicans 04/16/21 10:45 Sputum, Expectorated/Coughed Gram Stain - Final 04/16/21 10:45 Sputum, Expectorated/Coughed Respiratory Culture - Final Pseudomonas aeroginosa Presumptive C albicans 04/14/21 00:00 Urine, Clean Catch Legionella Antigen - Final 04/14/21 00:00 Urine, Clean Catch Streptococcus pneumoniae Antigen (M - Final 04/13/21 19:28 Mucosa - Nasopharyngeal Respiratory Panel (PCR) - Final 04/13/21 16:18 Nasal Secretion SARS-CoV-2 Antigen (Rapid) - Final SARS-CoV-2 (COVID 19) Physical Exam Const Constitutional Narrative: intubated, sedated, RASS score is -4 General Appearance: cooperative Exam Limitations: no limitations and altered mental status HEENT normocephalic, head/scalp atraumatic and moist oral mucous membranes Head and Scalp: normocephalic Eyes PERRL, EOMs intact bilaterally and conjunctivae normal Neck no lymphadenopathy, supple and no JVD Resp Resp Narrative: diminished breath sounds posteriorly, bibasally. No wheezes or crackles. intubated and sedated Effort and Inspection: tachypneic Auscultation: diminished lung sounds Cardio regular rate, regular rhythm, S1 normal heart sound, S2 normal heart sound and no murmurs GI normal to inspection, nondistended, normoactive bowel sounds, soft to palpation, non-tender and non-distended; Negative for hepatosplenomegaly Extremity normal to inspection, full ROM and no clubbing, cyanosis or edema General Extremity: edema; Negative for clubbing or cyanosis Peripheral Pulses: Yes pulses 2+ throughout Skin no rashes or lesions noted Neuro Neuro Narrative: intubated, sedated, RASS score is -4 Psych Psych Narrative: intubated and sedated Appearance: appropriate Assessment & Plan Assessment/Plan (1) Acute respiratory failure with hypoxia: PLAN: #Acute hypoxic respiratory failure due to COVID 19 pneumonia * remains intubated and sedated. remains on levophed for hemodynamic support * has completed a course of remdesivir. Remains on decadrone. * diuretics held o/a of Cr trending up to 1.34 today. * critical care on board * titrate oxygen to maintain sats >90% * breathing treatment with bronchodilators. * on IV zosyn and decadron * also on vitamin C and zinc * sputum culture positive for ?Pseudomonas * #Septic shock due to Covid 19 pneumonia * remains on levophed. * titrate levophed to maintain MAP >65 * # COVID 19 pneumonia: as above #Hypokalemia: resolved #Thromobocytopenia * Platelets are 104 today. Will trend * #Afib: * meds on hold o/a of hypotension. * not on full dose anticoagulation; may be at increased risk for brain bleed with full dose anticoagulation due to his brain mass. #Elevated Cr: Cr down to 1.28 today. Will monitor #Hypertension: on metoprolol and losartan; hold as patient now on levophed for shock. #Brain mass * recently diagnosed with a brain mass at [facility] which he elected not to have worked up there. 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
[2021-04-19] MEDS: Ascorbic Acid 500 MG Tablet 1000 MG GT ×2 (08:21→15:21)
[2021-04-19] MEDS: dexAMETHasone 10 MG/ML Vial 6 MG IV (08:22)
[2021-04-19] MEDS: Enoxaparin 30 MG/0.3 ML Syringe SC ×2 (08:22→21:21)
[2021-04-19] MEDS: Chlorhexidine 15 ML PO ×2 (08:23→21:21)
[2021-04-19] MEDS: Senna/Docusate Sodium 1 Tablet 2 TABLET GT ×2 (08:25→21:22)
[2021-04-19] MEDS: Amiodarone 200 MG Tablet GT (08:25)
[2021-04-19] MEDS: 0.9% Saline Lock 10 ML Syringe IV ×2 (08:25→10:12)
[2021-04-19] MEDS: Metoprolol Tartrate 25 MG Tablet GT ×2 (08:25→21:22)
[2021-04-19] MEDS: Famotidine 20 MG Tablet GT ×2 (08:25→21:22)
[2021-04-19] MEDS: Furosemide 40 MG/4 ML Vial IV (10:13)
[2021-04-19] MEDS: Insulin Lispro 100 UNIT/ML INSULN.PEN SC ×2 (10:13→17:36)
--- NOTE | 2021-04-19 10:32 | PCM.PN.ID ---
Physical Exam Narrative On vent, no fever Const no apparent distress Resp Auscultation: diminished lung sounds Cardio regular rate and regular rhythm GI normal to inspection, nondistended, normoactive bowel sounds Skin no rashes or lesions noted ID ID: Route of nutrition/ use of supplements: [] Nutritional Intake: [] IV Site: [] Eastman Catheter: [] Assessment & Plan Assessment/Plan (1) Pneumonia due to COVID-19 virus: PLAN: Presented 04/13 with a week of fatigue, cough, chills, hypoxia. Unvaccinated. Covid (+). Now on vent. On dex, remdesivir, levaquin. Sputum 04/16 with PsA, sputum 04/17 with steno. Not a candidate for baricitinib on admission due to lymphopenia. 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 Isolate for 20 days from start of symptoms (~04/06). Will follow (2) Acute respiratory failure with hypoxia:
[2021-04-19] MEDS: levoFLOXacin IV 750 MG/150 ML BAG 100 MG IV (10:49)
[2021-04-19 10:51] LABS: Bedside Glucose 304 mg/dL (70-110)
[2021-04-19 14:29] LABS: Pathologist Review Reviewed
[2021-04-19 17:45] LABS: Bedside Glucose 425 mg/dL (70-110)
[2021-04-19] MEDS: Potassium Chloride Oral Soln 20 MEQ/15 ML UDC 10 MEQ GT (21:21)
[2021-04-20] VITALS (45 sets, daily range): BP systolic 76–140; BP diastolic 44–82; PULSE 68–143; RESP 13–23; TEMP 36.1–36.8; O2SAT 86–98
[2021-04-20] MEDS: Insulin Lispro 100 UNIT/ML INSULN.PEN SC ×5 (00:36→23:13)
[2021-04-20] MEDS: Propofol 10MG/Ml 1,000 MG/100 ML Bottle 22.5 MG CONT INF ×3 (02:00→06:15)
[2021-04-20 02:06] LABS: Bedside Glucose 334 mg/dL (70-110)
[2021-04-20 04:27] LABS: Hemoglobin 9.7 g/dL (13.0-16.5); Mean Corp Hgb Conc 32.3 g/dL (32-36); Mean Corpuscular Hgb 30.2 pg (27.0-32.0); Mean Corpuscular Volume 93.5 fL (80-94); Mean Platelet Vol. 11.5 fl (6.2-12.0); POSITIVE COUNT YES; POSITIVE DIFFERENTIAL YES; POSITIVE MORPHOLOGY YES; Platelet Count 79 K/mm3 (150-450); RBC Distribution Width CV 14.8 % (11.6-14.6); RBC Distribution Width SD 51.4 fl (35.1-43.9); Red Blood Count 3.21 M/mm3 (4.6-6.2)
[2021-04-20 04:28] LABS: Differential Indicated MANUAL DIFF
[2021-04-20 04:42] LABS: Anion Gap 5 (5-15); BUN 64 mg/dL (7-18); BUN/Creat Ratio 42.7 RATIO (10-20); Calcium,Total 8.5 mg/dL (8.5-10.1); Chloride 106 mmol/L (98-107); EST Glomerular Filtration Rate 49 mL/min (>60); Est Glom Filt Rate - Afr Amer 59 mL/min (>60); Estimated Creatinine Clearance 46.84 ml/min; Glucose 279 mg/dL (74-106); Potassium 4.4 mmol/L (3.5-5.1); Sodium Level 142 mmol/L (136-145)
[2021-04-20 04:52] LABS: Absolute Lymphocyte Count 0.12 X10^3/uL (0.83-4.51); Absolute Neutrophil Count 2.6 X10^3/uL (2.0-7.7); Metamyelocyte 1 % (0-1); Myelocyte 1 % (0-0); Neutrophil-Band 7 % (0-5); Neutrophil-Segmented 82 % (47-70); Promyelocyte 3 % (0-0)
[2021-04-20 04:53] LABS: Lymphocyte 4 % (19-41); Monocyte 1 % (0-10); Platelet Estimate MOD DEC (ADEQ); Tear Drop Cell 1+
[2021-04-20 05:06] LABS: Triglycerides 296 mg/dL
--- NOTE | 2021-04-20 05:48 | PN.CC_ITS ---
Assessment & Plan Assessment/Plan (1) Pneumonia due to COVID-19 virus: (2) Acute respiratory failure with hypoxia: PLAN: RECOMMENDATIONS: 1. Continue to wean FiO2 and PEEP to maintain saturations at or above 90%. 2. Continue antimicrobials as ordered. 3. Continue Decadron and Lovenox. 4. Continue tube feeds as tolerated. 5. Continue appropriate GI prophylaxis. 6. Wean Levophed to maintain a mean arterial pressure at or above 65 mmHg. 7. Obtain nephrology consultation given worsening renal insufficiency. IMPRESSIONS: 1. Acute hypoxic respiratory failure secondary to COVID-19 and pseudomonal/stenotrophomonas pneumonia The patient has had rapid worsening in his oxygenation status. The patient had essentially been BiPAP dependent for 3 straight days without any meaningful clinical improvement. Therefore, the decision was made to proceed with intubation on the morning of April 17. Plan to continue supportive measures and wean FiO2 to maintain oxygen saturations at or above 90%. The patient has completed a treatment course of remdesivir and will remain on Decadron and Lovenox. The patient may have an underlying component of obstructive lung disease as well. Continue antimicrobials as ordered along with vitamin C and zinc. The patient was not a candidate for baricitinib or tocilizumab. The patient is unable to receive diuretic therapy due to worsening renal insufficiency. 2. Acute kidney injury Likely prerenal in etiology. Continue to monitor urine output. No current indication for renal replacement therapy. Will obtain nephrology consultation today. Continue to hold diuretics. 3. Distributive shock The patient became hypotensive as a consequence of sedative medication use. Therefore, the patient will be continued on low-dose vasopressor support to maintain hemodynamic stability. 4. Suspected CHF/A. fib Continue current medical management. The patient appears to be in rate controlled atrial fibrillation. The patient is on DVT prophylaxis with Lovenox, but may be at increased risk for full dose therapeutic anticoagulation given his brain mass. 5. Recent diagnosis of brain mass/advanced age/hypertension/history of prostate cancer/unvaccinated status Complicates care, management, recovery and prognosis. Continue medical management as noted above. Okay to continue tube feeds as tolerated. TIME: 35 minutes of critical care time, inclusive of procedures, was spent addressing the patient's acute hypoxemic respiratory failure secondary to COVID-19 pneumonia, acute kidney injury, distributive shock, atrial fibrillation, review of all data and collaboration with care team. ([id number]) Subjective Subjective The patient was seen and examined at the bedside this morning. Events from the last 24 hours have been reviewed. The patient is currently afebrile. The patient remains on low-dose Levophed at 5 mcg/min to maintain hemodynamic stability. He remains on assist control mode of mechanical ventilation with an FiO2 requirement of 65% and PEEP of 10. The patient is sedated on propofol and fentanyl. He is currently documented to be overall net +3.5 L for the hosp italization. The patient has completed a treatment course of remdesivir. He was not felt to be a candidate for baricitinib or tocilizumab. The patient remains on Decadron and prophylactic Lovenox. In addition, the patient remains on antimicrobials. The patient is currently pancytopenic. His hemoglobin dropped to 9.7 g/dL this morning. Platelet count remains low at 79,000. Creatinine is elevated at 1.5 with a BUN of 64. Triglycerides are elevated at 296. Objective Data Objective Data The patient's most recent lab work, culture data and imaging studies have all been personally reviewed. Rapid coronavirus antigen testing was positive on April 13. Strep and urine Legionella antigens were negative. Respiratory viral panel was negative. The patient's sputum cultures have demonstrated growth of Pseudomonas and stenotrophomonas. Vital Signs: Vital Signs Temp Pulse Resp BP Pulse Ox 98 F 94 22 H 97/56 L 94 04/20/21 00:00 04/20/21 04:46 04/20/21 04:46 04/20/21 03:00 04/20/21 04:46 Oxygen Flow Rate (L/min) 90 Oxygen Delivery Method Mechanical Ventilator Weight: 75.5 kg Body Mass Index (BMI) 24.0 Intake & Output: Intake and Output for Last 24 Hours 04/18/21 04/19/21 04/20/21 23:59 23:59 23:59 Intake Total 3798.54 / 3859.84 3685.09 / 3981.99 438.5 / 438.5 Output Total 1175 / 1350 1925 / 2425 500 / 500 Balance 2623.54 / 2509.84 1760.09 / 1556.99 -61.5 / -61.5 Lab / Micro Data Attestation: I reviewed the patient's lab results. Result Diagrams: 04/20/21 04:10 04/20/21 04:10 Labs: Laboratory Results - last 24 hr 04/19/21 05:00: WBC 5.1, RBC 3.44 L, Hgb 11.1 L, Hct 32.0 L, MCV 93.0, MCH 32.3 H, MCHC 34.7, RDW Std Deviation 50.3 H, RDW Coeff of Mei 14.6, Plt Count 104 L, MPV 10.8, Neut % (Auto) Not Reportable, Absolute Neuts (auto) 4.6, Absolute Lymphs (auto) 0.21 L, Neutrophils % (Manual) 78 H, Band Neutrophils % 12 H, Lymphocytes % (Manual) 4 L, Monocytes % (Manual) 1, Metamyelocytes % 1, Myelocytes % 2 H, Promyelocytes % 2 H, Diff Path Review Reviewed, Platelet Estimate SLT DEC, RBC Morphology NORM C+C, Tear Drop Cells 1+ 04/19/21 05:00: Sodium 136, Potassium 4.3, Chloride 102, Carbon Dioxide 27.0, Anion Gap 7, BUN 58 H, Creatinine 1.28, Estim Creat Clear Calc 54.89, Est GFR (MDRD) Af Amer 71, Est GFR (MDRD) Non-Af 58 L, BUN/Creatinine Ratio 45.3 H, Glucose 339 H, Calcium 7.8 L, Total Bilirubin 0.60, AST 24, ALT 65 H, Alkaline Phosphatase 69, Total Protein 5.2 L, Albumin 1.2 L, Globulin 4.0, Albumin/G lobulin Ratio 0.3 L 04/19/21 10:10: D-Dimer Quant (PE/DVT) 2.20 H* 04/19/21 10:11: POC Glucose 304 H 04/19/21 17:34: POC Glucose 425 H 04/20/21 00:32: POC Glucose 334 H 04/20/21 04:10: WBC 3.0 L, RBC 3.21 L, Hgb 9.7 L, Hct 30.0 L, MCV 93.5, MCH 30.2, MCHC 32.3 D, RDW Std Deviation 51.4 H, RDW Coeff of Mei 14.8 H, Plt Count 79 L, MPV 11.5, Neut % (Auto) Not Reportable, Absolute Neuts (auto) 2.6, Absolute Lymphs (auto) 0.12 L, Neutrophils % (Manual) 82 H, Band Neutrophils % 7 H, Lymphocytes % (Manual) 4 L, Monocytes % (Manual) 1, Metamyelocytes % 1, Myelocytes % 1 H, Promyelocytes % 3 H, Diff Path Review May foll, Platelet Estimate MOD DEC, Tear Drop Cells 1+ 04/20/21 04:10: Sodium 142, Potassium 4.4, Chloride 106, Carbon Dioxide 31.0, Anion Gap 5, BUN 64 H, Creatinine 1.50 H, Estim Creat Clear Calc 46.84, Est GFR (MDRD) Af Amer 59 L, Est GFR (MDRD) Non-Af 49 L, BUN/Creatinine Ratio 42.7 H, Glucose 279 H, Calcium 8.5 04/20/21 04:10: Triglycerides 296 H Micro: Microbiology 04/17/21 08:55 Sputum, Induced/Lukens Gram Stain - Final 04/17/21 08:55 Sputum, Induced/Lukens Respiratory Culture - Final Stenotrophomonas maltophilia 04/16/21 11:10 Sputum, Expectorated/Coughed Gram Stain - Final 04/16/21 11:10 Sputum, Expectorated/Coughed Respiratory Culture - Final Presumptive C albicans 04/16/21 10:45 Sputum, Expectorated/Coughed Gram Stain - Final 04/16/21 10:45 Sputum, Expectorated/Coughed Respiratory Culture - Final Pseudomonas aeroginosa Presumptive C albicans 04/14/21 00:00 Urine, Clean Catch Legionella Antigen - Final 04/14/21 00:00 Urine, Clean Catch Streptococcus pneumoniae Antigen (M - Final 04/13/21 19:28 Mucosa - Nasopharyngeal Respiratory Panel (PCR) - Final 04/13/21 16:18 Nasal Secretion SARS-CoV-2 Antigen (Rapid) - Final SARS-CoV-2 (COVID 19) Physical Exam Const no apparent distress General Appearance: intubated and patient mechanically ventilated HEENT normocephalic and head/scalp atraumatic Mouth: endotracheal tube in place and OG tube in place Eyes PERRL Neck supple General: trachea midline Chest inspection of chest normal Chest Narrative: No crepitus noted. Resp Auscultation: diminished lung sounds; Negative for rales, rhonchi or wheezes Cardio S1 normal heart sound and S2 normal heart sound Cardio Narrative: IRIR Rate: tachycardic GI normal to inspection, nondistended, normoactive bowel sounds Extremity General Extremity: edema; Negative for clubbing Skin no rashes or lesions noted Neuro Sensorium / Orientation: sedated on vent Charges/Coding Procedures Hospitalists Procedures: 11131 Critial Care 1st Hr
[2021-04-20 06:32] LABS: Platelet Morphology CLUMPED; Red Cell Morphology NORM C+C NORMAL (NORM C&C)
[2021-04-20] MEDS: TITRATION PARAMETER CHANGE 1 EACH IV (06:54)
[2021-04-20] MEDS: Ipratropium/Albuterol Sulfate 3 ML AMPUL.NEB INHALATION (07:06)
[2021-04-20] MEDS: Ascorbic Acid 500 MG Tablet 1000 MG GT (08:10)
[2021-04-20] MEDS: dexAMETHasone 10 MG/ML Vial 6 MG IV (08:10)
[2021-04-20] MEDS: Metoprolol Tartrate 25 MG Tablet GT ×2 (08:11→21:35)
[2021-04-20] MEDS: Senna/Docusate Sodium 1 Tablet 2 TABLET GT ×2 (08:11→21:35)
[2021-04-20] MEDS: Amiodarone 200 MG Tablet GT (08:11)
[2021-04-20] MEDS: Chlorhexidine 15 ML PO ×2 (08:11→21:36)
[2021-04-20] MEDS: Famotidine 20 MG Tablet GT ×2 (08:11→21:35)
[2021-04-20] MEDS: CHLORHEXIDINE GLUC 2% CLOTH 1 EACH TOWELETTE TOPICAL ×2 (08:12→23:16)
[2021-04-20] MEDS: Enoxaparin 30 MG/0.3 ML Syringe SC ×2 (08:12→21:35)
[2021-04-20] MEDS: Vital AF 1.2 Cal Liquid 1,000 ML 65 ML GT (08:12)
[2021-04-20] MEDS: 0.9% Saline Lock 10 ML Syringe IV (08:13)
[2021-04-20] MEDS: levoFLOXacin IV 750 MG/150 ML BAG 100 MG IV (10:02)
--- NOTE | 2021-04-20 10:40 | PN.HOSP_ITS ---
Subjective Subjective Patient seen and examined. He remains intubated and sedated. No active events overnight. RASS score remains -4. Objective Data Objective Data Vital Signs: Vital Signs Temp Pulse Resp BP Pulse Ox 97.0 F L 69 14 97/57 L 96 04/20/21 08:00 04/20/21 10:31 04/20/21 10:31 04/20/21 10:00 04/20/21 10:31 Oxygen Flow Rate (L/min) 90 Oxygen Delivery Method Mechanical Ventilator Weight: 167 lb 12.348 oz Body Mass Index (BMI) 24.0 Intake & Output: Intake and Output for Last 24 Hours 04/18/21 04/19/21 04/20/21 23:59 23:59 23:59 Intake Total 3798.54 / 3859.84 3685.09 / 3981.99 880.91 / 880.91 Output Total 1175 / 1350 1925 / 2425 800 / 800 Balance 2623.54 / 2509.84 1760.09 / 1556.99 80.91 / 80.91 Lab / Micro Data Result Diagrams: 04/20/21 04:10 04/20/21 04:10 Labs: Laboratory Results - last 24 hr 04/19/21 05:00: Diff Path Review Reviewed 04/19/21 10:11: POC Glucose 304 H 04/19/21 17:34: POC Glucose 425 H 04/20/21 00:32: POC Glucose 334 H 04/20/21 04:10: WBC 3.0 L, RBC 3.21 L, Hgb 9.7 L, Hct 30.0 L, MCV 93.5, MCH 30.2, MCHC 32.3 D, RDW Std Deviation 51.4 H, RDW Coeff of Mei 14.8 H, Plt Count 79 L, MPV 11.5, Neut % (Auto) Not Reportable, Absolute Neuts (auto) 2.6, Absolute Lymphs (auto) 0.12 L, Neutrophils % (Manual) 82 H, Band Neutrophils % 7 H, Lymphocytes % (Manual) 4 L, Monocytes % (Manual) 1, Metamyelocytes % 1, Myelocytes % 1 H, Promyelocytes % 3 H, Diff Path Review May foll, Platelet Estimate MOD DEC, Plt Morphology Comment CLUMPED, RBC Morphology NORM C+C, Tear Drop Cells 1+ 04/20/21 04:10: Sodium 142, Potassium 4.4, Chloride 106, Carbon Dioxide 31.0, Anion Gap 5, BUN 64 H, Creatinine 1.50 H, Estim Creat Clear Calc 46.84, Est GFR (MDRD) Af Amer 59 L, Est GFR (MDRD) Non-Af 49 L, BUN/Creatinine Ratio 42.7 H, Glucose 279 H, Calcium 8.5 04/20/21 04:10: Triglycerides 296 H Micro: Microbiology 04/17/21 08:55 Sputum, Induced/Lukens Gram Stain - Final 04/17/21 08:55 Sputum, Induced/Lukens Respiratory Culture - Final Stenotrophomonas maltophilia 04/16/21 11:10 Sputum, Expectorated/Coughed Gram Stain - Final 04/16/21 11:10 Sputum, Expectorated/Coughed Respiratory Culture - Final Presumptive C albicans 04/16/21 10:45 Sputum, Expectorated/Coughed Gram Stain - Final 04/16/21 10:45 Sputum, Expectorated/Coughed Respiratory Culture - Final Pseudomonas aeroginosa Presumptive C albicans 04/14/21 00:00 Urine, Clean Catch Legionella Antigen - Final 04/14/21 00:00 Urine, Clean Catch Streptococcus pneumoniae Antigen (M - Final 04/13/21 19:28 Mucosa - Nasopharyngeal Respiratory Panel (PCR) - Final 04/13/21 16:18 Nasal Secretion SARS-CoV-2 Antigen (Rapid) - Final SARS-CoV-2 (COVID 19) Physical Exam Const Constitutional Narrative: intubated, sedated, RASS score is -4 General Appearance: cooperative Exam Limitations: altered mental status HEENT normocephalic, head/scalp atraumatic and moist oral mucous membranes Head and Scalp: normocephalic Eyes PERRL, EOMs intact bilaterally and conjunctivae normal Neck no lymphadenopathy, supple and no JVD Resp Resp Narrative: diminished breath sounds posteriorly, bibasally. No wheezes or crackles. intubated and sedated Effort and Inspection: tachypneic Auscultation: diminished lung sounds Cardio regular rate, regular rhythm, S1 normal heart sound, S2 normal heart sound and no murmurs GI normal to inspection, nondistended, normoactive bowel sounds, soft to palpation, non-tender and non-distended; Negative for hepatosplenomegaly Extremity normal to inspection, full ROM and no clubbing, cyanosis or edema General Extremity: edema; Negative for clubbing or cyanosis Peripheral Pulses: Yes pulses 2+ throughout Skin no rashes or lesions noted Neuro Neuro Narrative: intubated, sedated, RASS score is -4 Psych Psych Narrative: intubated and sedated Appearance: appropriate Assessment & Plan Assessment/Plan (1) Acute respiratory failure with hypoxia: PLAN: #Acute hypoxic respiratory failure due to COVID 19 pneumonia * still remains intubated and sedated. remains on levophed for hemodynamic support * has completed a course of remdesivir. Remains on decadron * diuretics held o/a of Cr trending up * Cr trended up to 1.5 today. * critical care on board * titrate oxygen to maintain sats >90% * breathing treatment with bronchodilators. * on IV zosyn * also on vitamin C and zinc * sputum culture positive for ?Pseudomonas * not a candidate for baricitinib or tocilizumab * #Septic shock due to Covid 19 pneumonia * remains on levophed. * titrate levophed to maintain MAP >65 * # COVID 19 pneumonia: as above #Hypokalemia: resolved #Thromobocytopenia * Platelets have dropped further down to 79 today. * if platelets drop some more, will need to consider stopping lovenox. * #Afib: * meds on hold o/a of hypotension. * not on full dose anticoagulation; may be at increased risk for brain bleed with full dose anticoagulation due to his brain mass. #GREG: Cr is 1.5 today. Likely pre-renal in setting of shock. Will trend. #Hypertension: on metoprolol and losartan; hold as patient now on levophed for shock. #Brain mass * recently diagnosed with a brain mass at [facility] which he elected not to have worked up there. 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 DVT prophylaxis: lovenox 30mg bid Charges/Coding Visit Charges Inpatient E&M: 14030 Subs Hosp L3
[2021-04-20] MEDS: Propofol 10MG/Ml 1,000 MG/100 ML Bottle 22.8 MG CONT INF ×3 (10:48→20:00)
[2021-04-20 11:45] LABS: Bedside Glucose 276 mg/dL (70-110)
--- NOTE | 2021-04-20 12:43 | PCM.CONS.R ---
Assessment & Plan Assessment/Plan (1) GREG (acute kidney injury): (2) Septic shock: (3) Pneumonia due to COVID-19 virus: (4) Acute respiratory failure with hypoxia: PLAN: -The patient has normal baseline renal function. -GREG is likely due to prerenal azotemia from decreased renal perfusion related to septic shock. The patient has a high risk for progression to ischemic ATN as well. -I will check urinalysis and urine indices. I doubt if the patient has obstructive GREG. However, if renal function continues to decline in the next 24 to 48 hours, I will check renal ultrasound as well. -I agree with the current treatment with effort to keep MAP above 65 mmHg to help perfuse vital organs. -Although renal function has declined in the last 24 hours, there is no hyperkalemia, acidosis, or significant volume overload. The patient is still nonoliguric without requiring diuretic. -Therefore, there is no need for kidney replacement therapy today. -However, since the patient is requiring IV pressor, I will continue to monitor renal function closely. -The current medications are reviewed. There are appropriate dose for the patient's estimated creatinine clearance. HPI Consult Data Date of Consult: 04/20/21 HPI Narrative Reason for Consultation: GREG HPI Narrative: The patient is a 75-year-old man with past history of hypertension, atrial fibrillation, and brain mass. The patient is on dexamethasone at baseline for this newly diagnosed right brain mass. The patient presented to the hospital on 04/13/2021 with headache, anosmia, and shortness of breath. The patient was subsequently diagnosed with COVID-19 pneumonia. He is now intubated, so history is obtained by chart review and discussion with other clinicians. Nephrology is asked to see the patient because of acute kidney injury. The patient has normal baseline renal function with serum creatinine of around 0.96 to 1.10 mg/dL on 04/17/2021. The patient is currently intubated and is on 18 mics per minute of norepinephrine drip. He is sedated with fentanyl and propofol. Serum creatinine has increased from 1.10 mg/dL on 04/17/2021 up to 1.50 mg/dL today (04/20/2021). The patient is not oliguric. He made 1925 mL of urine in the last 24 hours. [facility] Medical History Asthma Atrial fibrillation Brain mass Cancer COPD (chronic obstructive pulmonary disease) Former smoker Hypertension Kidney stones Prostate cancer Vision loss of left eye Vision loss of right eye Home Medications amiodarone 200 mg PO DAILY 03/15/21 [History Last Taken 04/13/21] amlodipine 10 mg PO DAILY 03/15/21 [History Last Taken 04/13/21] losartan 100 mg PO DAILY 03/15/21 [History Last Taken 04/13/21] metoprolol tartrate 25 mg PO QHS 03/15/21 [History Last Taken 04/12/21] multivitamin 1 tab PO DAILY 03/15/21 [History Last Taken 04/13/21] potassium chloride 10 meq PO QHS 03/15/21 [History Last Taken 04/12/21] dexamethasone 4 mg PO BID 04/13/21 [History Last Taken 04/13/21] Allergy/AdvReac Type Severity Reaction Status Date / Time flecainide Allergy Other Verified 04/13/21 14:35 adhesive tape AdvReac WELTS WITH Verified 04/13/21 14:34 PROLONGED USE Family History Father Jenny Gehrig disease Cancer Mother Cancer Surgical History no surgical history Social History household members: spouse housing: house Smoking Status: Former smoker alcohol intake: never substance use type: does not use ROS ROS Narrative Unable to obtain because the patient is on a ventilator and is sedated. Physical Exam Narrative General: Ill-appearing man who appears to be stated age. He is on ventilator. HEENT: Normocephalic, atraumatic. The patient is intubated. PERRLA. Neck: Supple, no JVD. Heart: Normal S1, S2. No rubs. Lungs: Coarse breath sound bilaterally. Abdomen: Normal bowel sound, soft, nontender no guarding or rebound. Extremity: 2+ lower extremity edema. No clubbing or cyanosis. Neurologic: No focal neurologic deficit. The patient is sedated. Lab / Micro Data Result Diagrams: 04/20/21 04:10 04/20/21 04:10 Labs: Laboratory Results - last 24 hr 04/19/21 05:00: Diff Path Review Reviewed 04/19/21 17:34: POC Glucose 425 H 04/20/21 00:32: POC Glucose 334 H 04/20/21 04:10: WBC 3.0 L, RBC 3.21 L, Hgb 9.7 L, Hct 30.0 L, MCV 93.5, MCH 30.2, MCHC 32.3 D, RDW Std Deviation 51.4 H, RDW Coeff of Mei 14.8 H, Plt Count 79 L, MPV 11.5, Neut % (Auto) Not Reportable, Absolute Neuts (auto) 2.6, Absolute Lymphs (auto) 0.12 L, Neutrophils % (Manual) 82 H, Band Neutrophils % 7 H, Lymphocytes % (Manual) 4 L, Monocytes % (Manual) 1, Metamyelocytes % 1, Myelocytes % 1 H, Promyelocytes % 3 H, Diff Path Review May foll, Platelet Estimate MOD DEC, Plt Morphology Comment CLUMPED, RBC Morphology NORM C+C, Tear Drop Cells 1+ 04/20/21 04:10: Sodium 142, Potassium 4.4, Chloride 106, Carbon Dioxide 31.0, Anion Gap 5, BUN 64 H, Creatinine 1.50 H, Estim Creat Clear Calc 46.84, Est GFR (MDRD) Af Amer 59 L, Est GFR (MDRD) Non-Af 49 L, BUN/Creatinine Ratio 42.7 H, Glucose 279 H, Calcium 8.5 04/20/21 04:10: Triglycerides 296 H 04/20/21 11:09: POC Glucose 276 H Micro: Microbiology 04/17/21 08:55 Sputum, Induced/Lukens Gram Stain - Final 04/17/21 08:55 Sputum, Induced/Lukens Respiratory Culture - Final Stenotrophomonas maltophilia
[2021-04-20 13:42] LABS: Albumin, Serum 1.3 g/dL (3.2-5.0); Phosphorus 1.9 mg/dL (2.5-4.9)
[2021-04-20 14:35] LABS: Pathologist Review Reviewed
[2021-04-20 14:46] LABS: Urine Sodium < 5 mmol/L (Not Establ.)
[2021-04-20 15:21] LABS: Osmolality, Urine 710 mOsm/KG
[2021-04-20 18:15] LABS: Bedside Glucose 396 mg/dL (70-110)
[2021-04-20] MEDS: Potassium Chloride Oral Soln 20 MEQ/15 ML UDC 10 MEQ GT (21:35)
--- NOTE | 2021-04-20 21:51 | PCM.HOSP.N ---
Hospitalist Note Patient with persistent tachycardia with heart rates in the 130s to 140s. On amiodarone 200 mg daily. Blood pressure soft with heart rates elevated. Will give amnio bolus 150 mg x 1 dose and continue to monitor on telemetry.
[2021-04-20 23:26] LABS: Bedside Glucose 347 mg/dL (70-110)
[2021-04-21] VITALS (47 sets, daily range): BP systolic 84–159; BP diastolic 48–108; PULSE 87–142; RESP 15–117; TEMP 36.6–37.7; O2SAT 89–95
[2021-04-21] MEDS: Propofol 10MG/Ml 1,000 MG/100 ML Bottle 22.8 MG CONT INF
[2021-04-21] MEDS: 0.9% Saline Lock 10 ML Syringe IV (01:21)
[2021-04-21 04:34] LABS: Hematocrit 30.5 % (40-54); Mean Corp Hgb Conc 32.8 g/dL (32-36); Mean Corpuscular Hgb 30.6 pg (27.0-32.0); Mean Corpuscular Volume 93.3 fL (80-94); Mean Platelet Vol. 11.3 fl (6.2-12.0); POSITIVE COUNT YES; POSITIVE DIFFERENTIAL YES; POSITIVE MORPHOLOGY YES; Platelet Count 80 K/mm3 (150-450); RBC Distribution Width CV 14.9 % (11.6-14.6); RBC Distribution Width SD 51.8 fl (35.1-43.9); Red Blood Count 3.27 M/mm3 (4.6-6.2); White Blood Count 4.9 K/mm3 (4.4-11.0)
[2021-04-21 04:50] LABS: Albumin, Serum 1.2 g/dL (3.2-5.0); BUN 65 mg/dL (7-18); BUN/Creat Ratio 44.2 RATIO (10-20); Calcium,Total 8.8 mg/dL (8.5-10.1); Chloride 106 mmol/L (98-107); Creatinine, Serum 1.47 mg/dL (0.70-1.30); EST Glomerular Filtration Rate 50 mL/min (>60); Est Glom Filt Rate - Afr Amer 60 mL/min (>60); Estimated Creatinine Clearance 48.17 ml/min; Glucose 294 mg/dL (74-106); Phosphorus 1.7 mg/dL (2.5-4.9); Potassium 4.5 mmol/L (3.5-5.1); Sodium Level 141 mmol/L (136-145)
[2021-04-21 05:04] LABS: Differential Indicated MANUAL DIFF
--- NOTE | 2021-04-21 05:30 | PCM.PN.INT ---
Assessment & Plan Assessment/Plan (1) Pneumonia due to COVID-19 virus: (2) Acute respiratory failure with hypoxia: PLAN: RECOMMENDATIONS: 1. Continue to wean FiO2 and PEEP to maintain saturations at or above 90%. 2. Continue antimicrobials as ordered. 3. Continue Decadron and Lovenox. 4. Continue tube feeds as tolerated. 5. Continue appropriate GI prophylaxis. 6. Obtain repeat chest x-ray this morning. 7. Phosphorus repletion as ordered. Check magnesium as well. IMPRESSIONS: 1. Acute hypoxic respiratory failure secondary to COVID-19 and pseudomonal/stenotrophomonas pneumonia The patient has had rapid worsening in his oxygenation status. The patient had essentially been BiPAP dependent for 3 straight days without any meaningful clinical improvement. Therefore, the decision was made to proceed with intubation on the morning of April 17. Plan to continue supportive measures and wean FiO2 to maintain oxygen saturations at or above 90%. The patient has completed a treatment course of remdesivir and will remain on Decadron and Lovenox. The patient may have an underlying component of obstructive lung disease as well. Continue antimicrobials as ordered along with vitamin C and zinc. The patient was not a candidate for baricitinib or tocilizumab. The patient is unable to receive diuretic therapy due to worsening renal insufficiency. 2. Acute kidney injury Likely prerenal in etiology. Continue to monitor urine output. No current indication for renal replacement therapy. Nephrology is currently following. We will continue to hold diuretics for now. 3. Distributive shock The patient became hypotensive as a consequence of sedative medication use. Therefore, the patient will be continued on low-dose vasopressor support to maintain hemodynamic stability. 4. Suspected CHF/A. fib Continue current medical management. The patient appears to be in rate controlled atrial fibrillation. The patient is on DVT prophylaxis with Lovenox, but may be at increased risk for full dose therapeutic anticoagulation given his brain mass. 5. Hypophosphatemia Electrolyte repletion as ordered. Recheck levels in the morning. 6. Recent diagnosis of brain mass/advanced age/hypertension/history of prostate cancer/unvaccinated status Complicates care, management, recovery and prognosis. Continue medical management as noted above. Okay to continue tube feeds as tolerated. TIME: 33 minutes of critical care time, inclusive of procedures, was spent addressing the patient's acute hypoxemic respiratory failure secondary to COVID-19 pneumonia, acute kidney injury, distributive shock, atrial fibrillation, review of all data and collaboration with care team. ([id number]) Subjective Subjective The patient was seen and examined at the bedside this morning. Events from the last 24 hours have been reviewed. The patient is currently afebrile. Levophed was weaned off this morning just after 5 AM. Overnight, the patient was given an amiodarone bolus and started on a continuous infusion due to persistent tachycardia. The patient remains on assist control mode mechanical ventilation with an FiO2 requirement of 75% and PEEP of 10. The patient remains sedated on propofol and fentanyl. He is currently tolerating tube feeds. The patient is documented to be overall net +5.5 L for the hospital admission. The patient has completed a treatment course of remdesivir. He was not felt to be a candidate for baricitinib or tocilizumab. The patient remains on Decadron, antimicrobials and prophylactic Lovenox. Hemoglobin is stable at 10.0. Platelet count is low at 80,000. BUN remains elevated at 65 with a creatinine of 1.47. Objective Data Objective Data The patient's most recent lab work, culture data and imaging studies have all been personally reviewed. Rapid coronavirus antigen testing was positive on April 13. Strep and urine Legionella antigens were negative. Respiratory viral panel was negative. The patient's sputum cultures have demonstrated growth of Pseudomonas and stenotrophomonas. Vital Signs: Vital Signs Temp Pulse Resp BP Pulse Ox 98.3 F 137 H 25 H 105/65 91 04/21/21 00:00 04/21/21 04:48 04/21/21 04:48 04/21/21 04:05 04/21/21 04:48 Oxygen Flow Rate (L/min) 90 Oxygen Delivery Method Mechanical Ventilator Weight: 76.1 kg Body Mass Index (BMI) 24.0 Intake & Output: Intake and Output for Last 24 Hours 04/19/21 04/20/21 04/21/21 23:59 23:59 23:59 Intake Total 3685.09 / 3981.99 3391.26 / 3440.46 304.4 / 304.4 Output Total 1925 / 2425 1725 / 1725 Balance 1760.09 / 1556.99 1666.26 / 1715.46 304.4 / 304.4 Lab / Micro Data Attestation: I reviewed the patient's lab results. Result Diagrams: 04/21/21 04:10 04/21/21 04:10 Labs: Laboratory Results - last 24 hr 04/20/21 04:10: Diff Path Review Reviewed, Plt Morphology Comment CLUMPED, RBC Morphology NORM C+C 04/20/21 04:10: Sodium Cancelled, Potassium Cancelled, Chloride Cancelled, Carbon Dioxide Cancelled, BUN Cancelled, Creatinine Cancelled, Est GFR (MDRD) Af Amer Cancelled, Est GFR (MDRD) Non-Af Cancelled, BUN/Creatinine Ratio Cancelled, Glucose Cancelled, Calcium Cancelled, Phosphorus 1.9 L, Albumin 1.3 L 04/20/21 11:09: POC Glucose 276 H 04/20/21 14:15: Urine Osmolality 710, Ur Random Sodium < 5 04/20/21 18:01: POC Glucose 396 H 04/20/21 23:12: POC Glucose 347 H 04/21/21 04:10: Sodium 141, Potassium 4.5, Chloride 106, Carbon Dioxide 32.0, BUN 65 H, Creatinine 1.47 H, Estim Creat Clear Calc 48.17, Est GFR (MDRD) Af Amer 60, Est GFR (MDRD) Non-Af 50 L, BUN/Creatinine Ratio 44.2 H, Glucose 294 H, Calcium 8.8, Phosphorus 1.7 L, Albumin 1.2 L 04/21/21 04:10: WBC 4.9, RBC 3.27 L, Hgb 10.0 L, Hct 30.5 L, MCV 93.3, MCH 30.6, MCHC 32.8, RDW Std Deviation 51.8 H, RDW Coeff of Mei 14.9 H, Plt Count 80 L, MPV 11.3, Neut % (Auto) Not Reportable Micro: Microbiology 04/17/21 08:55 Sputum, Induced/Lukens Gram Stain - Final 04/17/21 08:55 Sputum, Induced/Lukens Respiratory Culture - Final Stenotrophomonas maltophilia 04/16/21 11:10 Sputum, Expectorated/Coughed Gram Stain - Final 04/16/21 11:10 Sputum, Expectorated/Coughed Respiratory Culture - Final Presumptive C albicans 04/16/21 10:45 Sputum, Expectorated/Coughed Gram Stain - Final 04/16/21 10:45 Sputum, Expectorated/Coughed Respiratory Culture - Final Pseudomonas aeroginosa Presumptive C albicans 04/14/21 00:00 Urine, Clean Catch Legionella Antigen - Final 04/14/21 00:00 Urine, Clean Catch Streptococcus pneumoniae Antigen (M - Final 04/13/21 19:28 Mucosa - Nasopharyngeal Respiratory Panel (PCR) - Final 04/13/21 16:18 Nasal Secretion SARS-CoV-2 Antigen (Rapid) - Final SARS-CoV-2 (COVID 19) Physical Exam Const no apparent distress Constitutional Narrative: No ventilator dyssynchrony. General Appearance: ill appearing, intubated and patient mechanically ventilated HEENT normocephalic and head/scalp atraumatic Mouth: endotracheal tube in place and OG tube in place Eyes PERRL Neck supple General: trachea midline Chest inspection of chest normal Chest Narrative: No crepitus noted. Resp Auscultation: diminished lung sounds; Negative for rales, rhonchi or wheezes Cardio S1 normal heart sound and S2 normal heart sound Cardio Narrative: IRIR Rate: tachycardic GI normal to inspection, nondistended, normoactive bowel sounds Extremity General Extremity: edema; Negative for clubbing Skin no rashes or lesions noted Neuro Sensorium / Orientation: sedated on vent Charges/Coding Procedures Hospitalists Procedures: 38821 Critial Care 1st Hr
[2021-04-21] MEDS: Propofol 10MG/Ml 1,000 MG/100 ML Bottle 11.4 MG CONT INF ×3 (05:45→18:01)
[2021-04-21 05:52] LABS: Lymphocyte 10 % (19-41); Metamyelocyte 5 % (0-1); Neutrophil-Band 5 % (0-5); Neutrophil-Segmented 79 % (47-70); Other WBC Type 1 %; Total Cells Counted 100 (MANUAL DIFF)
[2021-04-21 05:54] LABS: Absolute Lymphocyte Count 0.49 X10^3/uL (0.83-4.51); Absolute Neutrophil Count 4.4 X10^3/uL (2.0-7.7); Platelet Morphology CLUMPED; Red Cell Morphology NORM C+C NORMAL (NORM C&C)
[2021-04-21 06:02] LABS: Platelet Estimate SLT DEC (ADEQ)
--- NOTE | 2021-04-21 06:07 | RAD_ITS ---
STUDY: X-RAY CHEST REASON FOR EXAM: Male, 75 years old. Respiratory Failure TECHNIQUE: Single AP portable view of the chest. COMPARISON: 04/17/2021 FINDINGS: Interval placement of right upper extremity PICC with tip the catheter overlying the superior vena cava. Endotracheal tube and nasogastric tube both which are unchanged. Increase in alveolar opacity in both lungs consistent with worsening bilateral pneumonia. There is no demonstrated pleural abnormality. Normal size heart. Normal mediastinum and liane. Normal visualized pulmonary arteries. Normal visualized aortic arch and descending thoracic aorta. Normal visualized thoracic spine. Normal visualized ribs, clavicles, and shoulders. There is no demonstrated abnormality of the visualized soft tissue structures of the upper abdomen. RAD/Chest 1 View (Portable) IMPRESSION: 1. Interval placement of a right upper extremity PICC with tip the catheter overlying the superior vena cava. 2. Endotracheal tube and nasogastric tube both which are unchanged. 3. Worsening bilateral pneumonia. Electronically Signed: Velasquez Lloyd MD at 8:51 EDT Tel , Service support ,
[2021-04-21 06:33] LABS: Magnesium 2.5 mg/dL (1.6-2.6)
[2021-04-21] MEDS: Insulin Lispro 100 UNIT/ML INSULN.PEN SC ×4 (06:50→22:53)
[2021-04-21 06:56] LABS: Bedside Glucose 330 mg/dL (70-110)
--- NOTE | 2021-04-21 07:13 | PN.HOSP_ITS ---
Subjective Subjective Patient seen and examined. He remains intubated and sedated. He has been weaned off levophed. HE still remains tachycardic though, and had to be started on amiodarone drip overnight. HE is now on FiO2 of 75% and PEEP of 10. [place] [address] [place]. Objective Data Objective Data Vital Signs: Vital Signs Temp Pulse Resp BP Pulse Ox 98.7 F 137 H 15 152/71 H 90 04/21/21 06:00 04/21/21 07:05 04/21/21 07:05 04/21/21 07:05 04/21/21 07:05 Oxygen Flow Rate (L/min) 90 Oxygen Delivery Method Mechanical Ventilator Weight: 170 lb 3.15 oz Body Mass Index (BMI) 24.0 Intake & Output: Intake and Output for Last 24 Hours 04/19/21 04/20/21 04/21/21 23:59 23:59 23:59 Intake Total 3685.09 / 3981.99 3391.26 / 3440.46 525.95 / 525.95 Output Total 1925 / 2425 1725 / 1725 475 / 475 Balance 1760.09 / 1556.99 1666.26 / 1715.46 50.95 / 50.95 Lab / Micro Data Result Diagrams: 04/21/21 04:10 04/21/21 04:10 Labs: Laboratory Results - last 24 hr 04/20/21 04:10: Diff Path Review Reviewed 04/20/21 04:10: Sodium Cancelled, Potassium Cancelled, Chloride Cancelled, Carbon Dioxide Cancelled, BUN Cancelled, Creatinine Cancelled, Est GFR (MDRD) Af Amer Cancelled, Est GFR (MDRD) Non-Af Cancelled, BUN/Creatinine Ratio Cancelled, Glucose Cancelled, Calcium Cancelled, Phosphorus 1.9 L, Albumin 1.3 L 04/20/21 11:09: POC Glucose 276 H 04/20/21 14:15: Urine Osmolality 710, Ur Random Sodium < 5 04/20/21 18:01: POC Glucose 396 H 04/20/21 23:12: POC Glucose 347 H 04/21/21 04:10: Sodium 141, Potassium 4.5, Chloride 106, Carbon Dioxide 32.0, BUN 65 H, Creatinine 1.47 H, Estim Creat Clear Calc 48.17, Est GFR (MDRD) Af Amer 60, Est GFR (MDRD) Non-Af 50 L, BUN/Creatinine Ratio 44.2 H, Glucose 294 H, Calcium 8.8, Phosphorus 1.7 L, Albumin 1.2 L 04/21/21 04:10: WBC 4.9, RBC 3.27 L, Hgb 10.0 L, Hct 30.5 L, MCV 93.3, MCH 30.6, MCHC 32.8, RDW Std Deviation 51.8 H, RDW Coeff of Mei 14.9 H, Plt Count 80 L, MPV 11.3, Neut % (Auto) Not Reportable, Absolute Neuts (auto) 4.4, Absolute Lymphs (auto) 0.49 L, Total Counted 100, Neutrophils % (Manual) 79 H, Band Neutrophils % 5, Lymphocytes % (Manual) 10 L, Metamyelocytes % 5 H, Other Cells % 1, Diff Path Review May foll, Platelet Estimate SLT DEC, Plt Morphology Comment CLUMPED, RBC Morphology NORM C+C 04/21/21 04:10: Magnesium 2.5 04/21/21 06:49: POC Glucose 330 H Micro: Microbiology 04/17/21 08:55 Sputum, Induced/Lukens Gram Stain - Final 04/17/21 08:55 Sputum, Induced/Lukens Respiratory Culture - Final Stenotrophomonas maltophilia 04/16/21 11:10 Sputum, Expectorated/Coughed Gram Stain - Final 04/16/21 11:10 Sputum, Expectorated/Coughed Respiratory Culture - Final Presumptive C albicans 04/16/21 10:45 Sputum, Expectorated/Coughed Gram Stain - Final 04/16/21 10:45 Sputum, Expectorated/Coughed Respiratory Culture - Final Pseudomonas aeroginosa Presumptive C albicans 04/14/21 00:00 Urine, Clean Catch Legionella Antigen - Final 04/14/21 00:00 Urine, Clean Catch Streptococcus pneumoniae Antigen (M - Final 04/13/21 19:28 Mucosa - Nasopharyngeal Respiratory Panel (PCR) - Final 04/13/21 16:18 Nasal Secretion SARS-CoV-2 Antigen (Rapid) - Final SARS-CoV-2 (COVID 19) Physical Exam Const Constitutional Narrative: intubated, sedated, RASS score is -4 Exam Limitations: altered mental status HEENT normocephalic and head/scalp atraumatic Head and Scalp: normocephalic Eyes PERRL, EOMs intact bilaterally and conjunctivae normal Neck no lymphadenopathy, supple and no JVD Resp normal respiratory effort, no retractions and no use of accessory muscles Resp Narrative: diminished breath sounds posteriorly, bibasally. No wheezes or crackles. intubated and sedated Effort and Inspection: tachypneic Auscultation: diminished lung sounds Cardio regular rhythm, S1 normal heart sound, S2 normal heart sound and no murmurs GI normal to inspection, nondistended, normoactive bowel sounds, soft to palpation, non-tender and non-distended; Negative for hepatosplenomegaly Extremity normal to inspection, full ROM and no clubbing, cyanosis or edema General Extremity: edema; Negative for clubbing or cyanosis Skin no rashes or lesions noted Neuro Neuro Narrative: intubated, sedated, RASS score is -4 Psych Psych Narrative: intubated and sedated Appearance: appropriate Assessment & Plan Assessment/Plan (1) Acute respiratory failure with hypoxia: PLAN: #Acute hypoxic respiratory failure due to COVID 19 pneumonia * still remains intubated and sedated. weaned off levophed. * has completed a course of remdesivir. Remains on decadron * diuretics held o/a of Cr trending up * critical care on board * titrate oxygen to maintain sats >90% * breathing treatment with bronchodilators. * on IV zosyn * also on vitamin C and zinc * sputum culture positive for ?Pseudomonas * not a candidate for baricitinib or tocilizumab * #Septic shock due to Covid 19 pneumonia * now weaned off levophed. * # COVID 19 pneumonia: as above #Hypokalemia: resolved #Thromobocytopenia * Platelets are 80,000 today. * if platelets drop some more, will need to consider stopping lovenox. * #Afib: * started on amiodarone drip overnight o/a of afib with RVR * not on full dose anticoagulation; may be at increased risk for brain bleed with full dose anticoagulation due to his brain mass. #GREG: * Cr is 1.47 today. Likely pre-renal in setting of shock. * nephrology on board. No need for renal replacement therapy now, as per nephrology #Hypertension: on metoprolol and losartan which were held o/ a of shock. #Brain mass * recently diagnosed with a brain mass at [facility] which he elected not to have worked up there. 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 DVT prophylaxis: lovenox 30mg bid Charges/Coding Visit Charges Inpatient E&M: 01985 Subs Hosp L3
[2021-04-21] MEDS: Senna/Docusate Sodium 1 Tablet 2 TABLET GT ×2 (08:55→19:58)
[2021-04-21] MEDS: Metoprolol Tartrate 50 MG Tablet GT ×2 (08:55→19:58)
[2021-04-21] MEDS: Famotidine 20 MG Tablet GT ×2 (08:55→19:58)
[2021-04-21] MEDS: Enoxaparin 30 MG/0.3 ML Syringe SC ×2 (08:56→19:58)
[2021-04-21] MEDS: dexAMETHasone 10 MG/ML Vial 6 MG IV (08:56)
[2021-04-21] MEDS: levoFLOXacin IV 750 MG/150 ML BAG 100 MG IV (10:32)
[2021-04-21] MEDS: Chlorhexidine 15 ML PO ×2 (10:33→19:59)
[2021-04-21] MEDS: Vital AF 1.2 Cal Liquid 1,000 ML 65 ML GT (13:19)
--- NOTE | 2021-04-21 15:34 | EKG12_ITS ---
Test Reason : ARRYTHMIA Blood Pressure : / mmHG Vent. Rate : 138 BPM Atrial Rate : 138 BPM P-R Int : 000 ms QRS Dur : 154 ms QT Int : 346 ms P-R-T Axes : 000 -51 126 degrees QTc Int : 524 ms Atrial fibrillation Left axis deviation Left bundle branch block Abnormal ECG When compared with ECG of 13-APR-2021 16:15, Atrial fibrillation has replaced Sinus rhythm Vent. rate has increased BY 56 BPM Confirmed by FREDIS FULLER, JOSE ([id number]), photograph editor TREVON CARTER ([id number]) on 04/24/2021 10:02:51 AM Referred By: Courtney Martinez Confirmed By:JOSE MCNEAL MD
--- NOTE | 2021-04-21 17:34 | PCM.PN.REN ---
Subjective Subjective no new events Objective Data Objective Data Vital Signs: Vital Signs Temp Pulse Resp BP Pulse Ox 97.8 F 140 H 21 H 125/70 H 92 04/21/21 16:00 04/21/21 17:00 04/21/21 17:00 04/21/21 17:00 04/21/21 17:00 Oxygen Flow Rate (L/min) 90 Oxygen Delivery Method Mechanical Ventilator Weight: 77.2 kg Body Mass Index (BMI) 24.0 Intake & Output: Intake and Output for Last 24 Hours 04/19/21 04/20/21 04/21/21 23:59 23:59 23:59 Intake Total 3685.09 / 3981.99 3391.26 / 3440.46 2407.45 / 2407.45 Output Total 1925 / 2425 1725 / 1725 1125 / 1125 Balance 1760.09 / 1556.99 1666.26 / 1715.46 1282.45 / 1282.45 Lab / Micro Data Result Diagrams: 04/21/21 04:10 04/21/21 04:10 Labs: Laboratory Results - last 24 hr 04/20/21 18:01: POC Glucose 396 H 04/20/21 23:12: POC Glucose 347 H 04/21/21 04:10: Sodium 141, Potassium 4.5, Chloride 106, Carbon Dioxide 32.0, BUN 65 H, Creatinine 1.47 H, Estim Creat Clear Calc 48.17, Est GFR (MDRD) Af Amer 60, Est GFR (MDRD) Non-Af 50 L, BUN/Creatinine Ratio 44.2 H, Glucose 294 H, Calcium 8.8, Phosphorus 1.7 L, Albumin 1.2 L 04/21/21 04:10: WBC 4.9, RBC 3.27 L, Hgb 10.0 L, Hct 30.5 L, MCV 93.3, MCH 30.6, MCHC 32.8, RDW Std Deviation 51.8 H, RDW Coeff of Mei 14.9 H, Plt Count 80 L, MPV 11.3, Neut % (Auto) Not Reportable, Absolute Neuts (auto) 4.4, Absolute Lymphs (auto) 0.49 L, Total Counted 100, Neutrophils % (Manual) 79 H, Band Neutrophils % 5, Lymphocytes % (Manual) 10 L, Metamyelocytes % 5 H, Other Cells % 1, Diff Path Review May foll, Platelet Estimate SLT DEC, Plt Morphology Comment CLUMPED, RBC Morphology NORM C+C 04/21/21 04:10: Magnesium 2.5 04/21/21 06:49: POC Glucose 330 H Micro: Microbiology 04/17/21 08:55 Sputum, Induced/Lukens Gram Stain - Final 04/17/21 08:55 Sputum, Induced/Lukens Respiratory Culture - Final Stenotrophomonas maltophilia 04/16/21 11:10 Sputum, Expectorated/Coughed Gram Stain - Final 04/16/21 11:10 Sputum, Expectorated/Coughed Respiratory Culture - Final Presumptive C albicans 04/16/21 10:45 Sputum, Expectorated/Coughed Gram Stain - Final 04/16/21 10:45 Sputum, Expectorated/Coughed Respiratory Culture - Final Pseudomonas aeroginosa Presumptive C albicans 04/14/21 00:00 Urine, Clean Catch Legionella Antigen - Final 04/14/21 00:00 Urine, Clean Catch Streptococcus pneumoniae Antigen (M - Final 04/13/21 19:28 Mucosa - Nasopharyngeal Respiratory Panel (PCR) - Final 04/13/21 16:18 Nasal Secretion SARS-CoV-2 Antigen (Rapid) - Final SARS-CoV-2 (COVID 19) Radiography Diagnostic Testing: Radiology Impression Chest X-Ray 04/21/21 06:07 IMPRESSION: 1. Interval placement of a right upper extremity PICC with tip the catheter overlying the superior vena cava. 2. Endotracheal tube and nasogastric tube both which are unchanged. 3. Worsening bilateral pneumonia. Electronically Signed: Velasquez Lloyd MD at 8:51 EDT Tel , Service support , Physical Exam Narrative General: Ill-appearing man who appears to be stated age. He is on ventilator. HEENT: Normocephalic, atraumatic. The patient is intubated. PERRLA. Neck: Supple, no JVD. Heart: Normal S1, S2. No rubs. Lungs: Coarse breath sound bilaterally. Abdomen: Normal bowel sound, soft, nontender no guarding or rebound. Extremity: 2+ lower extremity edema. No clubbing or cyanosis. Neurologic: No focal neurologic deficit. The patient is sedated. Assessment & Plan Assessment/Plan (1) GREG (acute kidney injury): (2) Septic shock: (3) Pneumonia due to COVID-19 virus: (4) Acute respiratory failure with hypoxia: PLAN: -The patient has normal baseline renal function. -GREG is likely due to prerenal azotemia from decreased renal perfusion related to septic shock. The patient has a high risk for progression to ischemic ATN as well. -cr stable
[2021-04-21 17:46] LABS: Bedside Glucose 370 mg/dL (70-110)
[2021-04-21 19:26] LABS: Bedside Glucose 325 mg/dL (70-110)
[2021-04-22] VITALS (39 sets, daily range): BP systolic 106–147; BP diastolic 53–80; PULSE 13–141; RESP 17–30; TEMP 37–38.2; O2SAT 89–94
[2021-04-22] MEDS: Propofol 10MG/Ml 1,000 MG/100 ML Bottle 11.4 MG CONT INF ×4 (00:37→16:19)
[2021-04-22 01:46] LABS: Bedside Glucose 313 mg/dL (70-110)
[2021-04-22] MEDS: Vital AF 1.2 Cal Liquid 1,000 ML 65 ML GT ×2 (04:43→22:29)
--- NOTE | 2021-04-22 05:40 | PCM.PN.INT ---
Assessment & Plan Assessment/Plan (1) Pneumonia due to COVID-19 virus: (2) Acute respiratory failure with hypoxia: PLAN: RECOMMENDATIONS: 1. Continue to wean FiO2 and PEEP to maintain saturations at or above 90%. 2. Continue antimicrobials as ordered. 3. Continue Decadron and Lovenox. 4. Continue tube feeds as tolerated. 5. Continue appropriate GI prophylaxis. 6. Levophed, as needed, to maintain hemodynamic stability. IMPRESSIONS: 1. Acute hypoxic respiratory failure secondary to COVID-19 and pseudomonal/stenotrophomonas pneumonia The patient has had rapid worsening in his oxygenation status. The patient had essentially been BiPAP dependent for 3 straight days without any meaningful clinical improvement. Therefore, the decision was made to proceed with intubation on the morning of April 17. Plan to continue supportive measures and wean FiO2 to maintain oxygen saturations at or above 90%. The patient has completed a treatment course of remdesivir and will remain on Decadron and Lovenox. The patient may have an underlying component of obstructive lung disease as well. Continue antimicrobials as ordered along with vitamin C and zinc. The patient was not a candidate for baricitinib or tocilizumab. The patient is unable to receive diuretic therapy due to worsening renal insufficiency. 2. Acute kidney injury Likely prerenal in etiology. Continue to monitor urine output. No current indication for renal replacement therapy. Nephrology is currently following. We will continue to hold diuretics for now. 3. Distributive shock The patient became hypotensive as a consequence of sedative medication use. Therefore, the patient will be continued on low-dose vasopressor support to maintain hemodynamic stability. 4. Suspected CHF/A. fib Continue current medical management. The patient appears to be sinus rhythm at the current time. The patient is on DVT prophylaxis with Lovenox, but may be at increased risk for full dose therapeutic anticoagulation given his brain mass. 5. Recent diagnosis of brain mass/advanced age/hypertension/history of prostate cancer/unvaccinated status Complicates care, management, recovery and prognosis. Continue medical management as noted above. Okay to continue tube feeds as tolerated. TIME: 35 minutes of critical care time, inclusive of procedures, was spent addressing the patient's acute hypoxemic respiratory failure secondary to COVID-19 pneumonia, acute kidney injury, distributive shock, atrial fibrillation, review of all data and collaboration with care team. ([id number]) Subjective Subjective The patient was seen and examined at the bedside this morning. Events from the last 24 hours have been reviewed. The patient is currently afebrile. The patient did convert to normal sinus rhythm. He was able to be weaned off of Levophed completely. The patient has been maintained on assist control mode of mechanical ventilation with an FiO2 requirement of 90% and PEEP of 10. He has been tolerant of tube feeds. The patient remains sedated on propofol and fentanyl. He is currently documented to be overall net +7.4 L for the hospital admission. The patient has completed a treatment course of remdesivir. He was not felt to be a candidate for baricitinib or tocilizumab. The patient remains on Decadron, antimicrobials and prophylactic Lovenox. Objective Data Objective Data The patient's most recent lab work, culture data and imaging studies have all been personally reviewed. Rapid coronavirus antigen testing was positive on April 13. Strep and urine Legionella antigens were negative. Respiratory viral panel was negative. The patient's sputum cultures have demonstrated growth of Pseudomonas and stenotrophomonas. Vital Signs: Vital Signs Temp Pulse Resp BP Pulse Ox 98.7 F 141 H 20 H 136/64 H 92 04/22/21 04:00 04/22/21 04:00 04/22/21 04:00 04/22/21 04:00 04/22/21 04:00 Oxygen Flow Rate (L/min) 90 Oxygen Delivery Method Mechanical Ventilator Weight: 77.2 kg Body Mass Index (BMI) 24.0 Intake & Output: Intake and Output for Last 24 Hours 04/20/21 04/21/21 04/22/21 23:59 23:59 23:59 Intake Total 3391.26 / 3440.46 3896.87 / 3918.27 644.23 / 644.23 Output Total 1725 / 1725 1775 / 1775 450 / 450 Balance 1666.26 / 1715.46 2121.87 / 2143.27 194.23 / 194.23 Lab / Micro Data Attestation: I reviewed the patient's lab results. Result Diagrams: 04/22/21 08:30 04/21/21 04:10 Labs: Laboratory Results - last 24 hr 04/21/21 04:10: Absolute Neuts (auto) 4.4, Absolute Lymphs (auto) 0.49 L, Total Counted 100, Neutrophils % (Manual) 79 H, Band Neutrophils % 5, Lymphocytes % (Manual) 10 L, Metamyelocytes % 5 H, Other Cells % 1, Diff Path Review May foll, Platelet Estimate SLT DEC, Plt Morphology Comment CLUMPED, RBC Morphology NORM C+C 04/21/21 04:10: Magnesium 2.5 04/21/21 06:49: POC Glucose 330 H 04/21/21 11:29: POC Glucose 370 H 04/21/21 18:15: POC Glucose 325 H 04/21/21 22:53: POC Glucose 313 H Micro: Microbiology 04/17/21 08:55 Sputum, Induced/Lukens Gram Stain - Final 04/17/21 08:55 Sputum, Induced/Lukens Respiratory Culture - Final Stenotrophomonas maltophilia 04/16/21 11:10 Sputum, Expectorated/Coughed Gram Stain - Final 04/16/21 11:10 Sputum, Expectorated/Coughed Respiratory Culture - Final Presumptive C albicans 04/16/21 10:45 Sputum, Expectorated/Coughed Gram Stain - Final 04/16/21 10:45 Sputum, Expectorated/Coughed Respiratory Culture - Final Pseudomonas aeroginosa Presumptive C albicans 04/14/21 00:00 Urine, Clean Catch Legionella Antigen - Final 04/14/21 00:00 Urine, Clean Catch Streptococcus pneumoniae Antigen (M - Final 04/13/21 19:28 Mucosa - Nasopharyngeal Respiratory Panel (PCR) - Final 04/13/21 16:18 Nasal Secretion SARS-CoV-2 Antigen (Rapid) - Final SARS-CoV-2 (COVID 19) Radiography Diagnostic Testing: Radiology Impression Chest X-Ray 04/21/21 06:07 IMPRESSION: 1. Interval placement of a right upper extremity PICC with tip the catheter overlying the superior vena cava. 2. Endotracheal tube and nasogastric tube both which are unchanged. 3. Worsening bilateral pneumonia. Electronically Signed: Velasquez Lloyd MD at 8:51 EDT Tel , Service support , Physical Exam Const no apparent distress Constitutional Narrative: No ventilator dyssynchrony. General Appearance: ill appearing, intubated and patient mechanically ventilated HEENT normocephalic and head/scalp atraumatic Mouth: endotracheal tube in place and OG tube in place Eyes PERRL and conjunctivae normal Neck supple General: trachea midline Chest inspection of chest normal Chest Narrative: No crepitus noted. Resp Auscultation: diminished lung sounds; Negative for rales, rhonchi or wheezes Cardio S1 normal heart sound and S2 normal heart sound Cardio Narrative: IRIR Rate: tachycardic GI normal to inspection, nondistended, normoactive bowel sounds Extremity General Extremity: edema; Negative for clubbing Skin no rashes or lesions noted Neuro Sensorium / Orientation: sedated on vent Charges/Coding Procedures Hospitalists Procedures: 11042 Critial Care 1st Hr
[2021-04-22] MEDS: Insulin Lispro 100 UNIT/ML INSULN.PEN SC ×4 (06:30→23:37)
[2021-04-22 06:36] LABS: Bedside Glucose 286 mg/dL (70-110)
--- NOTE | 2021-04-22 07:15 | PN.HOSP_ITS ---
Subjective Subjective Patient seen and examined. He remains intubated and sedated. HE converted to normal sinus rhythm. He remains on PEEP of 10 and BIPAP of 90%. He is tolerant of tube feeding. He is in cumulative positive fluid balance of 7.4L. Sputum cultures are positive for Pseudomonas and stentotropohomonas. Objective Data Objective Data Vital Signs: Vital Signs Temp Pulse Resp BP Pulse Ox 98.7 F 96 18 123/61 H 93 04/22/21 04:00 04/22/21 06:00 04/22/21 06:00 04/22/21 06:00 04/22/21 06:00 Oxygen Flow Rate (L/min) 90 Oxygen Delivery Method Mechanical Ventilator Weight: 172 lb 2.896 oz Body Mass Index (BMI) 24.0 Intake & Output: Intake and Output for Last 24 Hours 04/20/21 04/21/21 04/22/21 23:59 23:59 23:59 Intake Total 3391.26 / 3440.46 3896.87 / 3918.27 854.34 / 854.34 Output Total 1725 / 1725 1775 / 1775 450 / 450 Balance 1666.26 / 1715.46 2121.87 / 2143.27 404.34 / 404.34 Lab / Micro Data Result Diagrams: 04/21/21 04:10 04/21/21 04:10 Labs: Laboratory Results - last 24 hr 04/21/21 11:29: POC Glucose 370 H 04/21/21 18:15: POC Glucose 325 H 04/21/21 22:53: POC Glucose 313 H 04/22/21 06:29: POC Glucose 286 H Micro: Microbiology 04/17/21 08:55 Sputum, Induced/Lukens Gram Stain - Final 04/17/21 08:55 Sputum, Induced/Lukens Respiratory Culture - Final Stenotrophomonas maltophilia 04/16/21 11:10 Sputum, Expectorated/Coughed Gram Stain - Final 04/16/21 11:10 Sputum, Expectorated/Coughed Respiratory Culture - Final Presumptive C albicans 04/16/21 10:45 Sputum, Expectorated/Coughed Gram Stain - Final 04/16/21 10:45 Sputum, Expectorated/Coughed Respiratory Culture - Final Pseudomonas aeroginosa Presumptive C albicans 04/14/21 00:00 Urine, Clean Catch Legionella Antigen - Final 04/14/21 00:00 Urine, Clean Catch Streptococcus pneumoniae Antigen (M - Final 04/13/21 19:28 Mucosa - Nasopharyngeal Respiratory Panel (PCR) - Final 04/13/21 16:18 Nasal Secretion SARS-CoV-2 Antigen (Rapid) - Final SARS-CoV-2 (COVID 19) Radiography Diagnostic Testing: Radiology Impression Chest X-Ray 04/21/21 06:07 IMPRESSION: 1. Interval placement of a right upper extremity PICC with tip the catheter overlying the superior vena cava. 2. Endotracheal tube and nasogastric tube both which are unchanged. 3. Worsening bilateral pneumonia. Electronically Signed: Velasquez Lloyd MD at 8:51 EDT Tel , Service support , Physical Exam Const Constitutional Narrative: remains intubated, sedated, RASS score is -4 General Appearance: cooperative Exam Limitations: altered mental status HEENT normocephalic, head/scalp atraumatic and moist oral mucous membranes Eyes PERRL, EOMs intact bilaterally and conjunctivae normal Neck no lymphadenopathy, supple and no JVD Resp normal respiratory effort, no retractions and no use of accessory muscles Resp Narrative: diminished breath sounds posteriorly, bibasally. No wheezes or crackles. intubated and sedated Effort and Inspection: tachypneic Auscultation: diminished lung sounds Cardio S1 normal heart sound, S2 normal heart sound and no murmurs Cardio Narrative: tachycardia has resolved and is now in NSR. GI normal to inspection, nondistended, normoactive bowel sounds, soft to palpation, non-tender and non-distended; Negative for hepatosplenomegaly Extremity normal to inspection, full ROM and no clubbing, cyanosis or edema General Extremity: edema; Negative for clubbing or cyanosis Skin no rashes or lesions noted Neuro Neuro Narrative: intubated, sedated, RASS score is -4 Psych Psych Narrative: intubated and sedated Appearance: appropriate Assessment & Plan Assessment/Plan (1) Acute respiratory failure with hypoxia: PLAN: #Acute hypoxic respiratory failure due to COVID 19 pneumonia * still remains intubated and sedated. weaned off levophed. * has completed a course of remdesivir. Remains on decadron * diuretics held o/a of Cr trending up * critical care on board * titrate oxygen to maintain sats >90% * breathing treatment with bronchodilators. * on IV zosyn * also on vitamin C and zinc * sputum culture positive for Pseudomonas and stentotrophomonaas, remains on antibiotics. * not a candidate for baricitinib or tocilizumab * #Septic shock due to Covid 19 pneumonia * now weaned off levophed. * # COVID 19 pneumonia: as above #Hypokalemia: resolved #Thromobocytopenia * labs are pending today. * if platelets drop some more, will need to consider stopping lovenox. * #Afib: * weaned off amiodarone drip now, and patient converted to NSR. * not on full dose anticoagulation; may be at increased risk for brain bleed with full dose anticoagulation due to his brain mass. #GREG: * Cr is 1.47 today. Likely pre-renal in setting of shock. * nephrology on board. No need for renal replacement therapy now, as per nephrology #Hypertension: on metoprolol and losartan which were held o/ a of shock. #Brain mass * recently diagnosed with a brain mass at [facility] which he elected not to have worked up there. 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 DVT prophylaxis: lovenox 30mg bid Charges/Coding Visit Charges Inpatient E&M: 17435 Subs Hosp L3
[2021-04-22] MEDS: Chlorhexidine 15 ML PO ×2 (08:40→20:06)
[2021-04-22] MEDS: CHLORHEXIDINE GLUC 2% CLOTH 1 EACH TOWELETTE TOPICAL (08:41)
[2021-04-22] MEDS: 0.9% Saline Lock 10 ML Syringe IV (08:41)
[2021-04-22] MEDS: Enoxaparin 30 MG/0.3 ML Syringe SC ×2 (08:42→19:57)
[2021-04-22] MEDS: dexAMETHasone 10 MG/ML Vial 6 MG IV (08:42)
[2021-04-22] MEDS: Metoprolol Tartrate 50 MG Tablet GT ×2 (08:42→19:57)
[2021-04-22] MEDS: Famotidine 20 MG Tablet GT ×2 (08:43→19:56)
[2021-04-22 08:44] LABS: Hematocrit 28.6 % (40-54); Hemoglobin 9.4 g/dL (13.0-16.5); Mean Corp Hgb Conc 32.9 g/dL (32-36); Mean Corpuscular Hgb 30.7 pg (27.0-32.0); Mean Corpuscular Volume 93.5 fL (80-94); Mean Platelet Vol. 11.4 fl (6.2-12.0); POSITIVE COUNT YES; POSITIVE DIFFERENTIAL YES; POSITIVE MORPHOLOGY YES; RBC Distribution Width CV 15.9 % (11.6-14.6); RBC Distribution Width SD 54.1 fl (35.1-43.9); Red Blood Count 3.06 M/mm3 (4.6-6.2)
[2021-04-22 08:46] LABS: Differential Indicated MANUAL DIFF
[2021-04-22 08:56] LABS: ALB/GLOB Ratio 0.2 RATIO (0.9-2.4); AST(SGOT) 33 U/L (15-37); Alanine Aminotransfer ALT/SGPT 44 U/L (16-61); Alkaline Phosphatase 77 U/L (45-117); Anion Gap 6 (5-15); BUN 73 mg/dL (7-18); BUN/Creat Ratio 40.8 RATIO (10-20); Calcium,Total 7.9 mg/dL (8.5-10.1); Chloride 109 mmol/L (98-107); Creatinine, Serum 1.79 mg/dL (0.70-1.30); EST Glomerular Filtration Rate 40 mL/min (>60); Est Glom Filt Rate - Afr Amer 48 mL/min (>60); Estimated Creatinine Clearance 40.34 ml/min; Globulin 4.5 g/dL (2.2-4.2); Glucose 340 mg/dL (74-106); Potassium 4.2 mmol/L (3.5-5.1); Protein, Total 5.5 g/dL (6.4-8.2); Sodium Level 144 mmol/L (136-145)
[2021-04-22 09:06] LABS: Phosphorus 2.4 mg/dL (2.5-4.9)
[2021-04-22 09:18] LABS: Hypochromasia 1+; Lymphocyte 4 % (19-41); Metamyelocyte 2 % (0-1); Monocyte 5 % (0-10); Myelocyte 3 % (0-0); Neutrophil-Band 4 % (0-5); Neutrophil-Segmented 81 % (47-70); Platelet Estimate ADEQUATE (ADEQ); Platelet Morphology CLUMPED; Promyelocyte 1 % (0-0); Total Cells Counted 100 (MANUAL DIFF)
[2021-04-22 09:20] LABS: Absolute Neutrophil Count 4.2 X10^3/uL (2.0-7.7)
[2021-04-22] MEDS: levoFLOXacin IV 750 MG/150 ML BAG 100 MG IV (10:55)
[2021-04-22] MEDS: Senna/Docusate Sodium 1 Tablet 2 TABLET GT ×2 (10:56→19:56)
[2021-04-22] MEDS: Polyethylene Glycol 3350 17 GM PACKET GT ×2 (10:56→19:57)
[2021-04-22 11:21] LABS: Bedside Glucose 334 mg/dL (70-110)
[2021-04-22] MEDS: Acetaminophen 650 MG/20 ML UDC GT (14:18)
--- NOTE | 2021-04-22 16:15 | PCM.PN.REN ---
Subjective Subjective No new events Objective Data Objective Data Vital Signs: Vital Signs Temp Pulse Resp BP Pulse Ox 100.7 F H 89 21 H 112/57 L 92 04/22/21 14:00 04/22/21 15:05 04/22/21 15:00 04/22/21 15:00 04/22/21 15:00 Oxygen Flow Rate (L/min) 90 Oxygen Delivery Method Mechanical Ventilator Weight: 78.1 kg Body Mass Index (BMI) 24.0 Intake & Output: Intake and Output for Last 24 Hours 04/20/21 04/21/21 04/22/21 23:59 23:59 23:59 Intake Total 3391.26 / 3440.46 3896.87 / 3918.27 1878.44 / 1878.44 Output Total 1725 / 1725 1775 / 1775 1050 / 1050 Balance 1666.26 / 1715.46 2121.87 / 2143.27 828.44 / 828.44 Lab / Micro Data Result Diagrams: 04/22/21 08:30 04/22/21 08:30 Labs: Laboratory Results - last 24 hr 04/21/21 11:29: POC Glucose 370 H 04/21/21 18:15: POC Glucose 325 H 04/21/21 22:53: POC Glucose 313 H 04/22/21 06:29: POC Glucose 286 H 04/22/21 08:30: WBC 5.0, RBC 3.06 L, Hgb 9.4 L, Hct 28.6 L, MCV 93.5, MCH 30.7, MCHC 32.9, RDW Std Deviation 54.1 H, RDW Coeff of Mei 15.9 H, Plt Count TNP, MPV 11.4, Neut % (Auto) Not Reportable, Absolute Neuts (auto) 4.2, Absolute Lymphs (auto) 0.20 L, Total Counted 100, Neutrophils % (Manual) 81 H, Band Neutrophils % 4, Lymphocytes % (Manual) 4 L, Monocytes % (Manual) 5, Metamyelocytes % 2 H, Myelocytes % 3 H, Promyelocytes % 1 H, Diff Path Review May foll, Platelet Estimate ADEQUATE, Plt Morphology Comment CLUMPED, Hypochromasia 1+ 04/22/21 08:30: Sodium 144, Potassium 4.2, Chloride 109 H, Carbon Dioxide 29.0, Anion Gap 6, BUN 73 H, Creatinine 1.79 H, Estim Creat Clear Calc 40.34, Est GFR (MDRD) Af Amer 48 L, Est GFR (MDRD) Non-Af 40 L, BUN/Creatinine Ratio 40.8 H, Glucose 340 H, Calcium 7.9 L, Total Bilirubin 0.50, AST 33, ALT 44, Alkaline Phosphatase 77, Total Protein 5.5 L, Albumin 1.0 L, Globulin 4.5 H, Albumin/Globulin Ratio 0.2 L 04/22/21 08:30: Phosphorus 2.4 L 04/22/21 10:54: POC Glucose 334 H Micro: Microbiology 04/17/21 08:55 Sputum, Induced/Lukens Gram Stain - Final 04/17/21 08:55 Sputum, Induced/Lukens Respiratory Culture - Final Stenotrophomonas maltophilia 04/16/21 11:10 Sputum, Expectorated/Coughed Gram Stain - Final 04/16/21 11:10 Sputum, Expectorated/Coughed Respiratory Culture - Final Presumptive C albicans 04/16/21 10:45 Sputum, Expectorated/Coughed Gram Stain - Final 04/16/21 10:45 Sputum, Expectorated/Coughed Respiratory Culture - Final Pseudomonas aeroginosa Presumptive C albicans 04/14/21 00:00 Urine, Clean Catch Legionella Antigen - Final 04/14/21 00:00 Urine, Clean Catch Streptococcus pneumoniae Antigen (M - Final 04/13/21 19:28 Mucosa - Nasopharyngeal Respiratory Panel (PCR) - Final 04/13/21 16:18 Nasal Secretion SARS-CoV-2 Antigen (Rapid) - Final SARS-CoV-2 (COVID 19) Physical Exam Narrative General: Ill-appearing man who appears to be stated age. He is on ventilator. HEENT: Normocephalic, atraumatic. The patient is intubated. PERRLA. Neck: Supple, no JVD. Heart: Normal S1, S2. No rubs. Lungs: Coarse breath sound bilaterally. Abdomen: Normal bowel sound, soft, nontender no guarding or rebound. Extremity: 2+ lower extremity edema. No clubbing or cyanosis. Neurologic: No focal neurologic deficit. The patient is sedated. Assessment & Plan Assessment/Plan (1) GREG (acute kidney injury): (2) Septic shock: (3) Pneumonia due to COVID-19 virus: (4) Acute respiratory failure with hypoxia: PLAN: -The patient has normal baseline renal function. -GREG is likely due to prerenal azotemia from decreased renal perfusion related to septic shock. The patient has a high risk for progression to ischemic ATN as well. -cr stable
[2021-04-22 18:20] LABS: Bedside Glucose 343 mg/dL (70-110)
[2021-04-22 22:36] LABS: Bedside Glucose 280 mg/dL (70-110)
[2021-04-23] VITALS (53 sets, daily range): BP systolic 74–149; BP diastolic 41–117; PULSE 67–148; RESP 16–46; TEMP 36.6–37; O2SAT 79–94
[2021-04-23] MEDS: Propofol 10MG/Ml 1,000 MG/100 ML Bottle 11.4 MG CONT INF ×2 (01:06→05:40)
[2021-04-23 03:46] LABS: Hematocrit 27.9 % (40-54); Hemoglobin 9.1 g/dL (13.0-16.5); Mean Corp Hgb Conc 32.6 g/dL (32-36); Mean Corpuscular Hgb 30.3 pg (27.0-32.0); Mean Platelet Vol. 10.2 fl (6.2-12.0); POSITIVE COUNT YES; POSITIVE DIFFERENTIAL YES; POSITIVE MORPHOLOGY YES; Platelet Count 84 K/mm3 (150-450); RBC Distribution Width SD 54.5 fl (35.1-43.9); White Blood Count 6.1 K/mm3 (4.4-11.0)
[2021-04-23 04:03] LABS: Differential Indicated MANUAL DIFF
[2021-04-23 04:20] LABS: ALB/GLOB Ratio 0.2 RATIO (0.9-2.4); AST(SGOT) 52 U/L (15-37); Alanine Aminotransfer ALT/SGPT 50 U/L (16-61); Alkaline Phosphatase 72 U/L (45-117); Anion Gap 8 (5-15); BUN 94 mg/dL (7-18); BUN/Creat Ratio 37.5 RATIO (10-20); Calcium,Total 7.8 mg/dL (8.5-10.1); Chloride 107 mmol/L (98-107); Creatinine, Serum 2.51 mg/dL (0.70-1.30); EST Glomerular Filtration Rate 27 mL/min (>60); Est Glom Filt Rate - Afr Amer 33 mL/min (>60); Estimated Creatinine Clearance 28.77 ml/min; Globulin 4.4 g/dL (2.2-4.2); Glucose 302 mg/dL (74-106); Magnesium 2.4 mg/dL (1.6-2.6); Phosphorus 3.2 mg/dL (2.5-4.9); Potassium 4.8 mmol/L (3.5-5.1); Protein, Total 5.4 g/dL (6.4-8.2); Sodium Level 145 mmol/L (136-145)
[2021-04-23] MEDS: CHLORHEXIDINE GLUC 2% CLOTH 1 EACH TOWELETTE TOPICAL (04:44)
[2021-04-23 04:51] LABS: Absolute Lymphocyte Count 0.24 X10^3/uL (0.83-4.51); Absolute Neutrophil Count 5.6 X10^3/uL (2.0-7.7); Metamyelocyte 0 % (0-1); Neutrophil-Band 10 % (0-5); Neutrophil-Segmented 81 % (47-70)
[2021-04-23 04:52] LABS: Anisocytosis 2+; Basophil 0 % (0-1); Blast 1 % (0-0); Eosinophil 0 % (0-5); Lymphocyte 4 % (19-41); Monocyte 3 % (0-10); Myelocyte 1 % (0-0); Nucleated Red Bld Cells,Manual 1 % (0-5); Plasma Cell 0 %; Platelet Estimate MOD DEC (ADEQ); Red Cell Morphology NORM C+C NORMAL (NORM C&C)
[2021-04-23] MEDS: Insulin Lispro 100 UNIT/ML INSULN.PEN SC ×3 (05:39→16:46)
[2021-04-23] MEDS: TITRATION PARAMETER CHANGE 1 EACH IV (06:18)
[2021-04-23 06:43] LABS: Platelet Morphology CLUMPED
[2021-04-23 08:21] LABS: Bedside Glucose 261 mg/dL (70-110)
[2021-04-23] MEDS: Chlorhexidine 15 ML PO (08:31)
[2021-04-23] MEDS: Famotidine 20 MG Tablet GT (08:31)
[2021-04-23] MEDS: Enoxaparin 30 MG/0.3 ML Syringe SC (08:31)
[2021-04-23] MEDS: Senna/Docusate Sodium 1 Tablet 2 TABLET GT (08:31)
[2021-04-23] MEDS: Metoprolol Tartrate 50 MG Tablet GT (08:31)
[2021-04-23] MEDS: Polyethylene Glycol 3350 17 GM PACKET GT (08:32)
--- NOTE | 2021-04-23 08:50 | PN.CC_ITS ---
Assessment & Plan Assessment/Plan (1) Pneumonia due to COVID-19 virus: (2) Acute respiratory failure with hypoxia: PLAN: RECOMMENDATIONS: 1. Continue to wean FiO2 and PEEP to maintain saturations at or above 90%. 2. Continue antimicrobials as ordered. 3. Continue Decadron and Lovenox. 4. Continue tube feeds as tolerated. 5. Continue appropriate GI prophylaxis. 6. Levophed, as needed, to maintain hemodynamic stability. IMPRESSIONS: 1. Acute hypoxic respiratory failure secondary to ARDS secondary to COVID-19 and pseudomonal/stenotrophomonas pneumonia The patient has had rapid worsening in his oxygenation status. The patient had essentially been BiPAP dependent for 3 straight days without any meaningful clinical improvement. Therefore, the decision was made to proceed with intubation on the morning of April 17. Plan to continue supportive measures and wean FiO2 to maintain oxygen saturations at or above 90%. The patient has completed a treatment course of remdesivir and will remain on Decadron and Lovenox. The patient may have an underlying component of obstructive lung disease as well. Continue antimicrobials as ordered along with vitamin C and zinc. The patient was not a candidate for baricitinib or tocilizumab. The patient is unable to receive diuretic therapy due to worsening renal insufficiency. 2. Acute kidney injury Likely prerenal in etiology. Continue to monitor urine output. No current indication for renal replacement therapy. Nephrology is currently following. We will continue to hold diuretics for now. 3. Distributive shock The patient became hypotensive as a consequence of sedative medication use. Therefore, the patient will be continued on low-dose vasopressor support to maintain hemodynamic stability. 4. Suspected CHF/A. fib Continue current medical management. The patient appears to be A. fib with RVR at the current time. Patient with significant bundle branch, so tele metry does resemble V. tach. The patient is on DVT prophylaxis with Lovenox, but may be at increased risk for full dose therapeutic anticoagulation given his brain mass. 5. Recent diagnosis of brain mass/advanced age/hypertension/history of prostate cancer/unvaccinated status Complicates care, management, recovery and prognosis. Continue medical management as noted above. Okay to continue tube feeds as tolerated. TIME: 35 minutes of critical care time, inclusive of procedures, was spent addressing the patient's acute hypoxemic respiratory failure secondary to COVID- 19 pneumonia, acute kidney injury, distributive shock, atrial fibrillation, review of all data and collaboration with care team. (6:15 AM to 7:15 AM) Subjective Subjective The patient did okay overnight. Patient has remained off of Levophed and is tolerating tube feeds. Patient did develop A. fib with RVR following bathing this morning. Objective Data Objective Data Vital Signs: Vital Signs Temp Pulse Resp BP Pulse Ox 37.0 C 127 H 20 H 88/58 L 90 04/23/21 00:00 04/23/21 08:31 04/23/21 07:37 04/23/21 07:00 04/23/21 07:37 Oxygen Flow Rate (L/min) 90 Oxygen Delivery Method Mechanical Ventilator Weight: 78.2 kg Body Mass Index (BMI) 24.0 Intake & Output: Intake and Output for Last 24 Hours 04/21/21 04/22/21 04/23/21 23:59 23:59 23:59 Intake Total 3896.87 / 3918.27 3129.58 / 3644.85 1604.41 / 1604.41 Output Total 1775 / 1775 1750 / 2150 700 / 700 Balance 2121.87 / 2143.27 1379.58 / 1494.85 904.41 / 904.41 Lab / Micro Data Result Diagrams: 04/23/21 03:25 04/23/21 03:25 Labs: Laboratory Results - last 24 hr 04/22/21 08:30: Plt Count TNP, Absolute Neuts (auto) 4.2, Absolute Lymphs (auto) 0.20 L, Total Counted 100, Neutrophils % (Manual) 81 H, Band Neutrophils % 4, Lymphocytes % (Manual) 4 L, Monocytes % (Manual) 5, Metamyelocytes % 2 H, Myeloc ytes % 3 H, Promyelocytes % 1 H, Diff Path Review May foll, Platelet Estimate ADEQUATE, Plt Morphology Comment CLUMPED, Hypochromasia 1+ 04/22/21 08:30: Sodium 144, Potassium 4.2, Chloride 109 H, Carbon Dioxide 29.0, Anion Gap 6, BUN 73 H, Creatinine 1.79 H, Estim Creat Clear Calc 40.34, Est GFR (MDRD) Af Amer 48 L, Est GFR (MDRD) Non-Af 40 L, BUN/Creatinine Ratio 40.8 H, Glucose 340 H, Calcium 7.9 L, Total Bilirubin 0.50, AST 33, ALT 44, Alkaline Phosphatase 77, Total Protein 5.5 L, Albumin 1.0 L, Globulin 4.5 H, Albumin/Globulin Ratio 0.2 L 04/22/21 08:30: Phosphorus 2.4 L 04/22/21 10:54: POC Glucose 334 H 04/22/21 17:40: POC Glucose 343 H 04/22/21 22:20: POC Glucose 280 H 04/23/21 03:25: WBC 6.1, RBC 3.00 L, Hgb 9.1 L, Hct 27.9 L, MCV 93.0, MCH 30.3, MCHC 32.6, RDW Std Deviation 54.5 H, RDW Coeff of Mei 16.0 H, Plt Count 84 L, MPV 10.2, Neut % (Auto) Not Reportable, Absolute Neuts (auto) 5.6, Absolute Lymphs (auto) 0.24 L, Neutrophils % (Manual) 81 H, Band Neutrophils % 10 H, Lymphocytes % (Manual) 4 L, Monocytes % (Manual) 3, Eosinophils % (Manual) 0, Basophils % (Manual) 0, Metamyelocytes % 0, Myelocytes % 1 H, Blast Cells % 1 H* , Plasma Cell % (Manual) 0, Nucleated RBCs/100 WBC 1, Diff Path Review May foll, Platelet Estimate MOD DEC, Plt Morphology Comment CLUMPED, RBC Morphology NORM C+C, Anisocytosis 2+ 04/23/21 03:25: Sodium 145, Potassium 4.8, Chloride 107, Carbon Dioxide 30.0, Anion Gap 8, BUN 94 H, Creatinine 2.51 H, Estim Creat Clear Calc 28.77, Est GFR (MDRD) Af Amer 33 L, Est GFR (MDRD) Non-Af 27 L, BUN/Creatinine Ratio 37.5 H, Glucose 302 H, Calcium 7.8 L, Phosphorus 3.2, Magnesium 2.4, Total Bilirubin 0.50, AST 52 H, ALT 50, Alkaline Phosphatase 72, Total Protein 5.4 L, Albumin 1.0 L, Globulin 4.4 H, Albumin/Globulin Ratio 0.2 L 04/23/21 05:34: POC Glucose 261 H Micro: Microbiology 04/17/21 08:55 Sputum, Induced/Lukens Gram Stain - Final 04/17/21 08:55 Sputum, Induced/Lukens Respiratory Culture - Final Stenotrophomonas maltophilia 04/16/21 11:10 Sputum, Expectorated/Coughed Gram Stain - Final 04/16/21 11:10 Sputum, Expectorated/Coughed Respiratory Culture - Final Presumptive C albicans 04/16/21 10:45 Sputum, Expectorated/Coughed Gram Stain - Final 04/16/21 10:45 Sputum, Expectorated/Coughed Respiratory Culture - Final Pseudomonas aeroginosa Presumptive C albicans 04/14/21 00:00 Urine, Clean Catch Legionella Antigen - Final 04/14/21 00:00 Urine, Clean Catch Streptococcus pneumoniae Antigen (M - Final 04/13/21 19:28 Mucosa - Nasopharyngeal Respiratory Panel (PCR) - Final 04/13/21 16:18 Nasal Secretion SARS-CoV-2 Antigen (Rapid) - Final SARS-CoV-2 (COVID 19) Physical Exam Const no apparent distress Constitutional Narrative: No ventilator dyssynchrony. General Appearance: ill appearing, intubated and patient mechanically ventilated HEENT normocephalic and head/scalp atraumatic Mouth: endotracheal tube in place and OG tube in place Eyes PERRL and conjunctivae normal Neck supple General: trachea midline Chest inspection of chest normal Chest: symmetrical chest wall rise; Negative for crepitus Resp Auscultation: diminished lung sounds; Negative for rales, rhonchi or wheezes Cardio S1 normal heart sound and S2 normal heart sound Cardio Narrative: IRIR. Wide spaced QRS on telemetry Rate: tachycardic GI normal to inspection, nondistended, normoactive bowel sounds Extremity General Extremity: edema; Negative for clubbing Skin no rashes or lesions noted Neuro Sensorium / Orientation: sedated on vent Charges/Coding Procedures Hospitalists Procedures: 14170 Critial Care 1st Hr
--- NOTE | 2021-04-23 09:45 | PN.HOSP_ITS ---
Subjective Subjective Intubated and sedated, no issues overnight Objective Data Objective Data Vital Signs: Vital Signs Temp Pulse Resp BP Pulse Ox 98.6 F 127 H 20 H 88/58 L 90 04/23/21 00:00 04/23/21 08:31 04/23/21 07:37 04/23/21 07:00 04/23/21 07:37 Oxygen Flow Rate (L/min) 90 Oxygen Delivery Method Mechanical Ventilator Weight: 172 lb 6.424 oz Body Mass Index (BMI) 24.0 Intake & Output: Intake and Output for Last 24 Hours 04/22/21 04/23/21 04/24/21 03:59 03:59 03:59 Intake Total 3570.50 / 3591.90 3643.19 / 3764.59 1008.37 / 1008.37 Output Total 1775 / 1775 2150 / 2150 300 / 300 Balance 1795.50 / 1816.90 1493.19 / 1614.59 708.37 / 708.37 Lab / Micro Data Result Diagrams: 04/23/21 03:25 04/23/21 03:25 Labs: Laboratory Results - last 24 hr 04/22/21 10:54: POC Glucose 334 H 04/22/21 17:40: POC Glucose 343 H 04/22/21 22:20: POC Glucose 280 H 04/23/21 03:25: WBC 6.1, RBC 3.00 L, Hgb 9.1 L, Hct 27.9 L, MCV 93.0, MCH 30.3, MCHC 32.6, RDW Std Deviation 54.5 H, RDW Coeff of Mei 16.0 H, Plt Count 84 L, MPV 10.2, Neut % (Auto) Not Reportable, Absolute Neuts (auto) 5.6, Absolute Lymphs (auto) 0.24 L, Neutrophils % (Manual) 81 H, Band Neutrophils % 10 H, Lymphocytes % (Manual) 4 L, Monocytes % (Manual) 3, Eosinophils % (Manual) 0, Basophils % (Manual) 0, Metamyelocytes % 0, Myelocytes % 1 H, Blast Cells % 1 H* , Plasma Cell % (Manual) 0, Nucleated RBCs/100 WBC 1, Diff Path Review May foll, Platelet Estimate MOD DEC, Plt Morphology Comment CLUMPED, RBC Morphology NORM C+C, Anisocytosis 2+ 04/23/21 03:25: Sodium 145, Potassium 4.8, Chloride 107, Carbon Dioxide 30.0, Anion Gap 8, BUN 94 H, Creatinine 2.51 H, Estim Creat Clear Calc 28.77, Est GFR (MDRD) Af Amer 33 L, Est GFR (MDRD) Non-Af 27 L, BUN/Creatinine Ratio 37.5 H, Glucose 302 H, Calcium 7.8 L, Phosphorus 3.2, Magnesium 2.4, Total Bilirubin 0.50, AST 52 H, ALT 50, Alkaline Phosphatase 72, Total Protein 5.4 L, Albumin 1.0 L, Globulin 4.4 H, Albumin/Globulin Ratio 0.2 L 04/23/21 05:34: POC Glucose 261 H Micro: Microbiology 04/17/21 08:55 Sputum, Induced/Lukens Gram Stain - Final 04/17/21 08:55 Sputum, Induced/Lukens Respiratory Culture - Final Stenotrophomonas maltophilia 04/16/21 11:10 Sputum, Expectorated/Coughed Gram Stain - Final 04/16/21 11:10 Sputum, Expectorated/Coughed Respiratory Culture - Final Presumptive C albicans 04/16/21 10:45 Sputum, Expectorated/Coughed Gram Stain - Final 04/16/21 10:45 Sputum, Expectorated/Coughed Respiratory Culture - Final Pseudomonas aeroginosa Presumptive C albicans 04/14/21 00:00 Urine, Clean Catch Legionella Antigen - Final 04/14/21 00:00 Urine, Clean Catch Streptococcus pneumoniae Antigen (M - Final 04/13/21 19:28 Mucosa - Nasopharyngeal Respiratory Panel (PCR) - Final 04/13/21 16:18 Nasal Secretion SARS-CoV-2 Antigen (Rapid) - Final SARS-CoV-2 (COVID 19) Physical Exam Const no apparent distress Constitutional Narrative: r General Appearance: intubated and patient mechanically ventilated HEENT normocephalic and moist oral mucous membranes Eyes PERRL and conjunctivae normal Neck supple and no JVD Resp normal respiratory effort, no retractions and no use of accessory muscles Auscultation: diminished lung sounds; Negative for crackles, rales, rhonchi or wheezes Cardio S1 normal heart sound, S2 normal heart sound and no murmurs Rate: tachycardic Rhythm: abnormal rhythm GI soft to palpation and non-distended; Negative for hepatosplenomegaly Extremity General Extremity: clubbing and edema; Negative for cyanosis Skin no rashes or lesions noted Neuro Sensorium / Orientation: sedated on vent Psych Appearance: intubated Assessment & Plan Assessment/Plan (1) Acute respiratory failure with hypoxia: PLAN: 1. Acute hypoxic respiratory failure secondary to COVID-19 pneumonia/septic shock resolved/thrombocytopenia/GREG -Symptoms started 7 days prior to admission and he is on Decadron, and completed remdesivir -Unvaccinated, intubated 04/17/2021 -He does have a brain mass that was recently diagnosed in March at [facility] he has not had a work-up for this -Discussed the case with ID unfortunately given his lymphopenia he does not meet criteria for baricitinib treatment, will continue to monitor if he does enter into arrange for treatment then hopefully can initiate -Consult acid conditioner -Sputum cultures demonstrated Pseudomonas and stenotrophomonas, continue with Zosyn, appreciate infectious disease assistance -Continue to monitor thrombocytopenia -Creatinine is climbed to 2.51, will continue to monitor and hold Lasix 2. HTN/A. fib -Continue with his home blood pressure medications -Continue with amiodarone -Not on any anticoagulation 3. Brain mass -Found recently at [facility] -Has not had a work-up DVT: Lovenox Charges/Coding Visit Charges Inpatient E&M: 66821 Subs Hosp L2
[2021-04-23] MEDS: levoFLOXacin IV 750 MG/150 ML BAG 100 MG IV (11:01)
[2021-04-23] MEDS: Ascorbic Acid 500 MG Tablet 1000 MG GT (11:01)
[2021-04-23] MEDS: dexAMETHasone 4 MG Tablet GT (11:02)
[2021-04-23 12:26] LABS: Bedside Glucose 217 mg/dL (70-110)
[2021-04-23 12:52] LABS: Pathologist Review Reviewed
[2021-04-23 12:55] LABS: Pathologist Review Reviewed
[2021-04-23 13:05] LABS: Pathologist Review Reviewed
--- NOTE | 2021-04-23 13:37 | PCM.PN.ID ---
Physical Exam Narrative On vent Const no apparent distress Resp Effort and Inspection: mechanically ventilated Auscultation: diminished lung sounds Cardio Rate: tachycardic GI normal to inspection, nondistended, normoactive bowel sounds Skin no rashes or lesions noted ID ID: Route of nutrition/ use of supplements: [] Nutritional Intake: [] IV Site: [] Eastman Catheter: [] Assessment & Plan Assessment/Plan (1) Pneumonia due to COVID-19 virus: PLAN: Presented 04/13 with a week of fatigue, cough, chills, hypoxia. Unvaccinated. Covid (+). Now on vent. On dex, completed remdesivir; also on levaquin. Sputum 04/16 with PsA, sputum 04/17 with steno. Not a candidate for baricitinib on admission due to lymphopenia. 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 Isolate for 20 days from start of symptoms (~04/06). With GREG, will decrease dose levaquin. On vent. Will follow (2) Acute respiratory failure with hypoxia:
--- NOTE | 2021-04-23 13:51 | PN.RENAL_ITS ---
Subjective Subjective Patient was not directly examined due to active COVID-19 infection and to preserve PPE I reviewed related notes, lab and imaging studies d/w ICU nurse remains intubated. On/off levoped making urine Objective Data Objective Data Vital Signs: Vital Signs Temp Pulse Resp BP Pulse Ox 98.0 F 121 H 24 H 125/113 H 87 04/23/21 12:00 04/23/21 13:00 04/23/21 13:00 04/23/21 13:30 04/23/21 13:00 Oxygen Flow Rate (L/min) 90 Oxygen Delivery Method Mechanical Ventilator Weight: 78.2 kg Body Mass Index (BMI) 24.0 Intake & Output: Intake and Output for Last 24 Hours 04/21/21 04/22/21 04/23/21 23:59 23:59 23:59 Intake Total 3896.87 / 3918.27 3129.58 / 3644.85 2533.82 / 2533.82 Output Total 1775 / 1775 1750 / 2150 850 / 850 Balance 2121.87 / 2143.27 1379.58 / 1494.85 1683.82 / 1683.82 Lab / Micro Data Result Diagrams: 04/23/21 03:25 04/23/21 03:25 Labs: Laboratory Results - last 24 hr 04/21/21 04:10: Diff Path Review Reviewed 04/22/21 08:30: Diff Path Review Reviewed 04/22/21 17:40: POC Glucose 343 H 04/22/21 22:20: POC Glucose 280 H 04/23/21 03:25: WBC 6.1, RBC 3.00 L, Hgb 9.1 L, Hct 27.9 L, MCV 93.0, MCH 30.3, MCHC 32.6, RDW Std Deviation 54.5 H, RDW Coeff of Mei 16.0 H, Plt Count 84 L, MPV 10.2, Neut % (Auto) Not Reportable, Absolute Neuts (auto) 5.6, Absolute Lymphs (auto) 0.24 L, Neutrophils % (Manual) 81 H, Band Neutrophils % 10 H, Lym phocytes % (Manual) 4 L, Monocytes % (Manual) 3, Eosinophils % (Manual) 0, Basophils % (Manual) 0, Metamyelocytes % 0, Myelocytes % 1 H, Blast Cells % 1 H* , Plasma Cell % (Manual) 0, Nucleated RBCs/100 WBC 1, Diff Path Review Reviewed, Platelet Estimate MOD DEC, Plt Morphology Comment CLUMPED, RBC Morphology NORM C+C, Anisocytosis 2+ 04/23/21 03:25: Sodium 145, Potassium 4.8, Chloride 107, Carbon Dioxide 30.0, Anion Gap 8, BUN 94 H, Creatinine 2.51 H, Estim Creat Clear Calc 28.77, Est GFR (MDRD) Af Amer 33 L, Est GFR (MDRD) Non-Af 27 L, BUN/Creatinine Ratio 37.5 H, Glucose 302 H, Calcium 7.8 L, Phosphorus 3.2, Magnesium 2.4, Total Bilirubin 0.50, AST 52 H, ALT 50, Alkaline Phosphatase 72, Total Protein 5.4 L, Albumin 1.0 L, Globulin 4.4 H, Albumin/Globulin Ratio 0.2 L 04/23/21 05:34: POC Glucose 261 H 04/23/21 11:00: POC Glucose 217 H Micro: Microbiology 04/17/21 08:55 Sputum, Induced/Lukens Gram Stain - Final 04/17/21 08:55 Sputum, Induced/Lukens Respiratory Culture - Final Stenotrophomonas maltophilia 04/16/21 11:10 Sputum, Expectorated/Coughed Gram Stain - Final 04/16/21 11:10 Sputum, Expectorated/Coughed Respiratory Culture - Final Presumptive C albicans 04/16/21 10:45 Sputum, Expectorated/Coughed Gram Stain - Final 04/16/21 10:45 Sputum, Expectorated/Coughed Respiratory Culture - Final Pseudomonas aeroginosa Presumptive C albicans 04/14/21 00:00 Urine, Clean Catch Legionella Antigen - Final 04/14/21 00:00 Urine, Clean Catch Streptococcus pneumoniae Antigen (M - Final 04/13/21 19:28 Mucosa - Nasopharyngeal Respiratory Panel (PCR) - Final 04/13/21 16:18 Nasal Secretion SARS-CoV-2 Antigen (Rapid) - Final SARS-CoV-2 (COVID 19) Physical Exam Narrative No physical exam performed seen from outside ICU room sedated. intubated Assessment & Plan Assessment/Plan (1) GREG (acute kidney injury): (2) Septic shock: (3) Pneumonia due to COVID-19 virus: (4) Acute respiratory failure with hypoxia: PLAN: -The patient has normal baseline renal function. -GREG is likely ATN Cr is rising. making urine No need for CUSTOMER ACCOUNT REPRESENTATIVE Keep MAP > 65 Will evaluate the need for CUSTOMER ACCOUNT REPRESENTATIVE tomorrow Ok to diurse the patient if BP allows vent support and sepsis treatment as per ICU D.W Dr. Prado
[2021-04-23] MEDS: Magnesium Citrate 300 ML 150 ML GT (15:32)
[2021-04-23] MEDS: Vital AF 1.2 Cal Liquid 1,000 ML 65 ML GT (15:40)
--- NOTE | 2021-04-23 16:45 | RAD_ITS ---
HISTORY: SOB EXAMINATION/TECHNIQUE: XR Chest 1 View: Portable AP upright chest x-ray COMPARISON: 04/21/21 FINDINGS: LINES/DEVICES: Endotracheal tube tip 4.9 cm above the erika. Enteric tube passes below the diaphragm, tip not seen. Right arm PICC line persists. LUNGS: Persistent bilateral airspace opacities with improved aeration at the right lower lung field. No pneumothorax. MEDIASTINUM AND CARDIOVASCULAR STRUCTURES: Cardiac silhouette not enlarged. Central airways and mediastinal contour are unremarkable. BONES AND SOFT TISSUES: No acute bony abnormalities. RAD/Chest 1 View (Portable) IMPRESSION: Support devices as described. Improving aeration right lower lung field. at 1825 Reported and signed by: Pato Zuniga MD Electronically Signed: Pato Zuniga MD at 18:23 EDT Tel , Service support ,
[2021-04-23 16:55] LABS: Bedside Glucose 297 mg/dL (70-110)
[2021-04-23 17:05] LABS: Allen Test Positive; Base Excess -1 mmol/L (-2 to +2); Blood Gas Specimen Type ART; FI02 100; Mode BiLevel; O2 Delivery Device Adult Vent; PO2 53 mmHG (75-100); RR 12; SITE R Radial; SO2 79 % (95-99); Total Carbon Dioxide 29 mmol/L; pCO2 65.5 mmHg (35-45); pH 7.22 (7.35-7.45)
[2021-04-23 17:13] LABS: Anion Gap 6 (5-15); BUN 121 mg/dL (7-18); BUN/Creat Ratio 35.3 RATIO (10-20); Calcium,Total 7.5 mg/dL (8.5-10.1); Chloride 107 mmol/L (98-107); Creatinine, Serum 3.43 mg/dL (0.70-1.30); EST Glomerular Filtration Rate 19 mL/min (>60); Est Glom Filt Rate - Afr Amer 23 mL/min (>60); Estimated Creatinine Clearance 21.05 ml/min; Glucose 301 mg/dL (74-106); Potassium 5.9 mmol/L (3.5-5.1); Sodium Level 142 mmol/L (136-145)
[2021-04-23] MEDS: 0.9% Saline Lock 10 ML Syringe IV (18:14)
[2021-04-23] MEDS: Ipratropium 0.5 MG/2.5 ML SOLUTION INHALATION (19:08)
--- NOTE | 2021-04-23 21:09 | PCM.HOSP.N ---
Hospitalist Note Called to the bedside by Heidy SILVERMAN at 2041, patient sudden onset bradycardia heart rate 40s. Patient's family at bedside. Upon entering room patient showed asystole on the monitor. No radial or carotid pulses palpable, no apical pulse upon auscultation. Time of 04/23/20212049. Patient's currently not at bedside, notified by Heidy SILVERMAN of patient's passing. notified.
--- NOTE | 2021-04-23 21:43 | NURSING ---
2029 multiple family members here to see pt 2041 Pt began to jonathan down, sister in law called back into room, called to update on decline of patient 2043 Pt asystole on monitor, Guillermo in unit at this time to pronounce 2049 [facility] notified, [id number] reference number [id number] Field Map Editor notified, body released 2129 and more family at the bedside. 2149 [facility], unable to reach at this time.
--- NOTE | 2021-04-24 07:06 | PCM.DEATH ---
Preliminary Cause of Preliminary Cause of Preliminary Cause of : Acute hypoxic respiratory failure secondary to COVID-19 pneumonia and septic shock Date of Admission: 04/13/21 Date of : 04/23/21 Principle Diagnosis Problem List: Active and Suspected Problems (Updated 04/20/21 @ 12:[address] Rain Montanez MD) Septic shock (Acute) GREG (acute kidney injury) (Acute) Pneumonia due to COVID-19 virus (Acute) Acute respiratory failure with hypoxia (Acute) Acute renal insufficiency (Acute) Hospital Course Mr. Mccarty is a 75-year-old male with a history of hypertension, COPD, A. fib and a newly diagnosed brain mass that had not been worked up at the outside hospital presented with shortness of breath for about 7 or 8 days prior to admission. On admission to the hospital he was found to be positive for Covid. He was unvaccinated and on admission was found to have significant pneumonia. He did have a rapid increase in his oxygen requirements however on admission he elected to be a DNR CCA. On the first morning that I took him over he had a more significant decline requiring air Vo and eventual BiPAP. At that time I discussed with him whether or not he would like to reconsider the DNR CCA and the role of intubation, and he did state that he would like to be intubated if necessary. Therefore he was transferred to the intensive care unit and ultimately intubated. He was initially started on Decadron and remdesivir however due to lymphopenia he did not qualify for baricitinib at that time. He also did develop an GREG which continued to worsen, nephrology had been consulted as well. His pneumonia was complicated by sputum cultures demonstrating Pseudomonas and stenotrophomonas and was placed on Zosyn as well. However, he continued to deteriorate therefore family presented to bedside and had elected to terminally extubate him, time of was 2043 on 04/23/2021 Visit Charges Inpatient E&M: [id number] Disch Hosp
== END 2021-04-23 20:44 | DRG 207 ==
LOC: ED 17:24 → MS3 18:19 → ICU 04-14 10:11
PROVIDERS: Internal Medicine Critical Care Medicine; Internal Medicine Nephrology; Student in an Organized Health Care Education/Training Program; Admitting Provider Internal Medicine; Emergency Provider Emergency Medicine; PCP Family Medicine; Referring Provider Internal Medicine; Visit Provider Family Medicine
DX: U07.1 COVID-19 (principal); J12.82 Pneumonia due to coronavirus disease 2019; J15.1 Pneumonia due to Pseudomonas; R65.21 Severe sepsis with septic shock; J15.6 Pneumonia due to other Gram-negative bacteria; J80 Acute respiratory distress syndrome; A41.89 Other specified sepsis; N17.9 Acute kidney failure, unspecified; R57.8 Other shock; E87.6 Hypokalemia; E83.39 Other disorders of phosphorus metabolism; E86.0 Dehydration; I48.91 Unspecified atrial fibrillation; I10 Essential (primary) hypertension; H54.3 Unqualified visual loss, both eyes; Z79.01 Long term (current) use of anticoagulants; Z79.899 Other long term (current) drug therapy; Z87.891 Personal history of nicotine dependence; Z85.46 Personal history of malignant neoplasm of prostate; Z90.79 Acquired absence of other genital organ(s)
CPT/HCPCS: 31500; 31720; 36415; 36569; 36600; 71045; 80048; 80053; 80069; 82040; 82550; 82803; 82962; 83605; 83735; 83880; 83935; 84100; 84145; 84300; 84478; 85025; 85379; 87070; 87077; 87184; 87186; 87205; 87426; 87449; 87633; 93005; 94002; 94003; 94640; 94660; 94760; 97110; 97161; 97166; 97530; 97802; 97803; 99251; 99284; J7050; A4216; G0463; J1940; J3010; J3490